=== PATIENT | male | born 1980 | race Caucasian/White ===

== ENCOUNTER 2021-09-17 07:07 | Outpatient (CLI) | payer BC, SELFPAY ==
--- NOTE | 2021-09-17 | ECHO_ITS ---
Patient Info Name: Rsoendo Ley Age: 41 years : 1980 Gender: Male Ht: 70 in Wt: 220 lbs BSA: 2.25 m2 HR: 81 bpm BP: 135 / 90 mmHg Technical Quality: Fair Exam Date: 09/17/2021 8:02 AM Exam Location: [facility] Patient Status: Outpatient Admit Date: 09/17/2021 Staff Ordering Physician: AlliAndree NP Customer Marketing Manager: Aspen Wheeler RDCS Attending Provider: EmelyAndree NP Exam Type: CA echo doppler color flow Study Info Indications I25.2 - HISTORY OF OLD MYOCARDIAL INFARCTION Complete two-dimensional, color flow and Doppler transthoracic echocardiogram is performed. Summary 1. Complete two-dimensional, color flow and Doppler transthoracic echocardiogram is performed. 2. Normal LV size and wall thickness, normal LV systolic and diastolic function, ejection fraction 60-65%. Global longitudinal strain -20 %. Mitral valve mildly thickened, no significant MR. Normal aortic valve structure, no stenosis. Trivial TR, RVSP 30 mmHg. Left Ventricle Left ventricular chamber dimension is normal. Left ventricular systolic function is normal, estimated at 65-70%. There is no increased left ventricular wall thickness. The left ventricular diastolic function is normal. Right Ventricle Right ventricular chamber dimension is normal. Right ventricular systolic function is normal. Left Atria Left atrial chamber dimension is normal. Right Atria Right atrial chamber dimension is normal. Aortic Valve The aortic valve is normal. There is no aortic valve stenosis. Pulmonic Valve The pulmonic valve is normal. Mitral Valve The mitral valve has thickened leaflets. There is no mitral valve regurgitation. Tricuspid Valve The tricuspid valve leaflets are normal. There is trace tricuspid valve regurgitation. Aorta The aortic root size at the sinus of Valsalva is normal. Left Ventricular Outflow Tract Name Value Normal LVOT 2D LVOT Diameter 2.0 cm LVOT Doppler LVOT Peak Gradient 4 mmHg LVOT Mean Gradient 2 mmHg LVOT VTI 19 cm LVOT VTI/AV VTI Ratio 0.8 LVOT Stroke Volume 61 ml LVOT CO 5.1 l/min LVOT CI 2.3 l/min/m2 Pulmonic Valve Name Value Normal RVOT Doppler RVOT Peak Gradient 3 mmHg PV Doppler PV Peak Gradient 6 mmHg Mitral Valve Name Value Normal MV Doppler
== END 2021-09-17 07:08 | disposition home or self-care (01) ==
PROVIDERS: PCP Nurse Practitioner Adult Health; Visit Provider Nurse Practitioner Adult Health
DX: I25.2 Old myocardial infarction (principal)
CPT/HCPCS: 93306

== ENCOUNTER 2024-04-20 14:38 | Outpatient (CLI) | payer BC, SELFPAY ==
[2024-04-20 19:38] LABS: Basophils Absolute Auto 0.1 K/mm3 (0.0-0.1); Basophils Percent Auto 0.8 % (0.2-1.2); Eosinophils Absolute Auto 0.2 K/mm3 (0-0.3); Eosinophils Percent Auto 2.9 % (0-4.4); Hematocrit 50.7 % (42.0-52.0); Hemoglobin 16.3 g/dL (14.0-18.0); Immature Granulocyte Absolute 0.02 K/mm3 (0.00-0.031); Immature Granulocyte Percent A 0.3 % (0-0.5); Lymphocytes Absolute Auto 2.52 K/mm3 (0.9-3.2); Lymphocytes Percent Auto 34.9 % (18.3-44.2); Mean Corpuscular HGB Conc 32.1 g/dl (32-36); Mean Corpuscular Hemoglobin 30.2 pg (26-34); Mean Corpuscular Volume 93.9 fl (80-100); Mean Platelet Volume 10.2 fl (7.4-10.4); Monocytes Absolute Auto 0.5 K/mm3 (0.1-0.6); Monocytes Percent Auto 6.6 % (2.6-8.5); Neutrophils Absolute Auto 3.9 K/mm3 (1.3-6.7); Neutrophils Percent Auto 54.5 % (45.5-73.1); Platelet Count Result 262 k/mm3 (150-375); Red Cell Distribution Width 12.8 % (11.5-14.5); White Blood Count 7.2 K/mm3 (4.5-10.0)
[2024-04-20 19:54] LABS: Alanine Aminotransferase 35 U/L (6-50); Albumin Level 4.8 g/dL (3.5-5.1); Alkaline Phosphatase 52 U/L (38-126); Anion Gap 12 mmol/L (4-12); Aspartate Amino Transferase 61 U/L (17-59); Bilirubin,Total 0.7 mg/dL (0.2-1.3); Blood Urea Nitrogen 14 mg/dL (9-20); Calcium 9.3 mg/dL (8.4-10.2); Carbon Dioxide 31 mmol/L (22-30); Chloride 96 mmol/L (98-107); Cholesterol 149 mg/dL (0-200); Estimated Glomerular Filt Rate > 60; Glucose 105 mg/dL (65-110); HDL Direct 34 mg/dL; Potassium 3.1 mmol/L (3.4-5.0); Sodium 139 mmol/L (137-145); Triglycerides 286 mg/dL (<150)
[2024-04-20 20:05] LABS: LDL Cholesterol Direct 72 mg/dL
[2024-04-20 20:08] LABS: Hemoglobin A1C 6.8 % (<5.7)
[2024-04-20 20:32] LABS: Microalbumin Urine Random < 6.0 mg/L (0-16.7)
[2024-04-20 21:01] LABS: Folic Acid 9.9 ng/mL (2.76->20)
[2024-04-21 07:07] LABS: Creatinine Urine 103.5 mg/dL; MALB Creatinine Ratio < 5.8 mg/g (0-30)
== END 2024-04-20 14:39 | disposition home or self-care (01) ==
LOC: ANHBWCLAB 14:42
PROVIDERS: PCP Nurse Practitioner Adult Health; Visit Provider Nurse Practitioner Adult Health
DX: E11.9 Type 2 diabetes mellitus without complications (principal); I10 Essential (primary) hypertension; Z13.9 Encounter for screening, unspecified
CPT/HCPCS: 36415; 80053; 80061; 82043; 82565; 82607; 82746; 83036; 83735; 84439; 84443; 84480; 85025

== ENCOUNTER 2024-05-02 13:18 | Outpatient (CLI) | payer BC, SELFPAY ==
--- NOTE | ~2024-05-02 | XR_ITS ---
XR abdomen/kub 1V Ordering provider: Andree Carson APRN History: . R10.9 - Unspecified abdominal pain . Comparison: None. FINDINGS: BOWEL: Nonobstructive bowel gas pattern. ORGANOMEGALY: None. SIGNIFICANT PATHOLOGIC CALCIFICATIONS: None. OTHER: No free air is seen under the diaphragm. IMPRESSION: NO ACUTE ABDOMINAL FINDINGS. Reviewed, dictated and finalized at location A.
[2024-05-02 18:23] LABS: Hemoglobin 16.7 g/dL (14.0-18.0); Mean Corpuscular HGB Conc 32.1 g/dl (32-36); Mean Corpuscular Hemoglobin 30.5 pg (26-34); Mean Corpuscular Volume 94.9 fl (80-100); Mean Platelet Volume 9.6 fl (7.4-10.4); Platelet Count Result 289 k/mm3 (150-375); Red Blood Count 5.48 M/mm3 (4.6-6.20); White Blood Count 7.6 K/mm3 (4.5-10.0)
[2024-05-02 18:53] LABS: Alanine Aminotransferase 42 U/L (6-50); Albumin Level 4.9 g/dL (3.5-5.1); Alkaline Phosphatase 63 U/L (38-126); Amylase 88 U/L (30-110); Anion Gap 9 mmol/L (4-12); Aspartate Amino Transferase 78 U/L (17-59); Bilirubin,Total 0.9 mg/dL (0.2-1.3); Blood Urea Nitrogen 13 mg/dL (9-20); Calcium 9.2 mg/dL (8.4-10.2); Carbon Dioxide 29 mmol/L (22-30); Chloride 104 mmol/L (98-107); Estimated Glomerular Filt Rate > 60; Glucose 95 mg/dL (65-110); Lipase 102 U/L (23-300); Sodium 142 mmol/L (137-145)
== END 2024-05-02 13:19 | disposition home or self-care (01) ==
LOC: ANHBWCLAB 13:19
PROVIDERS: PCP Nurse Practitioner Adult Health; Visit Provider Nurse Practitioner Adult Health
DX: R10.9 Unspecified abdominal pain (principal)
CPT/HCPCS: 36415; 74018; 80053; 82150; 83690; 85027

== ENCOUNTER 2024-06-07 09:46 | Outpatient (CLI) | payer BC, SELFPAY ==
--- NOTE | ~2024-06-07 | XR_ITS ---
XR shoulder RT min 2V Ordering provider: Andree Carson APRN History: . S49.90XA - Unspecified injury of shoulder and upper arm, ... . Comparison: None. FINDINGS: BONES: No acute fracture or dislocation. JOINT SPACES: The acromioclavicular joint is normal. The glenohumeral joint is normal. SOFT TISSUES: Normal. IMPRESSION: No acute osseous abnormality right shoulder. Reviewed, dictated and finalized at location A.
== END 2024-06-07 09:47 | disposition home or self-care (01) ==
LOC: ANHBWCIMG 09:48
PROVIDERS: PCP Nurse Practitioner Adult Health; Visit Provider Nurse Practitioner Adult Health
DX: S49.90XA Unspecified injury of shoulder and upper arm, unspecified arm, initial encounter (principal); X58.XXXA Exposure to other specified factors, initial encounter
CPT/HCPCS: 73030

== ENCOUNTER 2024-08-23 13:37 | Outpatient (CLI) | payer BC, SELFPAY ==
--- NOTE | ~2024-08-23 | XR_ITS ---
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 RESULT: Lines, tubes, and devices: ACDF hardware. Lungs and pleura: Clear. Cardiomediastinal silhouette: Stable. Other: No acute osseous or upper abdominal finding. IMPRESSION: No acute cardiopulmonary process. Reviewed, dictated and finalized at location K. NE SURVEYOR
[2024-08-23 20:32] LABS: Alanine Aminotransferase 37 U/L (6-50); Albumin Level 4.7 g/dL (3.5-5.1); Alkaline Phosphatase 53 U/L (38-126); Anion Gap 4 mmol/L (4-12); Aspartate Amino Transferase 58 U/L (17-59); Bilirubin,Total 0.7 mg/dL (0.2-1.3); Blood Urea Nitrogen 11 mg/dL (9-20); Calcium 9.2 mg/dL (8.4-10.2); Carbon Dioxide 32 mmol/L (22-30); Chloride 105 mmol/L (98-107); Cholesterol 102 mg/dL (0-200); Estimated Glomerular Filt Rate > 60; Glucose 81 mg/dL (65-110); HDL Direct 49 mg/dL; Potassium 3.9 mmol/L (3.4-5.0); Sodium 141 mmol/L (137-145); Triglycerides 100 mg/dL (<150)
[2024-08-23 20:34] LABS: Hemoglobin A1C 5.5 % (<5.7)
[2024-08-23 20:43] LABS: LDL Cholesterol Direct 31 mg/dL
[2024-08-23 21:02] LABS: Creatinine Urine 27.8 mg/dL; Thyroid Stimulating Hormone 0.268 uIU/mL (0.465-4.680)
[2024-08-23 21:51] LABS: MALB Creatinine Ratio < 21.6 mg/g (0-30); Microalbumin Urine Random < 6.0 mg/L (0-16.7)
== END 2024-08-23 13:38 | disposition home or self-care (01) ==
PROVIDERS: PCP Nurse Practitioner Adult Health; Visit Provider Nurse Practitioner Adult Health
DX: R05.9 Cough, unspecified (principal); E03.9 Hypothyroidism, unspecified; E11.9 Type 2 diabetes mellitus without complications
CPT/HCPCS: 36415; 71046; 80053; 80061; 82043; 82565; 83036; 84443

== ENCOUNTER 2025-02-27 13:31 | Outpatient (CLI) | payer BC, SELFPAY ==
--- OUTSIDE RECORDS SUMMARY | 2025-02-27 14:35 | XMS_ITS | Encounter Summary ---
Author Organization [facility] Address [address] [address] Care Team Providers Care Tip Fixer Name Role Phone Jus Balderas MD Primary Care Provi melissa Felice Lindsey MD Primary Care Provider [phone] Jus Balderas MD Primary Care Provi melissa Felice Lindsey MD Primary Care Provider [phone] Kenneth Aviles MD Primary Care Provider [phone] Andree Carson NP Primary Care Provider [phone] Encounter Details Date Type Department Care Team (Latest Contact Info) Description 10/30/2016 Orders Only [facility] [place] Provider[place] MD [address] [place] [id number] Social History Tobacco Use Types Packs/Day Years Used Date Smoking Tobacco: Never Assessed Alcohol Use Standard Drinks/Week Comments Yes 0 (1 standard drink = 0.6 oz pur e alcohol) Sex and Gender Information Value Date Recorded Sex Assigned at Not on file Legal Sex Male 11:26 AM [employer] Gender Identity Not on file Sexual Orientation Not on file documented as of this encounter Plan of Treatment Not on file documented as of this encounter Procedures Procedure Name Priority Date/Time Associated Diagnosis Comments CARDIOLOGY REPORT 10/30/2016 documented in this encounter Results * CARDIOLOGY REPORT (10/30/2016) Anatomical Region Laterality Modality Other Narrative 10/30/2016 Ordered by an unspecified provider. us Historical Provider [facility] Final Result documented in this encounter Visit Diagnoses Not on filedocumented in this encounter Additional Health Concerns Infection Onset Date Last Indicated Resolved Time COVID: Suspected 05/08/2023 05/08/2023 05/08/2023 1:01 PM CDT COVID: Suspected 05/12/2023 05/12/2023 05/12/2023 12:06 PM CDT COVID: Suspected 07/01/2023 07/01/2023 07/01/2023 9:05 AM CDT COVID19 07/01/2023 07/01/2023 07/11/2023 3:06 AM CDT COVID: Recovered Comment:Added based on recent COVID infection. 07/11/2023 07/16/2023 10/09/2023 3:[address] COVID: Suspected 10/18/2024 10/18/2024 10/18/2024 7:23 PM [employer] documented as of this encounter Care Teams Tip Fixer Relationship Specialty Start Date End Date Jus Balderas MD [address] [place] [address] PCP - General 12/12/16 05/11/17 Felice Lindsey MD [address] [place] [address] PCP - General 11/14/16 12/11/16 Jus Balderas MD [address] [place] [address] PCP - General 07/09/12 11/13/16 Felice Lindsey MD [facility] [employer] [address] [place] [address] PCP - General 05/12/17 04/28/23 Kenneth Aviles MD [address] [place] [address] PCP - General Family Medicine 04/29/23 10/17/24 Andree Carson NP [address] [place] [address] [place] [address] PCP - General Nurse Practitioner 10/18/24 documented as of this encounter
--- OUTSIDE RECORDS SUMMARY | 2025-02-27 14:35 | XMS_ITS | Data Portability ---
Author Organization [place] [facility], Main Office Address [address] [place] [address] Assessment No assessment recorded. Plan of Treatment Reminders Order Date Submit Date Provider Last Modified By Organization Details Last Modified Time Details Appointments None recorded. Lab CMP, serum or plasma [address] (Lab), [address] [place], [address], 3 08:15:08 glycohemog lobin, total, blood [address] (Lab), [address] [place], [address], 3 08:15:08 TSH, serum or plasma [address] (Lab), [address] [place], [address], 3 08:15:08 lipid panel, serum [address] (Lab), [address] [place], [address], 3 08:15:07 Referral sleep medicine referral - has cpap and sleep study done [facility] in [place], [place]. Please call the pt to make an appointmen t. 2022 023 [email or web address] [facility], [address], [place], [address], 18:00:17 Procedures None recorded. Surgeries None recorded. Imaging None recorded. Medication Orders zolpidem 10 mg tablet 2022 023 [id number], [address], [place], [place], [id number], 17:16:34 Patient TargetsNo targets recorded. Patient Instructions Encounter Date Encounter Id Patient Instructions Last Modified By Organization Details Last Modified Time 12/23/2022 [id number] mo fu dm, SHERRILL, lipid, htn, thyroid, migraine, mood swings. [email or web address] Not available 12/23/2022 17:18:43 Reason for Referral Sleep Medicine Referral for Sleep apnea has cpap and sleep study done per [facility] in [place], [place]. Please call the pt to make an appointment. Referring Physician: Kaela Trinidad, Family Medicine, Encounter Date: 12/23/2022 Results Created Date Observation Date Name Description Value Unit Range Abnormal Flag Note LastModifiedBy Organization Detail LastModifiedTime 11/11/1911/12/2021 TSH TSH 11.30 mIU/L 0.40-4 .50 high Not Available [address] [address] [place], [address], 11/12/2021 15:01:26 11/11/19 22 11/12/2021 HEPAT IC FUNCT ION PANEL protein, total 7.1 g/dL 6.1-8. 1 normal Not Available [facility] [address] [address] [place], [address], 11/12/2021 15:01:25 11/11/19 22 11/12/2021 HEPAT IC FUNCT ION PANEL albumin 4.8 g/dL 3.6-5. 1 normal Not Available [facility] [address] [address] [place], [address], 11/12/2021 15:01:25 11/11/19 22 11/12/2021 HEPAT IC FUNCT ION PANEL globulin 2.3 g/dL_ (calc ) 1.9-3. 7 normal Not Available [address], [address], 11/12/2021 15:01:25 11/11/19 22 11/12/2021 HEPAT IC FUNCT ION PANEL albumin/glob ulin ratio 2.1 (calc ) 1.0-2. 5 normal Not Available [address], [address], 11/12/2021 15:01:25 11/11/19 22 11/12/2021 HEPAT IC FUNCT ION PANEL bilirubin, total 0.8 mg/dL 0.2-1. 2 normal Not Available [address], [address], 11/12/2021 15:01:25 11/11/19 22 11/12/2021 HEPAT IC FUNCT ION PANEL bilirubin, direct 0.1 mg/dL < or = 0.2 normal Not Available [address], [address], 11/12/2021 15:01:25 11/11/19 22 11/12/2021 HEPAT IC FUNCT ION PANEL bilirubin, indirect 0.7 mg/dL _(miaa c) 0.2-1. 2 normal Not Available [address], [address], 11/12/2021 15:01:25 11/11/19 22 11/12/2021 HEPAT IC FUNCT ION PANEL alkaline phosphatase 55 U/L 36-130 normal Not Available [facility] [employer] [address], [address], 11/12/2021 15:01:25 11/11/19 22 11/12/2021 HEPAT IC FUNCT ION PANEL AST 15 U/L 10-40 normal Not Available [address], [address], 11/12/2021 15:01:25 11/11/19 22 11/12/2021 HEPAT IC FUNCT ION PANEL ALT 23 U/L 9-46 normal Not Available [address], [address], 11/12/2021 15:01:25 11/11/19 22 11/12/2021 BASIC METAB OLIC PANEL glucose 91 mg/dL 65-99 normal Fasti ng refer ence inter luanne Not Available [address], [address], 11/12/2021 15:01:25 11/11/19 22 11/12/2021 BASIC METAB OLIC PANEL urea nitrogen (BUN) 13 mg/dL 7-25 normal Not Available [address], [address], 11/12/2021 15:01:25 11/11/19 22 11/12/2021 BASIC METAB OLIC PANEL creatinine 1.08 mg/dL 0.60-1 .35 normal Not Available [address], [address], 11/12/2021 15:01:25 11/11/19 22 11/12/2021 BASIC METAB OLIC PANEL eGFR non-afr. vincentian 84 mL/mi n/1.7 3m2 > or = 60 normal Not Available [address], [address], 11/12/2021 15:01:25 11/11/19 22 11/12/2021 BASIC METAB OLIC PANEL eGFR 98 mL/mi n/1.7 3m2 > or = 60 normal Not Available [address], [address], 11/12/2021 15:01:25 11/11/19 22 11/12/2021 BASIC METAB OLIC PANEL BUN/creatini ne ratio not applic able (calc ) 6-22 Not Available [address], [address], 11/12/2021 15:01:25 11/11/19 22 11/12/2021 BASIC METAB OLIC PANEL sodium 137 mmol/ L 135-14 6 normal Not Available [address], [address], 11/12/2021 15:01:25 11/11/19 22 11/12/2021 BASIC METAB OLIC PANEL potassium 3.9 mmol/ L 3.5-5. 3 normal Not Available [address], [address], 11/12/2021 15:01:25 11/11/19 22 11/12/2021 BASIC METAB OLIC PANEL chloride 104 mmol/ L 98-110 normal Not Available [address], [address], 11/12/2021 15:01:25 11/11/19 22 11/12/2021 BASIC METAB OLIC PANEL carbon dioxide 21 mmol/ L 20-32 normal Not Available [address], [address], 11/12/2021 15:01:25 11/11/19 22 11/12/2021 BASIC METAB OLIC PANEL calcium 9.2 mg/dL 8.6-10 .3 normal Not Available [address], [address], 11/12/2021 15:01:25 11/11/19 22 11/12/2021 ALBUM INCLEMENT URINE W/CRE ATINI NE creatinine, random urine 218 mg/dL 20-320 normal Not Available [address], [address], 11/12/2021 15:01:24 11/11/19 22 11/12/2021 ALBUM IN, RANDO M URINE W/CRE ATINI NE albumin, urine 1.6 mg/dL see note: normal Refer ence Range : Refer ence Range Not estab lishe d Not Available [address], [address], 11/12/2021 15:01:24 11/11/19 22 11/12/2021 ALBUM IN, RANDO M URINE W/CRE ATINI NE albumin/crea tinine ratio, random urine 7 mcg/m g_cre at <30 normal The ADA defin es abnor malit ies in album in excre tion as follo ws: Album inuri a Categ ory Resul t (mcg/ mg creat inine ) Aisha l to Mildl y incre ased <30 Moder ately incre ased 30-29 9 Sever kellee incre ased > OR = 300 The ADA recom mends that at least two of three speci mens colle cted withi n a 3-6 month perio d be abnor mal befor e consi anne g a patie nt to be withi n a diagn ostic categ ory. Not Available [address], [address], 11/12/2021 15:01:24 11/11/19 22 11/12/2021 LIPID PANEL , STAND JAMIE cholesterol, total 236 mg/dL <200 high Not Available [facility] [address] [place], [address], 11/12/2021 15:01:24 11/11/19 22 11/12/2021 LIPID PANEL , STAND JAMIE HDL cholesterol 39 mg/dL > or = 40 low Not Available [address], [address], 11/12/2021 15:01:24 11/11/19 22 11/12/2021 LIPID PANEL , STAND JAMIE triglyceride s 212 mg/dL <150 high If a non-f astin g speci men was colle cted, consi melissa repea t trigl yceri de testi ng on a fasti ng speci men if clini hitesh indic ated. Shawn mehta et al. J. of Clin. Lipid ol. 2015; 9:129 -169. Not Available [address], [address], 11/12/2021 15:01:24 11/11/19 22 11/12/2021 LIPID PANEL , STAND JAMIE LDL-choleste rol 159 mg/dL _(maia c) high Refer ence range : <100 Josh able range <100 mg/dL for prima ry preve ntion ; <70 mg/dL for patie nts with CHD or diabe tic patie nts with > or = 2 CHD risk facto rs. LDL-C is now calcu lated using the Lina n-Hop kins calcu latio n, which is a valid ated novel metho d provi ding rina r accur acy than the Fried cayden equat ion in the estim ation of LDL-C . Lina owen SS et al. ALYSSIA. 2013; 310(1 9): 2061- 2068 (http ://ed ucati on.Qu UKDN Waterflow. com/f aq/FA Q164) Not Available [address], [address], 11/12/2021 15:01:24 11/11/19 22 11/12/2021 LIPID PANEL , STAND JAMIE chol/HDLC ratio 6.1 (calc ) <5.0 high Not Available [address], [address], 11/12/2021 15:01:24 11/11/19 22 11/12/2021 LIPID PANEL , STAND JAMIE non HDL cholesterol 197 mg/dL _(maia c) <130 high For patie nts with diabe ericka plus 1 major ASCVD risk facto r, treat ing to a non-H DL-C goal of <100 mg/dL (LDL- C of <70 mg/dL ) is consi dered a thera peuti c optio n. Not Available [facility] [id number] [place] [address], [address], 11/12/2021 15:01:24 11/11/19 22 11/11/2021 hemog lobin A1C, rand mckenzie HgbA1C 7.4 Not Available [facility] [address] , [address], [place], [address], 11/11/2021 10:52:20 03/25/20 22 03/26/2022 HEMOG LOBIN A1C hemoglobin A1C 5.9 %_of_ total _HGB <5.7 high For someo ne witho ut known diabe ericka, a hemog lobin A1c value betwe en 5.7% and 6.4% is consi stent with predi abete s and shoul d be confi rmed with a follo w-up test. For someo ne with known diabe ericka, a value <7% indic ates that their diabe ericka is well contr olled . A1c targe ts shoul d be indiv idual ized based on durat ion of diabe ericka, age, comor bid condi tions , and other consi derat ions. This assay resul t is consi stent with an incre ased risk of diabe ericka. Curre ntly, no conse nsus exist s alfredar evgeny use of hemog lobin A1c for diagn osis of diabe ericka for child julián. Not Available [facility] [address] [address], [place], [address], 03/26/2022 15:13:29 03/25/20 22 03/26/2022 VITAM IN D,25- OH,TO CAMDEN,I A vitamin D,25-oh,tota l,ia 88 NG/mL 30-100 normal Vitam in D Statu s 25-OH Vitam in D: Defic iency : <20 ng/mL Insuf ficie ncy: 20 - 29 ng/mL Optim al: > or = 30 ng/mL For 25-OH Vitam in D testi ng on patie nts on D2-penn pplem entat ion and patie nts for whom quant itati on of D2 and D3 fract ions is requi red, the [facility] e[facility](TM ) 25-OH VIT D, (D2,D 3), LC/MS /MS is recom artie d: order code [id number] (juan ents >2yrs ). See Note 1 Note 1 For addit ional infor esteban archer refer to http: //[facility] caroline Soto stDia gnost ics.c om/fa q/FAQ 199 (This link is being provi ded for infor cherise dee/ educcaleb lópez purpo ses only. ) Not Available [address] [address] [place], [address], 03/26/2022 15:13:29 03/25/20 22 03/26/2022 TSH TSH 6.89 mIU/L 0.40-4 .50 high Not Available [address], [address], 03/26/2022 15:13:28 03/25/20 22 03/26/2022 HEPAT IC FUNCT ION PANEL bilirubin, direct 0.2 mg/dL < or = 0.2 normal Not Available [address], [address], 03/26/2022 15:13:28 03/25/20 22 03/26/2022 HEPAT IC FUNCT ION PANEL bilirubin, indirect 0.6 mg/dL _(maia c) 0.2-1. 2 normal Not Available [address] [address] [place], [address], 03/26/2022 15:13:28 03/25/20 22 03/26/2022 HEPAT IC FUNCT ION PANEL alkaline phosphatase 49 U/L 36-130 normal Not Available [facility] [employer] [address] [address] [place], [address], 03/26/2022 15:13:28 03/25/20 22 03/26/2022 HEPAT IC FUNCT ION PANEL AST 18 U/L 10-40 normal Not Available [address], [address], 03/26/2022 15:13:28 03/25/20 22 03/26/2022 HEPAT IC FUNCT ION PANEL ALT 23 U/L 9-46 normal Not Available [address], [address], 03/26/2022 15:13:28 03/25/20 22 03/26/2022 HEPAT IC FUNCT ION PANEL protein, total 7.4 g/dL 6.1-8. 1 normal Not Available [address], [address], 03/26/2022 15:13:28 03/25/20 22 03/26/2022 HEPAT IC FUNCT ION PANEL albumin 4.9 g/dL 3.6-5. 1 normal Not Available [address], [address], 03/26/2022 15:13:28 03/25/20 22 03/26/2022 HEPAT IC FUNCT ION PANEL globulin 2.5 g/dL_ (calc ) 1.9-3. 7 normal Not Available [address], [address], 03/26/2022 15:13:28 03/25/20 22 03/26/2022 HEPAT IC FUNCT ION PANEL albumin/glob ulin ratio 2.0 (calc ) 1.0-2. 5 normal Not Available [address], [address], 03/26/2022 15:13:28 03/25/20 22 03/26/2022 HEPAT IC FUNCT ION PANEL bilirubin, total 0.8 mg/dL 0.2-1. 2 normal Not Available [address], [address], 03/26/2022 15:13:28 03/25/20 22 03/26/2022 BASIC METAB OLIC PANEL glucose 87 mg/dL 65-99 normal Fasti ng refer ence inter luanne Not Available [address], [address], 03/26/2022 15:13:28 03/25/20 22 03/26/2022 BASIC METAB OLIC PANEL urea nitrogen (BUN) 16 mg/dL 7-25 normal Not Available [address], [address], 03/26/2022 15:13:28 03/25/20 22 03/26/2022 BASIC METAB OLIC PANEL creatinine 1.22 mg/dL 0.60-1 .29 normal Not Available [address], [address], 03/26/2022 15:13:28 03/25/20 22 03/26/2022 BASIC METAB OLIC PANEL eGFR 76 mL/mi n/1.7 3m2 > or = 60 normal The eGFR is based on the CKD-E PI 2020 equat ion. To calcu late the new eGFR from a previ ous Creat inine or Cysta andrey C resul t, go to https ://sea ceballos.sophia ray/oly yung s/ kdoqi /gfr% 5Fcal culat or Not Available [address], [address], 03/26/2022 15:13:28 03/25/20 22 03/26/2022 BASIC METAB OLIC PANEL BUN/creatini ne ratio not applic able (calc ) 6-22 Not Available [address], [address], 03/26/2022 15:13:28 03/25/20 22 03/26/2022 BASIC METAB OLIC PANEL sodium 141 mmol/ L 135-14 6 normal Not Available [address], [address], 03/26/2022 15:13:28 03/25/20 22 03/26/2022 BASIC METAB OLIC PANEL potassium 4.2 mmol/ L 3.5-5. 3 normal Not Available [address], [address], 03/26/2022 15:13:28 03/25/20 22 03/26/2022 BASIC METAB OLIC PANEL chloride 103 mmol/ L 98-110 normal Not Available [address], [address], 03/26/2022 15:13:28 03/25/20 22 03/26/2022 BASIC METAB OLIC PANEL carbon dioxide 31 mmol/ L 20-32 normal Not Available [address], [address], 03/26/2022 15:13:28 03/25/20 22 03/26/2022 BASIC METAB OLIC PANEL calcium 9.6 mg/dL 8.6-10 .3 normal Not Available [address], [address], 03/26/2022 15:13:28 03/25/20 22 03/26/2022 ALBUM IN, RANDO M URINE W/CRE ATINI NE creatinine, random urine 81 mg/dL 20-320 normal Not Available [address], [address], 03/26/2022 15:13:27 03/25/20 22 03/26/2022 ALBUM IN, RANDO M URINE W/CRE ATINI NE albumin, urine 0.5 mg/dL see note: normal Refer ence Range : Refer ence Range Not estab lishe d Not Available [address], [address], 03/26/2022 15:13:27 03/25/20 22 03/26/2022 ALBUM IN, RANDO M URINE W/CRE ATINI NE albumin/crea tinine ratio, random urine 6 mcg/m g_cre at <30 normal The ADA defin es abnor malit ies in album in excre tion as follo ws: Album inuri a Categ ory Resul t (mcg/ mg creat inine ) Aisha l to Mildl y incre ased <30 Moder ately incre ased 30-29 9 Sever kellee incre ased > OR = 300 The ADA recom mends that at least two of three speci mens colle cted withi n a 3-6 month perio d be abnor mal befor e consi anne g a patie nt to be withi n a diagn ostic categ ory. Not Available [address], [address], 03/26/2022 15:13:27 03/25/20 22 03/26/2022 LIPID PANEL , STAND JAMIE cholesterol, total 157 mg/dL <200 normal Not Available [address], [address], 03/26/2022 15:13:27 03/25/20 22 03/26/2022 LIPID PANEL , STAND JAMIE HDL cholesterol 42 mg/dL > or = 40 normal Not Available [address], [address], 03/26/2022 15:13:27 03/25/20 22 03/26/2022 LIPID PANEL , STAND JAMIE triglyceride s 242 mg/dL <150 high If a non-f astin g speci men was colle cted, consi melissa repea t trigl yceri de testi ng on a fasti ng speci men if clini hitesh indic ated. Shawn mehta et al. J. of Clin. Lipid ol. 2015; 9:129 -169. Not Available [address], [address], 03/26/2022 15:13:27 03/25/20 22 03/26/2022 LIPID PANEL , STAND JAMIE LDL-choleste rol 81 mg/dL _(maia c) normal Refer ence range : <100 Josh able range <100 mg/dL for prima ry preve ntion ; <70 mg/dL for patie nts with CHD or diabe tic patie nts with > or = 2 CHD risk facto rs. LDL-C is now calcu lated using the Lina n-Hop kins calcu springchong n, which is a valid ated novel metho d provi evgeny rina r accur acy than the Fried cayden equat ion in the estim ation of LDL-C . Lina owen SS et al. ALYSSIA. 2013; 310(1 9): 2061- 206 (http ://ed ucati on.Qu UKDN Waterflow. com/f aq/FA Q164) Not Available [facility] [address] [address], [place], [address], 03/26/2022 15:13:27 03/25/20 22 03/26/2022 LIPID PANEL , STAND JAMIE chol/HDLC ratio 3.7 (calc ) <5.0 normal Not Available [facility] [address] [address], [place], [address], 03/26/2022 15:13:27 03/25/20 22 03/26/2022 LIPID PANEL , STAND JAMIE non HDL cholesterol 115 mg/dL _(maia c) <130 normal For patie nts with diabe ericka plus 1 major ASCVD risk facto r, treat ing to a non-H DL-C goal of <100 mg/dL (LDL- C of <70 mg/dL ) is consi dered a thera peuti c optio n. Not Available [facility] [address] [place], [address], 03/26/2022 15:13:27 09/05/20 22 09/06/2022 HEMOG LOBIN A1C hemoglobin A1C 6.3 %_of_ total _HGB <5.7 high For someo ne witho ut known diabe ericka, a hemog lobin A1c value betwe en 5.7% and 6.4% is consi stent with predi abete s and shoul d be confi rmed with a follo w-up test. For someo ne with known diabe ericka, a value <7% indic ates that their diabe ericka is well contr olled . A1c targe ts shoul d be indiv idual ized based on durat ion of diabe ericka, age, comor bid condi tions , and other consi derat ions. This assay resul t is consi stent with an incre ased risk of diabe ericka. Curre ntly, no conse nsus exist s regar ding use of hemog lobin A1c for diagn osis of diabe ericka for child julián. Not Available [facility] [address], [address], 09/06/2022 03:19:48 09/05/20 22 09/06/2022 T4, FREE T4, free 0.9 NG/dL 0.8-1. 8 normal Not Available [facility] [address], [address], 09/06/2022 03:19:48 09/05/20 22 09/06/2022 TSH W/REF COLTON TO FT4 TSH w/reflex to FT4 9.53 mIU/L 0.40-4 .50 high Not Available [facility] [address], [address], 09/06/2022 03:19:47 09/05/20 22 09/06/2022 CBC (INCL UDES DIFF/ PLT) white blood cell count 5.8 thous and/u L 3.8-10 .8 normal Not Available [facility] [address], [address], 09/06/2022 03:19:47 09/05/20 22 09/06/2022 CBC (INCL UDES DIFF/ PLT) red blood cell count 5.64 alvaro on/uL 4.20-5 .80 normal Not Available [facility] [address], [address], 09/06/2022 03:19:47 09/05/20 22 09/06/2022 CBC (INCL UDES DIFF/ PLT) hemoglobin 16.9 g/dL 13.2-1 7.1 normal Not Available [address], [address], 09/06/2022 03:19:47 09/05/20 22 09/06/2022 CBC (INCL UDES DIFF/ PLT) hematocrit 50.6 % 38.5-5 0.0 high Not Available [address], [address], 09/06/2022 03:19:47 09/05/20 22 09/06/2022 CBC (INCL UDES DIFF/ PLT) MCV 89.7 fL 80.0-1 00.0 normal Not Available [address], [address], 09/06/2022 03:19:47 09/05/20 22 09/06/2022 CBC (INCL UDES DIFF/ PLT) MCH 30.0 pg 27.0-3 3.0 normal Not Available [address], [address], 09/06/2022 03:19:47 09/05/20 22 09/06/2022 CBC (INCL UDES DIFF/ PLT) MCHC 33.4 g/dL 32.0-3 6.0 normal Not Available [address], [address], 09/06/2022 03:19:47 09/05/20 22 09/06/2022 CBC (INCL UDES DIFF/ PLT) RDW 12.4 % 11.0-1 5.0 normal Not Available [address], [address], 09/06/2022 03:19:47 09/05/20 22 09/06/2022 CBC (INCL UDES DIFF/ PLT) platelet count 239 thous and/u L 140-40 0 normal Not Available [address], [address], 09/06/2022 03:19:47 09/05/20 22 09/06/2022 CBC (INCL UDES DIFF/ PLT) MPV 10.9 fL 7.5-12 .5 normal Not Available [address], [address], 09/06/2022 03:19:47 09/05/20 22 09/06/2022 CBC (INCL UDES DIFF/ PLT) absolute neutrophils 3323 cells /uL 1500-7 800 normal Not Available [address], [address], 09/06/2022 03:19:47 09/05/20 22 09/06/2022 CBC (INCL UDES DIFF/ PLT) absolute lymphocytes 1763 cells /uL 850-39 00 normal Not Available [address], [address], 09/06/2022 03:19:47 09/05/20 22 09/06/2022 CBC (INCL UDES DIFF/ PLT) absolute monocytes 516 cells /uL 200-95 0 normal Not Available [address], [address], 09/06/2022 03:19:47 09/05/20 22 09/06/2022 CBC (INCL UDES DIFF/ PLT) absolute eosinophils 157 cells /uL 15-500 normal Not Available [address], [address], 09/06/2022 03:19:47 09/05/20 22 09/06/2022 CBC (INCL UDES DIFF/ PLT) absolute basophils 41 cells /uL 0-200 normal Not Available [address], [address], 09/06/2022 03:19:47 09/05/20 22 09/06/2022 CBC (INCL UDES DIFF/ PLT) neutrophils 57.3 % normal Not Available [address], [address], 09/06/2022 03:19:47 09/05/20 22 09/06/2022 CBC (INCL UDES DIFF/ PLT) lymphocytes 30.4 % normal Not Available [address], [address], 09/06/2022 03:19:47 09/05/20 22 09/06/2022 CBC (INCL UDES DIFF/ PLT) monocytes 8.9 % normal Not Available [address], [address], 09/06/2022 03:19:47 09/05/20 22 09/06/2022 CBC (INCL UDES DIFF/ PLT) eosinophils 2.7 % normal Not Available [address], [address], 09/06/2022 03:19:47 09/05/20 22 09/06/2022 CBC (INCL UDES DIFF/ PLT) basophils 0.7 % normal Not Available [address], [address], 09/06/2022 03:19:47 09/05/20 22 09/06/2022 COMPR EHENS MIGNON METAB OLIC PANEL glucose 107 mg/dL 65-99 high Fasti ng refer ence inter luanne For someo ne witho ut known diabe ericka, a gluco se value betwe en 100 and 125 mg/dL is consi stent with predi abete s and shoul d be confi rmed with a follo w-up test. Not Available [address], [address], 09/06/2022 03:19:46 09/05/20 22 09/06/2022 COMPR EHENS MIGNON METAB OLIC PANEL urea nitrogen (BUN) 14 mg/dL 7-25 normal Not Available [address] [address] [place], [address], 09/06/2022 03:19:46 09/05/20 22 09/06/2022 COMPR EHENS MIGNON METAB OLIC PANEL creatinine 1.18 mg/dL 0.60-1 .29 normal Not Available [address] [address] [place], [address], 09/06/2022 03:19:46 09/05/20 22 09/06/2022 COMPR EHENS MIGNON METAB OLIC PANEL eGFR 79 mL/mi n/1.7 3m2 > or = 60 normal The eGFR is based on the CKD-E PI 2020 equat ion. To calcu late the new eGFR from a previ ous Creat inine or Cysta tin C resul t, go to https ://sea ceballos.sophia ray/oly yung s/ kdoqi /gfr% 5Fcal culat or Not Available [address] [address] [place], [address], 09/06/2022 03:19:46 09/05/20 22 09/06/2022 COMPR EHENS MIGNON METAB OLIC PANEL BUN/creatini ne ratio not applic able (calc ) 6-22 Not Available [address] [place], [address], 09/06/2022 03:19:46 09/05/20 22 09/06/2022 COMPR EHENS MIGNON METAB OLIC PANEL sodium 140 mmol/ L 135-14 6 normal Not Available [address] [address] [place], [address], 09/06/2022 03:19:46 09/05/20 22 09/06/2022 COMPR EHENS MIGNON METAB OLIC PANEL potassium 4.0 mmol/ L 3.5-5. 3 normal Not Available [facility] [place] [address] [address] [place], [address], 09/06/2022 03:19:46 09/05/20 22 09/06/2022 COMPR EHENS MIGNON METAB OLIC PANEL chloride 105 mmol/ L 98-110 normal Not Available [address], [address], 09/06/2022 03:19:46 09/05/20 22 09/06/2022 COMPR EHENS MIGNON METAB OLIC PANEL carbon dioxide 28 mmol/ L 20-32 normal Not Available [address], [address], 09/06/2022 03:19:46 09/05/20 22 09/06/2022 COMPR EHENS MIGN[facility] METAB OLIC PANEL calcium 9.3 mg/dL 8.6-10 .3 normal Not Available [address], [address], 09/06/2022 03:19:46 09/05/20 22 09/06/2022 COMPR EHENS MIGNON METAB OLIC PANEL protein, total 7.3 g/dL 6.1-8. 1 normal Not Available [address], [address], 09/06/2022 03:19:46 09/05/20 22 09/06/2022 COMPR EHENS MIGNON METAB OLIC PANEL albumin 4.7 g/dL 3.6-5. 1 normal Not Available [address], [address], 09/06/2022 03:19:46 09/05/20 22 09/06/2022 COMPR EHENS MIGNON METAB OLIC PANEL globulin 2.6 g/dL_ (calc ) 1.9-3. 7 normal Not Available [address], [address], 09/06/2022 03:19:46 09/05/20 22 09/06/2022 COMPR EHENS MIGN[facility] METAB OLIC PANEL albumin/glob ulin ratio 1.8 (calc ) 1.0-2. 5 normal Not Available [address], [address], 09/06/2022 03:19:46 09/05/20 22 09/06/2022 COMPR EHENS MIGNON METAB OLIC PANEL bilirubin, total 0.8 mg/dL 0.2-1. 2 normal Not Available [address], [address], 09/06/2022 03:19:46 09/05/20 22 09/06/2022 COMPR EHENS MIGNON METAB OLIC PANEL alkaline phosphatase 50 U/L 36-130 normal Not Available [facility] [employer] [address], [address], 09/06/2022 03:19:46 09/05/20 22 09/06/2022 COMPR EHENS MIGNON METAB OLIC PANEL AST 24 U/L 10-40 normal Not Available [address] [address], [address], 09/06/2022 03:19:46 09/05/20 22 09/06/2022 COMPR EHENS MIGNON METAB OLIC PANEL ALT 32 U/L 9-46 normal Not Available [address], [address], 09/06/2022 03:19:46 09/05/20 22 09/06/2022 LIPID PANEL , STAND JAMIE cholesterol, total 155 mg/dL <200 normal Not Available [address], [address], 09/06/2022 03:19:46 09/05/20 22 09/06/2022 LIPID PANEL , STAND JAMIE HDL cholesterol 35 mg/dL > or = 40 low Not Available [address], [address], 09/06/2022 03:19:46 09/05/20 22 09/06/2022 LIPID PANEL , STAND JAMIE triglyceride s 257 mg/dL <150 high If a non-f astin g speci men was colle cted, consi melissa repea t trigl yceri de testi ng on a fasti ng speci men if clini hitesh indic ated. Shawn mehta et al. J. of Clin. Lipid ol. 2015; 9:129 -169. Not Available [facility] [id number] [place] [address], [address], 09/06/2022 03:19:46 09/05/20 22 09/06/2022 LIPID PANEL , STAND JAMIE LDL-choleste rol 86 mg/dL _(maai c) normal Refer ence range : <100 Josh able range <100 mg/dL for prima ry preve ntion ; <70 mg/dL for patie nts with CHD or diabe tic patie nts with > or = 2 CHD risk facto rs. LDL-C is now calcu lated using the Lina n-Hop kins calcu latchong n, which is a valid ated novel metho d provi ding rina r accur acy than the Fried cayden equat ion in the estim ation of LDL-C . Lina owen SS et al. ALYSSIA. 2013; 310(1 9): 2061- 2068 (http ://ed ucati on.Qu moniqueGOBA. com/f aq/FA Q164) Not Available [facility] [address] [place], [address], 09/06/2022 03:19:46 09/05/20 22 09/06/2022 LIPID PANEL , STAND JAMIE chol/HDLC ratio 4.4 (calc ) <5.0 normal Not Available [facility] [address] [place], [address], 09/06/2022 03:19:46 09/05/20 22 09/06/2022 LIPID PANEL , STAND JAMIE non HDL cholesterol 120 mg/dL _(maia c) <130 normal For patie nts with diabe ericka plus 1 major ASCVD risk facto r, treat ing to a non-H DL-C goal of <100 mg/dL (LDL- C of <70 mg/dL ) is krishna sparks n. Not Available [facility] [address], [place], [address], 09/06/2022 03:19:46 10/02/19 23 10/01/2022 stres s echoc ardio gram No observ ation record ed. [id number] [facility] [address], [place], [address], 11/13/2022 00:29:04 Result Notes None recorded. Problems Name Problem SNOMED Code Status Onset Date Resolution Date Notes Provider Name and Address Organization Details Recorded Time Tobacco user 868925531 Active 2021 Not Available [facility] 3 02:05:30 Non-alcoholic fatty liver 809987341 Active 2017 Not Available [facility] 3 02:05:30 Myocardial infarction 70606079 Active 2017 Not Available [facility] 3 02:05:30 Hypertriglyce ridemia 156419390 Active 2021 Not Available [facility] 3 02:05:30 Type 2 diabetes mellitus without complication 513802416 Active 2021 Not Available [facility] 3 02:05:30 Vitamin D deficiency 96359892 Active 2020 Not Available [facility] 3 02:05:30 Dyslipidemia 614495811 Active Not Available [facility] 3 02:05:30 Migraine 98281416 Active 2021 Not Available [facility] 3 02:05:30 Hypertensive disorder 81281754 Active 2017 Not Available [facility] 3 02:05:30 History of myocardial infarction 796514427 Active 2020 Not Available [facility] 3 02:05:30 Ingrowing toenail 443112486 Active 2021 Not Available [facility] 3 02:05:30 Hypothyroidis m 59726099 Active 2020 Not Available Replaced by [facility] 3 02:05:31 Uncontrolled type 2 diabetes mellitus 943947184 Active 2021 Not Available [facility] 3 02:05:31 Hyperlipidemi a 97626863 Active 2020 Not Available [facility] 3 02:05:31 Diabetes mellitus 45411908 Active 2020 Not Available [facility] 3 02:05:31 Sleep apnea 45780798 Active 2020 Not Available Replaced by [facility] 3 02:05:31 Pain in limb 10644789 Active Not Available Replaced by [facility] 3 02:05:31 Type 2 diabetes mellitus 52334650 Active 2022 Not Available Replaced by [facility] 3 02:05:31 Gastroesophag eal reflux disease 612305964 Active 2022 Not Available Replaced by [facility] 3 02:05:30 Insomnia 763582623 Active 2022 Not Available Replaced by [facility] 3 02:05:30 Mood swings 04366634 Active 2022 Not Available Replaced by [facility] 3 02:05:30 Problem Notes None recorded. Procedures Surgical History Date Name Laterality Status Provider Name and Address Organization Details Recorded Time Neck Surgeries completed Not Available [facility] 11/13/2022 00:26:05 Appendectomy completed Not Available [facility] 11/13/2022 00:26:05 Vasectomy completed Not Available Replaced by [facility] 0 11/13/2022 00:26:05 fit complete upper and lower dentures completed Not Available Replaced by [facility] 11/13/2022 00:26:05 Imaging Results None recorded. Procedure Notes None recorded. Medical Equipment None Reported. Allergies No known drug allergies Medications Name Sig Start Date Stop Date Status Note LastModified by Organization Details LastModified Time losartan 50 mg tablet 12/23 completed Not Available Not Available Not Available cyclobenz aprine 10 mg tablet TAKE 1 TABLET BY MOUTH THREE TIMES DAILY NEEDED 09/04 completed Not Available Not Available Not Available atorvasta tin 80 mg tablet Take 1 tablet every day by oral route. 10/03 completed Not Available Not Available Not Available prednison e 10 mg tablet 03/25 completed Not Available Not Available Not Available atorvasta tin 20 mg tablet 09/05 completed Not Available Not Available Not Available cetirizin e 10 mg tablet Take 1 tablet every day by oral route for 90 days. 06/26 completed Not Available Not Available Not Available azithromy isamar 250 mg tablet TK TWO TS AT ONCE LUPIS THEN TK ONE T - D FOR FOUR DAYS 03/25 completed Not Available Not Available Not Available ibuprofen 800 mg tablet 03/25 completed Not Available Not Available Not Available alprazola m 1 mg tablet 03/25 completed Not Available Not Available Not Available metoprolo l tartrate 100 mg tablet Take 1.5 tablets twice a day by oral route for 90 days. 12/23 completed Not Available Not Available Not Available hydrocodo ne 5 mg-acetam inophen 325 mg tablet 03/25 completed Not Available Not Available Not Available lisinopri l 20 mg tablet Take 1 po daily 03/25 completed Not Available Not Available Not Available prednison e 20 mg tablet TAKE 2 TABLETS BY MOUTH DAILY X5 DAYS 09/04 completed Not Available Not Available Not Available rizatript an 10 mg tablet 03/25 completed Not Available Not Available Not Available penicilli n V potassium 500 mg tablet 03/25 completed Not Available Not Available Not Available hydrocodo ne 10 mg-acetam inophen 325 mg tablet 03/25 completed Not Available Not Available Not Available tramadol 50 mg tablet TAKE 1 TABLET BY MOUTH TWICE DAILY FOR 7 DAYS NEEDED FOR SEVERE PAIN 09/04 completed Not Available Not Available Not Available meloxicam 7.5 mg tablet 03/25 completed Not Available Not Available Not Available alprazola m 0.5 mg tablet TAKE 1 TABLET BY MOUTH EVERY DAY 12/23 completed Not Available Not Available Not Available potassium chloride 20 mEq oral packet Take 1 packet 4 times a day by oral route. 09/04 completed Not Available Not Available Not Available amoxicill in 875 mg tablet 03/25 completed Not Available Not Available Not Available aspirin 325 mg tablet,de layed release 03/25 completed Not Available Not Available Not Available oxycodone -acetamin ophen 10 mg-325 mg tablet 03/25 completed Not Available Not Available Not Available rizatript an 10 mg disintegr ating tablet Take 1 po at onset of headache active Not Available Not Available No t Available hydrocodo ne 7.5 mg-acetam inophen 325 mg tablet 03/25 completed Not Available Not Available Not Available cephalexi n 500 mg capsule TAKE ONE CAPSULE BY MOUTH THREE TIMES DAILY FOR 10 DAYS 03/25 completed Not Available Not Available Not Available pantopraz ole 40 mg tablet,de layed release Take 1 tablet every day by oral route for 90 days. active Not Available Not Available No t Available erythromy isamar 5 mg/gram (0.5 %) eye ointment 12/23 completed Not Available Not Available Not Available levothyro xine 125 mcg tablet Take 1 tablet every day by oral route for 30 days. 11/19 completed Not Available Not Available Not Available prednison e 50 mg tablet 03/25 completed Not Available Not Available Not Available levothyro xine 150 mcg tablet TAKE 1 TABLET DAILY active Not Available Not Available No t Available metoprolo l tartrate 50 mg tablet 03/25 completed Not Available Not Available Not Available Synthroid 75 mcg tablet Take 1 tablet every day by oral route for 30 days. 03/25 completed Not Available Not Available Not Available Synthroid 50 mcg tablet 11/18 completed Not Available Not Available Not Available triamtere ne 37.5 mg-hydroc hlorothia zide 25 mg tablet 03/25 completed Not Available Not Available Not Available hydrochlo rothiazid e 25 mg tablet TAKE 1 TABLET BY MOUTH EVERY DAY active Not Available Not Available No t Available furosemid e 20 mg tablet Take 1 tablet every day by oral route. 09/04 completed Not Available Not Available Not Available Synthroid 112 mcg tablet Take 1 tablet every day by oral route for 90 days. 12/23 completed Not Available Not Available Not Available metoprolo l succinate ER 25 mg tablet,ex tended release 24 hr TK 1 T PO D 03/25 completed Not Available Not Available Not Available ergocalci ferol (vitamin D2) 1,250 mcg (50,000 unit) capsule TAKE 1 CAPSULE BY MOUTH EVERY WEEK 03/26 completed Not Available Not Available Not Available ibuprofen 600 mg tablet 03/25 completed Not Available Not Available Not Available oxycodone -acetamin ophen 7.5 mg-325 mg tablet TAKE 1 TABLET BY MOUTH EVERY 4 HOURS NEEDED 09/04 completed Not Available Not Available Not Available zolpidem 10 mg tablet TAKE 1 TABLET BY MOUTH EVERY DAY active Not Available Not Available No t Available methylpre dnisolone 4 mg tablets in a dose pack FOLLOW PACKAGE DIRECTIO NS 09/04 completed Not Available Not Available Not Available losartan 100 mg tablet Take 1 tablet every day by oral route. active Not Available Not Available No t Available metformin ER 500 mg tablet,ex tended release 24 hr TAKE ONE TABLET BY MOUTH once DAILY active Hold- Having low blood sugar of 50s in middle of the day as of 12/23/22. Not Available Not Available Not Available amoxicill in 875 mg-potass ium clavulana te 125 mg tablet TAKE 1 TABLET BY MOUTH TWICE DAILY 09/04 completed Not Available Not Available Not Available amoxicill in 500 mg-potass ium clavulana te 125 mg tablet TAKE 1 TABLET BY MOUTH TWICE DAILY FOR 10 DAYS 12/23 completed Not Available Not Available Not Available Synthroid 137 mcg tablet Take 1 tablet every day by oral route. 12/23 completed Not Available Not Available Not Available Novolog FlexPen U-100 Insulin aspart 100 unit/mL (3 mL) subcutane ous Inject 5 units if blood sugar > 150 prior to meals tid active Not Available Not Available No t Available rosuvasta tin 20 mg tablet TAKE 1 TABLET BY MOUTH EVERY DAY AT BEDTIME 12/23 completed Not Available Not Available Not Available rosuvasta tin 40 mg tablet Take 1 tablet every day by oral route at bedtime for 30 days. active Not Available Not Available No t Available metoprolo l tartrate 25 mg tablet 03/25 completed Not Available Not Available Not Available eszopiclo ne 2 mg tablet Take 1 tablet every day by oral route. 12/23 completed Not Available Not Available Not Available pregabali n 75 mg capsule TAKE 1 CAPSULE BY MOUTH EVERY 12 HOURS FOR 15 DAYS 09/04 completed Not Available Not Available Not Available ProAir HFA 90 mcg/actua tion aerosol inhaler INHALE 2 PUFFS Q 4 H PRN active Not Available Not Available No t Available metformin ER 500 mg 24 hr tablet,ex tended release (gastric retention ) Take 1 tablet every day by oral route for 90 days. 06/26 completed Not Available Not Available Not Available hydrochlo rothiazid e 12.5 mg tablet Take 1 tablet every day by oral route. 09/04 completed Not Available Not Available Not Available Humalog KwikPen (U-100) Insulin 100 unit/mL subcutane ous INJECT 5 UNITS UNDER THE SKIN THREE TIMES DAILY PRIOR TO MEALS IF BLOOD SUGAR IS GREATER THAN 150 10/03 completed Not Available Not Available Not Available Vicodin ES 7.5 mg-300 mg tablet 03/25 completed Not Available Not Available Not Available icosapent ethyl 1 gram capsule Take 2 capsules twice a day by oral route. active Not Available Not Available No t Available Belsomra 20 mg tablet Take by oral route for 30 days. 09/10 completed changed to eszopicl one due to formular y. Not Available Not Available Not Available Belbuca [address] FILM TO THE GUM AND DISSOLVE VIA BUCCAL ROUTE EVERY 12 HOURS 09/04 completed Not Available Not Available Not Available Basaglar KwikPen U-100 Insulin 100 unit/mL (3 mL) subcutane ous Inject 10 units subcutan eous in evening daily 11/11 completed HOLD Not Available Not Available Not Available BD Malissa 2nd Gen Pen Needle 32 gauge x 5/32 USE DIRECTED WITH NOVOLOG AND BASAGLAR 12/30 completed Not Available Not Available Not Available FreeStyle [place] 2 Sensor kit DIRECTED active Not Available Not Available No t Available Flowflex COVID-19 Antigen Home Test kit 12/23 completed Not Available Not Available Not Available Vitals Date Recorded Body mass index (BMI) Body height Oxygen saturation Oxygen saturation in Arterial blood by Pulse oximetry Heart rate Body temperature Body weight Systolic blood pressure Diastolic blood pressure Provider Name and Address Organization Details Last Updated DateTime 2 32.3 kg/m2 177.8 cm 99 % 99 % 69 /min 96.2 [degF] 320632. 28 g 134 mm[Hg] 86 mm[Hg] Not Available [facility] 3 00:26:51 Date Recorded Body height Body mass index (BMI) Body weight Body temperature Heart rate Respiratory rate Oxygen saturation Oxygen saturation in Arterial blood by Pulse oximetry Systolic blood pressure Diastolic blood pressure Provider Name and Address Organization Details Last Updated DateTime 3 177.8 cm 33.5 kg/m2 879513. 82 g 97.7 [degF] 82 /min 82 /min 96 % 96 % 180 mm[Hg] 100 mm[Hg] Kaela Payton RN [place] [facility] 3 16:49:09 Date Recorded Body mass index (BMI) Body height Oxygen saturation Oxygen saturation in Arterial blood by Pulse oximetry Heart rate Body temperature Body weight Systolic blood pressure Diastolic blood pressure Provider Name and Address Organization Details Last Updated DateTime 2 32.4 kg/m2 177.8 cm 97 % 97 % 69 /min 96.3 [degF] 797405. 88 g 140 mm[Hg] 84 mm[Hg] Not Available [facility] 3 00:26:51 Date Recorded Body mass index (BMI) Body height Oxygen saturation Oxygen saturation in Arterial blood by Pulse oximetry Heart rate Body temperature Body weight Systolic blood pressure Diastolic blood pressure Provider Name and Address Organization Details Last Updated DateTime 2 33.7 kg/m2 177.8 cm 98 % 98 % 79 /min 97.7 [degF] 689054. 21 g 142 mm[Hg] 90 mm[Hg] Not Available [facility] 3 00:26:51 Date Recorded Body mass index (BMI) Body height Oxygen saturation Oxygen saturation in Arterial blood by Pulse oximetry Heart rate Respiratory rate Body temperature Body weight Systolic blood pressure Diastolic blood pressure Provider Name and Address Organization Details Last Updated DateTime 2 34 kg/m2 177.8 cm 96 % 96 % 71 /min 16 /min 97.7 [degF] 807348. 39 g 134 mm[Hg] 86 mm[Hg] Not Available [facility] 3 00:26:51 Social History Question Answer Notes LastModified by Organizat ion Details LastModified Time Tobacco Smoking Status Current Every Day Smoker Not Available [facility] 11/13/2022 00:25:54 Do You Have An Advance Directive? No [id number] Information not available 11/13/2022 Is Blood Transfusion Acceptable In An Emergency? Yes Information not available 12/23/2022 What Is Your Level Of Caffeine Consumption? Moderate [id number] Information not available 11/13/2022 What Is Your Code Status? Full Code Information not available 12/23/2022 In The 14 Days Before Symptom Onset, Have You Had Close Contact With A Laboratory-confi rmed COVID-19 While That Case Was Ill? No [id number] Information not available 11/13/2022 In The 14 Days Before Symptom Onset, Have You Had Close Contact With A Person Who Is Under Investigation For COVID-19 While That Person Was Ill? No [id number] Information not available 11/13/2022 What Type Of Diet Are You Following? REGULAR [id number] [id number] Information not available 11/13/2022 What Is The Highest Grade Or Level Of School You Have Completed Or The Highest Degree You Have Received? [id number] [id number].87481 10060 Information not available 11/13/2022 Have There Been Any Changes To Your Family Or Social Situation? No [id number].[id number] Information not available 11/13/2022 Do You Use Insect Repellent Routinely? Yes [id number] Information not available 11/13/2022 Where Do You Live? [facility] [id number].[id number] Information not available 11/13/2022 Do You Have A Medical Power Of Ortho Assistant? No Information not available 12/23/2022 Do You Have Any Pets? Yes Dogs MIGRATION.[id number] Information not available 11/13/2022 What Is Your Relationship Status? MIGRATION.99150 [id number] Information not available 11/13/2022 Do You Use Your Seat Belt Or Car Seat Routinely? Yes Information not available 12/23/2022 Do You Have Smoke And Carbon Monoxide Detectors In Your Home? Yes [id number].[id number] Information not available 11/13/2022 Are You Passively Exposed To Smoke? Yes MIGRATION.24165 [id number] Information not available 11/13/2022 Are There Any Smokers In Your House? Yes MIGRATION.49053 [id number] Information not available 11/13/2022 How Much Tobacco Do You Smoke? 0.5 PPD MIGRATION.50987 48970 Information not available 11/13/2022 Do You Participate In Social Media? No Information not available 12/23/2022 Do You Use Sunscreen Routinely? Yes MIGRATION.25381 [id number] Information not available 11/13/2022 Have You Recently Traveled Abroad? No [id number].05573 [id number] Information not available 11/13/2022 Sex: Male Functional Status Question Answer Note LastModified by Organizat ion Details LastModified Time Do you use any illicit or recreational drugs? No [id number] Information not available 11/13/2022 What is your level of alcohol consumption? 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 [id number] Information not available 11/13/2022 Family History Relationship Description Onset Age of this Age Resolved Age Notes LastModified by Organization Details LastModified Time Unspecified Relation Diabetes mellitus [id number] Not available 11/13/2022 00:26:06 Medical History Condition Response DIABETES, TYPE Y Immunizations Vaccine Type Date Status Note Provider Nam e and Address Organization Details Recorded Time Tdap 09/03/2022 completed Not Available [facility] 12/30/2022 02:05:31 Past Encounters Encounter ID Performer Location Encounter Start Date Encounter Closed Date Diagnosis/Indication Diagnosis SNOMED-CT Code Diagnosis ICD10 Code Diagnosis Note [id number] Steven Luu MD [facility] Joanie fairchild [address] [place] [address] 09/04/2021 00:00:00 09/04/2021 13:35:35 [id number] [facility] [place] [address] [place] [address] 09/26/2021 00:00:00 09/27/2021 09:31:08 [id number] Steven Luu MD [facility] rut [address] [place] [address] 10/03/2021 00:00:00 10/03/2021 16:33:21 [id number] [facility] [place] [address] [place] [address] 11/11/2021 00:00:00 11/11/2021 13:21:23 [id number] [facility] [address]le [address] [place] [address] 11/11/2021 00:00:00 11/11/2021 11:14:21 [id number] Steven Luu MD [facility] Family [facility] [address] [place] [address] 03/25/2022 00:00:00 03/25/2022 11:14:48 [id number] Steven Luu MD [facility] Family [facility] rut [facility] [address] [place] [address] 06/26/2022 00:00:00 06/26/2022 16:37:28 [id number] Demetrio Lindsey MD [address] [address] 09/03/2022 00:00:00 09/03/2022 18:24:15 [id number] Kaela Trinidad NP [facility] [address] [address] 12/23/2022 16:06:48 12/23/2022 17:35:42 Tobacco user 680412660 Z72.0 09/15 ppd. Cessation encouraged and recommende d. Non-alcoho lic fatty liver 305669892 K76.0 Trying to eat low fat options. Doesn't eat Fatty meals. Type 2 june betes mellitus without complication 612005089 E11.9 Metformin ER 500 mg po daily on hold. Having low sugars. If improved after being off the metformin, will not plan to restart. Vitamin D deficiency 347 97261 E55.9 Vit d good 03/2022 good. Pt eats dairy routinely. Hypertensive disorder 38 558508 I10 Seeing cardiology - Dr. Painter. Recent increase in losartan to 100 mg. BP 180/110, 150/100HCT Z 25 mg po daily.Losa rtan 100 mg po daily. Hypothyroidism 74642888 E03.9 TSh high, increase Levothyrox ine from 137 mcg to 150 mcg. Labs in 3 mo, February 2023.Synth roid 150 mcg po daily. Hyperlipidemia 54211581 E78.5 Rosuvastat in 40 mg po nightly. Sleep apnea 59894138 G47 .30 CPAP nightly. No fu scheduled. Will get new referral to sleep specialist per [place]. [facility]. Gastroesop hageal reflux disease 931685671 K21.9 Pantoprazo le 40 mg po daily. Diet mods. Migraine 72361181 G43.90 9 Rizatripta n 10 mg prn. Insomnia 971467150 G47.0 0 Zolpidem 10 mg po nightly. Mood swings 26730760 R45 .86 Short temper. Declines SSRI/SNRI. Referred to psych in september but patient did not set up appt. Health Concerns Section Related Observation LastModified by Organization Detai ls LastModified Time None Recorded Concern Status LastModified by Organization Details LastModified Time None Recorded Advance Directives Directive N: Payers Insurance Date Sequence Insurance Name Policy Number Policy Luciano Covered Member ID Luciano Member ID Guarantor Name 12/23/2022 1 [place] [id number] Rosendo Ley [id number] Rosendo Ley 01/07/2024 1 [place] [id number] Rosendo Ley [id number] Rosendo Ley Notes Date Note Type Note Provider Name and Address Organization Details Recorded Time 12/23/2022 text/html Here for follow up. Lipid- Low fat diet.Thyroid- labs done 11/18/22 and thyroid dose was increased.HTN- Seeing cardiology 150/[address] Painter increased dose of Losartan from 50 mg to 100 mg daily. No salt added to diet. Drinking Couple Dr. Bundy zero.DM- Had a low blood sugar 53 and sensor went off and was told it was low. [place] shaky. Metformin started after 11/18/22 labs. States no symptoms prior to being on metformin. Fasting 120-122.Vit d def- Vit d supplement not taken, labs were good in November 2022.Sleep apnea- CPAP not sleeping well. Not sure cause. Hard time shutting down.tobacco use- 1/2 ppd same as before.NAFL-Low fat diet generally.Headach e- still getting every few days. Did see manuscripts curator- did get injections into plantar fascia. Returns in a few weeks. Injections did help. no diabetic neuropathy. Has short temper. Kaela Trinidad, TYE [address] [facility], [facility] [address], [place], [address], [place] - [facility] [employer] 12/23/2022 17:31:44
--- OUTSIDE RECORDS SUMMARY | 2025-02-27 14:35 | XMS_ITS | CONTINUITY OF CARE DOCUMENT ---
Author Name yanick jeyfadi Address Unknown Organization [facility] Address [address] [facility] [address] [place] [address] Phone [phone] Care Team Providers Care Summons Server Name Role Phone Roger Jacobo MD Unavailable KALYAN VELASCO Unavailable [phone] KALYAN VELASCO Unavailable [phone] PROBLEMS Condition Status Date Provider Notes Chest pain active Jace Charles Sleep apnea--on C-pap active Roger Sullivan Diabetes mellitus active Roger Jacobo MD HYPERTENSION active Roger Jacobo MD Hyperlipidemia active Roger Jacobo MD Hyperlipidemia active Roger Jacobo MD Cardiology examination active Roger Jacobo MD ENCOUNTERS Date Type Provider Location Encounter Diag nosis 06/16 - 06/16 In-person encounter Office Visit Roger Jacobo MD [facility] 12/20 - 12/20 In-person encounter Office Visit Roger Jacobo MD [facility] 11/24 - 11/24 In-person encounter Office Visit Vernon Cunningham MD [facility] Chest pain 06/22 - 06/22 In-person encounter Office Visit Roger Jacobo MD [facility] 12/22 - 12/22 In-person encounter Office Visit Roger Jacobo MD [facility] 09/22 - 09/23 In-person encounter Office Visit Roger Jacobo MD [facility] Sleep apnea--on C-pap 09/12 - 09/12 In-person encounter Office Visit Roger Jacobo MD [facility] Cardiology examinationHyperlipidemiaHyperlipidemiaHYPERTENSIOND iabetes mellitus VITAL SIGNS Date Observation Value Provider Body Mass Index (Ratio) 31.71 kg/m2 Lisha Jacobo MD blood pressure, cuff size regular Dennis gonzalez [place] blood pressure, diastolic 85 mm[Hg] Ta lisa [place] blood pressure, systolic 119 mm[Hg] Tab rodrigo Pierce oxygen saturation, oximetry 97 % Pam [place] respiratory rate E&M 16 /min Pam [place] pulse rate 91 /min Pam Pierce weight E&M 221 [lb_av] Pam Pierce height E&M 70 [in_i] Pam Pierce Body Mass Index (Ratio) 33.86 kg/m2 Lisha Jacobo MD weight E&M 236 [lb_av] [facility] pulse rate 90 /min [facility] blood pressure, cuff size regular Claudia [facility] blood pressure, diastolic 99 mm[Hg] [facility] blood pressure, systolic 147 mm[Hg] [facility] oxygen saturation, oximetry 97 % [facility] respiratory rate E&M 16 /min Lucila cash height E&M 70 [in_i] [facility] Body Mass Index (Ratio) 32.71 kg/m2 Willem Charles blood pressure, cuff size regular Claudia isidro [place] blood pressure, diastolic 78 mm[Hg] [facility] blood pressure, systolic 134 mm[Hg] [facility] pulse rate 82 /min Lucila [place] oxygen saturation, oximetry 96 % Lucila [place] respiratory rate E&M 14 /min Lucila zarcor weight E&M 228 [lb_av] Lucila [place] height E&M 70 [in_i] Lucila [place] Body Mass Index (Ratio) 33.72 kg/m2 Lisha Jacobo MD blood pressure, cuff size regular Ja [facility] blood pressure, diastolic 107 mm[Hg] Andrew [facility] blood pressure, systolic 154 mm[Hg] Lizeth ozuna pulse rate 94 /min Krishna oxygen saturation, oximetry 96 % Krishna respiratory rate E&M 12 /min Krishna weight E&M 235 [lb_av] Krishna y height E&M 70 [in_i] Krishna [facility] y Body Mass Index (Ratio) 33.49 kg/m2 Lisha Jacobo MD blood pressure, diastolic -1 mm[Hg] Nathalia rosenbaumLogyesenia blood pressure, systolic 147 mm[Hg] Lubna Shermanyesenia blood pressure, diastolic 105 mm[Hg] trevor Marilyn blood pressure, systolic 147 mm[Hg] She brenda Sanders pulse rate 91 /min Caridad Sanders respiratory rate E&M 18 /min Caridad Sanders oxygen saturation, oximetry 95 % Caridad Sanders weight E&M 233.4 [lb_av] Caridad Sanders height E&M 70 [in_i] Caridad Sanders blood pressure, diastolic 109 mm[Hg] Nathalia nkLogyesenia blood pressure, systolic 157 mm[Hg] [facility] Body Mass Index (Ratio) 34.72 kg/m2 Lisha Jacobo MD blood pressure, diastolic 109 mm[Hg] Mecca fuentes Niles blood pressure, systolic 157 mm[Hg] Tomer verduzco Niles oxygen saturation, oximetry 97 % Arlen Mckinney pulse rate 89 /min Arlen sullivan weight E&M 242 [lb_av] Arlen sullivan respiratory rate E&M 16 /min Kary barrios [place]iles blood pressure, cuff size large Mecca fuentes Niles height E&M 70 [in_i] Arlen sullivan Body Mass Index (Ratio) 32.85 kg/m2 Lisha Jacobo MD blood pressure, diastolic 80 mm[Hg] Li nkLogic blood pressure, systolic 110 mm[Hg] Lubna kLogic blood pressure, cuff size regular Sa ra Maria blood pressure, diastolic 80 mm[Hg] Sa ra Maria blood pressure, systolic 110 mm[Hg] Seb a Maria oxygen saturation, oximetry 98 % Rachael Maria pulse rate 78 /min Rachael Maria respiratory rate E&M 19 /min Rachael Si ms weight E&M 229 [lb_av] Rachael Maria height E&M 70 [in_i] Rachael Maria ALLERGIES Allergy Name Onset Date Reaction Criticality Status LIDOCAINE High Criticality active HISTORY OF MEDICATION USE Medication Status Instructions Dates Provider Indications Com jaswant Stanleyunsergei 5 mg/0.5 mL pen injector active 1 pen injector subcutaneously once a week Pam [place]field nifedipine 30 mg tablet extended release active take one tablet by mouth once daily Pam [place]field chlorthalidone 25 mg tablet completed Take 1 tablet by mouth once a day - Pam [place]field omeprazole 20 mg capsule,delayed release(DR/EC) active Take 1 capsule by mouth twice a day Pam Mayfield erythromycin 5 mg/gram (0.5 %) ointment completed - Pam Mayfield rizatriptan 10 mg tablet,disintegrating completed - Pam Mayfield FreeStyle [place] 14 Day Sensor kit active Arlen Mckinney FreeStyle [place] 2 Sensor kit completed - Pam [place] rosuvastatin 40 mg tablet active TAKE 1 TABLET BY MOUTH EVERY DAY Pam Mayfield hydrochlorothiazide 25 mg tablet completed - Roger Jacobo MD alprazolam 0.5 mg tablet active Pam [place] pantoprazole 40 mg tablet,delayed release (DR/EC) completed - Roger Jacobo MD metoprolol tartrate 100 mg tablet completed - Roger Jacobo MD ergocalciferol (vitamin D2) 1,250 mcg (50,000 unit) capsule completed - Pam Mayfield levothyroxine 150 mcg tablet active Take 1 tablet by mouth once a day Pam [place] SOCIAL HISTORY Date Observation Value Provider drug use no [facility] alcohol use, average drinks per day social [facility] alcohol use yes [facility] smoking/tobacco cess ation, patient education and counseling yes [facility] smoking, year quit 2023 [facility] smoking history, total pack/day 1 pkg a d ay [facility] cigarette use yes [facility] smoking status Former smoker [facility] social history E&M S moking History: Ruperto hermosillo currently smokes every day. Ruperto hermosillo has been counseled to quit. Roger Jacobo MD smoking/tobacco cess ation, patient education and counseling yes Roger Jacobo MD smoking status Current every day smoker U [place] Jacobo MD social history E&M S moking History: Ruperto hermosillo currently smokes every day. Ruperto hermosillo has been counseled to quit. Roger Jacobo MD social history reviewed E&M revi ewed - no changes required Roger Jacobo MD smoking/tobacco cess ation, patient education and counseling yes Roger Jacobo MD smoking history, total pack/day 1 pkg a d ay Caridad Sanders cigarette use yes Caridad Sanders smoking status Current every day smoker S norma Sanders social history E&M S moking History: Ruperto hermosillo is a former smoker. Roger Jacobo MD social history reviewed E&M revi ewed - no changes required Roger Jacobo MD smoking, year quit 2020 Arlen Mckinney cigarette use yes Arlen Narayan nd smoking status Former smoker Arlen Rosalia carrillo number of grandchildren Roger Jacobo MD [place] Jacobo MD drug use no Roger Jacobo MD alcohol use, average drinks per day social Roger Jacobo MD alcohol use yes Roger Jacobo MD social history E&M S moking History: Ruperto hermosillo is a former smoker. Roger Jacobo MD social history reviewed E&M revi ewed - no changes required Roger Jacobo MD smoking, year quit 2020 Rachael Maria cigarette use yes Rachael Maria smoking status Former smoker Rachael Maria INSURANCE PROVIDERS Payer name Policy type / Coverage type [employer] party ID [facility] [id number] 1 ADVANCE DIRECTIVES Name Date DISCUSSED - NO DECISION MADE TREATMENT PLAN Date Name Performer [id number],C,T he patient is on a statin His updated medication list for this problem includes: Rosuvastatin 40 Mg Tablet (Rosuvastatin) Roger Jacobo MD [id number],C,H as been under lots of stress from work recently B P today: 154/107 P rior BP: 147/-1 (12/22/2022) His updated medication list for this problem includes: Losartan 100 Mg Tablet (Losartan) ..... Take 1 tablet by mouth once a day Hydrochlorothiazide 25 Mg Tablet (Hydrochlorothiazide) Roger Jacobo MD [id number],C,w ell controlled H as had several episodes of hypoglycemia, is now on no medicaiton D iet controlled Roger Jacobo MD [id number],S,Continues to use cpap Roger Jacobo MD [id number],S, H is updated medication list for this problem includes: Rosuvastatin 40 Mg Tablet (Rosuvastatin) Roger Jacobo MD [id number],S,W ill INCREASE losartan to 100mg. It appears that he had his xanax discontinued and it appears that this may be contributing to the high BP. B P today: 147/105 P rior BP: 157/109 (09/22/2022) His updated medication list for this problem includes: Losartan 100 Mg Tablet (Losartan) ..... Take 1 tablet by mouth once a day Hydrochlorothiazide 25 Mg Tablet (Hydrochlorothiazide) Roger Jacobo MD [id number],S, Roger Jacobo MD [id number],S, H is updated medication list for this problem includes: Rosuvastatin 40 Mg Tablet (Rosuvastatin) Roger Jacobo MD [id number],S,P er PCP. Will check a BMP His updated medication list for this problem includes: Losartan 50 Mg Tablet (Losartan) ..... Take 1 tablet by mouth once a day Roger Jacobo MD [id number],S,R epeat BP today: 152/90 Will STOP metoprolol and START losartan 50mg once daily BP today: 157/109 P rior BP: 110/80 (09/12/2021) The following medications were removed from the medication list: Metoprolol Tartrate 100 Mg Tablet (Metoprolol tartrate) His updated medication list for this problem includes: Losartan 50 Mg Tablet (Losartan) ..... Take 1 tablet by mouth once a day Hydrochlorothiazide 25 Mg Tablet (Hydrochlorothiazide) Roger Jacobo MD [id number],N,u nder controllll per PCP and well monitored through device. Roger Jacobo MD [id number],B,U nder controlled as long as it stays under 17. O n medication to control it. Roger Jacobo MD [id number],N, B P today: 110/80 Roger Jacobo MD Cardiology:Continue GLP-1 agonist T his visit has been a part of the consistent, comprehensive, and ongoing management of the chronic medical condition(s) listed above for the patient. Roger Jacobo MD Cardiology:denies of cp Roger galeas MD Cardiology: H is updated medication list for this problem includes: Rosuvastatin 40 Mg Tablet (Rosuvastatin) ..... Take 1 tablet by mouth every day Roger Jacobo MD Cardiology:The karel nt is using CPAP on a regular basis. The patient has been benefiting from therapy and should continue use. Roger Jacobo MD Cardiology:improved with weight loss c ontinue cpap and weight loss The following medications were removed from the medication list: Chlorthalidone 25 Mg Tablet (Chlorthalidone) ..... Take 1 tablet by mouth once a day His updated medication list for this problem includes: Nifedipine 30 Mg Tablet Extended Release (Nifedipine) ..... Take one tablet by mouth once daily BP today: 119/85 P rior BP: 147/99 (12/21/2023) Roger Jacobo MD Cardiology: H is updated medication list for this problem includes: Rosuvastatin 40 Mg Tablet (Rosuvastatin) Roger Jacobo MD Cardiology:The patie nt is using CPAP on a regular basis. The patient has been benefiting from therapy and should continue use. Roger Jacobo MD Cardiology: H is updated medication list for this problem includes: Losartan 100 Mg Tablet (Losartan) ..... Take 1 tablet by mouth once a day Roger Jacobo MD Cardiology:Continues to have occasional chest tightness C ath and echo normal E KG today unchanged Roger Jacobo MD Cardiology:Will swit ch from HCTZ to Chlorthalidone 25mg to better BP control BP today: 147/99 P rior BP: 134/78 (11/25/2023) The following medications were removed from the medication list: Hydrochlorothiazide 25 Mg Tablet (Hydrochlorothiazide) His updated medication list for this problem includes: Chlorthalidone 25 Mg Tablet (Chlorthalidone) ..... Take 1 tablet by mouth once a day Losartan 100 Mg Tablet (Losartan) ..... Take 1 tablet by mouth once a day Roger Jacobo MD Cardiology:on statin H is updated medication list for this problem includes: Rosuvastatin 40 Mg Tablet (Rosuvastatin) Jace Charles Cardiology: H is updated medication list for this problem includes: Losartan 100 Mg Tablet (Losartan) ..... Take 1 tablet by mouth once a day Hydrochlorothiazide 25 Mg Tablet (Hydrochlorothiazide) BP today: 134/78 P rior BP: 154/107 (06/22/2023) Jace Charles Cardiology:The karel nt is using CPAP on a regular basis. The patient has been benefiting from therapy and should continue use. Jace Charles Cardiology:Patient n eeds w/u w /u negative in ER at [facility], went to ER to have testing done sooner Jace Charles Cardiology:The karel nt is on a statin His updated medication list for this problem includes: Rosuvastatin 40 Mg Tablet (Rosuvastatin) Roger Jacobo MD Cardiology:Has been under lots of stress from work recently B P today: 154/107 P rior BP: 147/-1 (12/22/2022) His updated medication list for this problem includes: Losartan 100 Mg Tablet (Losartan) ..... Take 1 tablet by mouth once a day Hydrochlorothiazide 25 Mg Tablet (Hydrochlorothiazide) Roger Jacobo MD Cardiology:well cont rolled H as had several episodes of hypoglycemia, is now on no medicaiton D iet controlled Roger Jacobo MD Cardiology:Continues to use cpap Roger Jacobo MD Cardiology: H is updated medication list for this problem includes: Rosuvastatin 40 Mg Tablet (Rosuvastatin) Roger Jacobo MD Cardiology:Will INCR EASE losartan to 100mg. It appears that he had his xanax discontinued and it appears that this may be contributing to the high BP. B P today: 147/105 P rior BP: 157/109 (09/22/2022) His updated medication list for this problem includes: Losartan 100 Mg Tablet (Losartan) ..... Take 1 tablet by mouth once a day Hydrochlorothiazide 25 Mg Tablet (Hydrochlorothiazide) Roger Jacobo MD Cardiology Roger Jacobo MD Cardiology: H is updated medication list for this problem includes: Rosuvastatin 40 Mg Tablet (Rosuvastatin) Roger Jacobo MD Cardiology:Per PCP. Will check a BMP His updated medication list for this problem includes: Losartan 50 Mg Tablet (Losartan) ..... Take 1 tablet by mouth once a day Roger Jacobo MD Cardiology:Repeat BP today: 152/90 Will STOP metoprolol and START losartan 50mg once daily BP today: 157/109 P rior BP: 110/80 (09/12/2021) The following medications were removed from the medication list: Metoprolol Tartrate 100 Mg Tablet (Metoprolol tartrate) His updated medication list for this problem includes: Losartan 50 Mg Tablet (Losartan) ..... Take 1 tablet by mouth once a day Hydrochlorothiazide 25 Mg Tablet (Hydrochlorothiazide) Roger Jacobo MD Cardiology:under con tiny per PCP and well monitored through device. Roger Jacobo MD Cardiology:Under con trolled as long as it stays under 17. O n medication to control it. Roger Jacobo MD Cardiology: B P today: 110/80 Roger Jacobo MD Date Name CT Chest with contra st EKG Stress Regadenoson Complete Echo BASIC METABOLIC PANE L W/EGFR Complete Echo HISTORY OF PROCEDURES Procedure Date Procedure Name Provider Procedure Notes S tatus Complex e/m visit add on Roger Jacobo MD completed EKG Roger Jacobo MD completed EKG Roger Jacobo MD completed EKG Roger Jacobo MD completed
--- OUTSIDE RECORDS SUMMARY | 2025-02-27 14:35 | XMS_ITS | Encounter Summary ---
Author Organization [facility] Address [address] [address] Care Team Providers Care Account Maintenance Representative Name Role Phone Jus Balderas MD Primary Care Provi melissa Felice Lindsey MD Primary Care Provider [phone] Jus Balderas MD Primary Care Provi melissa Felice Lindsey MD Primary Care Provider [phone] Kenneth Aviles MD Primary Care Provider [phone] Andree Carson NP Primary Care Provider [phone] Encounter Details Date Type Department Care Team (Latest Contact Info) Description 10/31/2016 Orders Only [facility] Cardiology ProviderAllen MD [address] [place] [address] Social History Tobacco Use Types Packs/Day Years Used Date Smoking Tobacco: Never Assessed Alcohol Use Standard Drinks/Week Comments Yes 0 (1 standard drink = 0.6 oz pur e alcohol) Sex and Gender Information Value Date Recorded Sex Assigned at Not on file Legal Sex Male 11:26 AM 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 us Historical Provider CV CARDIAC SERVICES PROCE DURES Final Result * CARDIOLOGY REPORT (10/31/2016) Anatomical Region Laterality Modality Other Narrative 10/31/2016 Ordered by an unspecified provider. us Historical Provider CV CARDIAC SERVICES PROCE DURES Final Result documented in this encounter Visit [...] COVID: Suspected 10/18/2024 10/18/2024 10/18/2024 7:23 PM ANESTHESIOLOGY CRNA documented as of this encounter Care Teams Account Maintenance Representative Relationship Specialty Start Date End Date Jus Balderas MD [address] [place] [id number] PCP - General 12/12/16 05/11/17 Felice Lindsey MD [address] [place] [address] PCP - General 11/14/16 12/11/16 Jus Balderas MD [address] [place] [address] PCP - General 07/09/12 11/13/16 Felice Lindsey MD [facility] [employer] [facility] [place] [address] PCP - General 05/12/17 04/28/23 Kenneth Aviles MD [address] [place] [address] [place] [address] PCP - General Family Medicine 04/29/23 10/17/24 Andree Carson NP [address] [place] [id number] PCP - General Nurse Practitioner 10/18/24 documented as of this encounter
--- OUTSIDE RECORDS SUMMARY | 2025-02-27 14:35 | XMS_ITS | Clinical Summary ---
Author Organization [facility] Address [address] [place] [phone] Phone Care Team Providers Care Upholstery Cleaner Name Role Phone Provider, None Primary Care Provider Unavailabl e Allergies No known active allergies Medications pantoprazole (PROTONIX) 40 MG Tablet Delayed Response Take 1 Tab by mouth daily. 90 Tab 3 9 Active Cholecalciferol (VITAMIN D PO) Take by mouth. Active melatonin 3 MG Tablet Take 3 mg by mouth nightly. Active NUCYNTA 50 MG Tablet 0 9 Active lisinopril-hydro CHLOROthiazide (PRINZIDE, ZESTORETIC) 20-12.5 MG TabletIndication s:Essential hypertension Take 2 Tabs by mouth daily. 180 Tab 3 9 Active levothyroxine (SYNTHROID) 100 MCG TabletIndication s:David's disease TAKE 1 TABLET DAILY 90 Tab 2 9 Active naproxen (NAPROSYN) 500 MG TabletIndication s:Plantar fasciitis TAKE 1 TABLET TWICE A DAY WITH MEALS NEEDED FOR MODERATE PAIN 180 Tab 2 9 Active furosemide (LASIX) 20 MG Tablet TAKE 1 TABLET DAILY 90 Tab 1 0 Active Rizatriptan Benzoate 10 MG Tablet Take 1 Tab by mouth as needed for Headaches. May repeat in 2 hours in needed 10 Tab 0 Active metoprolol tartrate (LOPRESSOR) 50 MG TabletIndication s:Essential hypertension Take 1 Tab by mouth 2 times daily. 180 Tab 3 0 Active potassium chloride CR (KLORCON) 10 MEQ Tablet Controlled Release Take 1 Tab by mouth daily. 30 Tab 0 Active atorvastatin (LIPITOR) 40 MG TabletIndication s:High cholesterol Take 1 Tab by mouth nightly. 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 High blood pressure 10/07/2018 High cholesterol 10/07/2018 Arthritis 10/07/2018 Trouble in sleeping 10/07/2018 Anxiety 10/07/2018 Pre-diabetes 10/07/2018 Overview (10/07/2018): Does not take any medication Family History Medical History Relation Name Comments No Known Problems Brother 1 No Known Problems Brother 2 No Known Problems Brother 3 No Known Problems Brother 4 Heart Attack Father Heart Disease Father Rheumatoid Arthritis Father No Known Problems Mother Congestive Heart Failure Paternal Grandfather Diabetes Paternal Grandfather Hypertension Paternal Grandfather Rheumatoid Arthritis Paternal Grandfather Diabetes Paternal Grandmother Heart Attack Paternal Grandmother Heart Disease Paternal Grandmother Heart Surgery Paternal Grandmother Hypertension Paternal Grandmother Relation Name Status Comments Brother 1 Alive Brother 2 Alive Brother 3 Alive Brother 4 Alive Father Alive Mother Paternal Grandfather Alive Paternal Grandmother Alive Social History Tobacco Use Types Packs/Day Years Used Date Smoking Tobacco: Former Smokeless Tobacco: Never Tobacco Cessation:Counseling Given: Yes Comments:08/2018 Alcohol Use Standard Drinks/Week Comments No 0 (1 standard drink = 0.6 oz pur e alcohol) PHQ-2 Answer Date Recorded PHQ-2 Score 0 05/18/2019 Sexually Active Control Partners Comments Yes Surgical Female Sex and Gender Information Value Date Recorded Sex Assigned at Not on file Legal Sex Male 11:10 PM CDT Gender Identity Not on file Sexual Orientation Not on file 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 Not on file Not on file Last Filed Vital Signs Vital Sign Reading Time Taken Comments Blood Pressure 127/93 09/03/2021 9:34 PM MIXER DRIVER Pulse 92 09/03/2021 9:34 PM MIXER DRIVER Temperature 36.3 C (97.4 F) 09/03/2021 5:04 PM MIXER DRIVER Respiratory Rate 18 09/03/2021 9:34 PM MIXER DRIVER Oxygen Saturation 98% 09/03/2021 9:34 PM MIXER DRIVER Inhaled Oxygen Concentration - - Weight 99.8 kg (220 lb) 09/03/2021 5:04 PM MIXER DRIVER Height 177.8 cm (5' 10) 09/03/2021 5:04 PM MIXER DRIVER Body Mass Index 31.57 09/03/2021 5:04 PM MIXER DRIVER Plan of Treatment Health Maintenance Due Date Last Done Comments Hepatitis C Virus (HCV) Screening 1980 Human Papillomavirus (HPV) Immunization (1 - Male 3-dose series) 1994 Hepatitis B Immunization (1 of 3 - 19+ 3-dose series) 1998 SARS-COV-2 Immunization (3 - 2023- season) 2024 12/22/2020, 12/01/2020 Cologuard 2024 Colonoscopy 2024 Colorectal Cancer Screening 2024 Immunochemical Fecal Occult Blood 2024 Influenza Immunization (Seas on Ended) 2025 Respiratory Syncytial Virus (RSV) Immunization (Adult) (1 - 1-dose 75+ series) 2054 DTaP/Tdap/Td Immunization Discontinued 09/14/2005 TdaP Immunization Completed 09/14/2005 Meningococcal Immunization (ACWY) Aged Out No longer eligible based on patient's age to complete this topic Pneumococcal Immunization Combined Aged Out No longer eligible based on patient's age to complete this topic Rotavirus Immunization Aged Out No lo nger eligible based on patient's age to complete this topic Insurance [facility] * Guarantor: [id number] STEEL Account Type Relation to Patient Date of Phone Billing Address Workers Comp Self 1980 [address] [place] [address] [facility] Care Teams Upholstery Cleaner Relationship Specialty Start Date End Date Provider, None [place] PCP - General 09/03/21
--- OUTSIDE RECORDS SUMMARY | 2025-02-27 14:35 | XMS_ITS | Clinical Summary ---
Author Organization [facility] [employer] Address [address] [place] [address] Care Team Providers Care Campaign Marketing Specialist Name Role Phone Unavailable Primary Care Provider Unavailabl e Source Comments [facility] [employer],non-owned Affiliates and Associated Physician Practices is amultiple site organization consisting of ambulatory clinics and hospital sitesin [place], [place], [place] and [place]. This disclosure is being madepursuant to the Care Everywhere program and may not contain all information available regarding this patient. Last updated 18.[facility] [employer] Allergies No known active allergies Medications * Be aware that medications may not be up to date on this document. Alwaysverify current medications with the patient. atorvastatin (LIPITOR) 20 MG tablet Take 20 mg by mouth at bedtime. Active VITAMIN D PO Active Pantoprazole Sodium (PROTONIX PO) Active lisinopril-hydr oCHLOROthiazide (PRINZIDE; ZESTORETIC) 20-12.5 MG tablet Take 1 tablet by mouth once daily Active Furosemide (LASIX PO) Active DULoxetine HCl (CYMBALTA PO) Active melatonin 5 MG capsule Take 5 mg by mouth at bedtime Active NAPROXEN PO Active METOPROLOL TARTRATE PO Active benzonatate (TESSALON) 200 MG capsuleIndicati ons:Upper airway cough syndrome Take 1 capsule by mouth 3 times daily as needed for Cough 30 capsule 9 Active Additional Information Patient not taking.Reported on 12/13/2020 potassium chloride ER (KLOR-CON) 10 MEQ tablet Take 10 mEq by mouth once daily 0 Active SYNTHROID 112 MCG tablet 1 Active BEL[place]CA [address] 1 FILM TO THE GUM AND DISSOLVE VIA BUCCAL ROUTE EVERY 12 HOURS 02/25/202 1 Active meloxicam (MOBIC) 15 MG tablet Take 15 mg by mouth once daily Active lisinopril (PRINIVIL; ZESTRIL) 20 MG tablet Take 20 mg by mouth once daily Active Family History Medical History Relation Name Comments Alcohol abuse Brother Drug Abuse Brother Other - Psychiatric Brother Arthritis - Rheumatoid Father CAD (Coronary Artery Disease) Father Cancer Father High Cholesterol Father Hypertension Father CAD (Coronary Artery Disease) Mother Drug Abuse Mother Other - Psychiatric Mother Relation Name Status Comments Brother Father Mother Social History Tobacco Use Types Packs/Day Years Used Date Smoking Tobacco: Former Cigarettes 0.2 16 Smokeless Tobacco: Never Alcohol Use Standard Drinks/Week Comments Not Currently 1.7 (1 standard drink = 0.6 oz p ure alcohol) AUDIT-C Answer Date Recorded Q1: How often do you have a drink containing alc ohol? 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 Not on file Not on file Last Filed Vital Signs Vital Sign Reading Time Taken Comments Blood Pressure 112/80 07/11/2019 4:46 PM CDT Pulse 110 07/11/2019 4:46 PM CDT Temperature 36.8 C (98.2 F) 07/11/2019 4:46 PM CDT Respiratory Rate 18 07/11/2019 4:46 PM CDT Oxygen Saturation 98% 07/11/2019 4:46 PM CDT Inhaled Oxygen Concentration - - Weight 104.3 kg (230 lb) 12/13/2020 8:03 AM CDT Height 177.8 cm (5' 10) 12/13/2020 8:03 AM CDT Body Mass Index 33 12/13/2020 8:03 AM CDT Plan of Treatment Health Maintenance Due Date Last Done Comments COLOGUARD (AGES 45-75) - COLON CA SCREENING 1979 COLON MONITORING 1979 COLONOSCOPY - COLON CA SCREENING 1979 CT COLONOGRAPHY - COLON CA SCREENING 1979 Colorectal Cancer Screening 1979 FIT - COLON CA SCREENING 1979 FLEX SIG - COLON CA SCREENING 1979 HIV SCREENING 1994 HEPATITIS C SCREENING 05/31/1997 DTAP/TDAP/TD VACCINES (1 - Tdap) 1998 HEPATITIS B VACCINE (1 of 3 - 19+ 3-dose series) 1998 SCREENING FOR DIABETES 04/29/2022 9, 04/29/2019, 04/29/2019, Additional history exists COVID-19 VACCINE ( - 2023- season) 2024 DEPRESSION SCREENING 09/14/2024 INFLUENZA VACCINE (Season Ended) 2025 ZOSTER VACCINE (1 of 2) 2029 HIB VACCINE Aged Out No longer eligi ble based on patient's age to complete this topic HPV VACCINE Aged Out No longer eligi ble based on patient's age to complete this topic MENINGOCOCCAL (Group B) VACCINE SHARED DECISION-MAKING Aged Out No longer eligible based on patient's age to complete this topic MENINGOCOCCAL GROUPS A/C/Y/W VACCINE Aged Out No longer eligible based on patient's age to complete this topic PNEUMOCOCCAL VACCINE Aged Out No long er eligible based on patient's age to complete this topic Procedures Procedure Name Priority Date/Time Associated Diagnosis Comments BASIC METABOLIC PANEL (CALCIUM TOTAL) 06/16/2017 9:52 AM CDT from Last 3 Months or Most Recently Relevant to Health Maintenance Results * (ABNORMAL) BASIC METABOLIC PANEL (CALCIUM TOTAL) (06/16/2017 9:52 AM CDT) Glucose 121(H) 65 - 99 mg/dL [facility] Comment: Fasting reference interval For someone without known diabetes, a glucose value between 100 and 125 mg/dL is consistent with prediabetes and should be confirmed with a follow-up test. BUN 12 7 - 25 mg/dL [facility] Creatinine 1.21 0.60 - 1.35 mg/dL [facility] eGFR by MDRD 75 > OR = 60 mL/min/1. 73m2 [facility] eGFR by MDRD 87 > OR = 60 mL/min/1. 73m2 [facility] BUN/Creatinine Ratio NOT APPLICABLE 6 - (calc) [facility] Sodium 144 135 - 146 mmol/L [facility] Potassium 3.8 3.5 - 5.3 mmol/L [facility] Chloride 107 98 - 110 mmol/L [facility] CO2 29 20 - 31 mmol/L [facility] Calcium 9.1 8.6 - 10.3 mg/dL [facility] Comment: Test Performed at: [facility] [id number] [id number] DANUTA CUBA DO,MPH 06/16/2017 9:52 AM CDT 06/16/2017 9:53 AM CDT Dandre Shahid MD LAB - CHEMISTRY ORDERABLES Final Result [facility] [id number] [place] [address] from Last 3 Months or Most Recently Relevant to Health Maintenance Insurance [facility]
--- OUTSIDE RECORDS SUMMARY | 2025-02-27 14:36 | XMS_ITS | Clinical Summary ---
Author Organization [facility] Address [address] [place] [address] Care Team Providers Care Risk Compliance Analyst Name Role Phone Shazialupis Andree GAMBLE Primary Care Provider [phone] Allergies No known active allergies Medications rizatriptan INDUSTRIAL ENGINEERING MANAGER (MAXALT-INDUSTRIAL ENGINEERING MANAGER) 10 mg disintegrating tablet Take 1 tablet (10 mg total) by mouth as needed 01/28/20 23 Active hydroCHLOROthiazid e (HYDRODIURIL) 25 mg tablet Take 1 tablet (25 mg total) by mouth daily 90 tablet 3 05/26/20 23 Active levothyroxine (SYNTHROID) 150 mcg tablet Take 1 tablet (150 mcg total) by mouth tariff publishing agent before breakfast 90 tablet 3 05/26/20 23 Active icosapent ethyL (VASCEPA) 1 gram capsuleIndications :Hyperlipidemia, unspecified hyperlipidemia type Take 2 capsules (2 g total) by mouth 2 (two) times a day 360 capsule 1 11/24/19 24 Active omeprazole (PriLOSEC) 20 mg capsuleIndications :Gastroesophageal reflux disease, unspecified whether esophagitis present TAKE 1 CAPSULE TWICE A DAY 90 capsule 7 05/27/20 24 Active ALPRAZolam (XANAX) 0.5 mg tablet Take 1 tablet (0.5 mg total) by mouth 3 (three) times a day as needed for anxiety 60 tablet 2 06/28/20 24 Active losartan (COZAAR) 100 mg tablet TAKE 1 TABLET DAILY 90 tablet 3 07/19/20 24 Active rosuvastatin (CRESTOR) 40 mg tablet TAKE 1 TABLET DAILY 90 tablet 3 07/19/20 24 Active NIFEdipine CC 30 mg 24 hr tablet TAKE 1 TABLET DAILY 90 tablet 3 10/18/19 25 Active albuterol HFA (PROVENTIL HFA,VENTOLIN HFA,PROAIR HFA) 90 mcg/actuation inhaler Inhale 2 puffs every 4 (four) hours as needed for wheezing or shortness of breath (And bronchospastic cough) Collaborating physician Domingo Borges MD 1 each 1 10/18/19 25 Active guaiFENesin-codein e (GUAITUSS AC) liquid 100-10 mg/5 mLIndications:Acut e bronchitis, unspecified organism Take 5 mL by mouth 4 (four) times a day as needed for cough or congestion Collaborating physician Domingo Borges MD 120 mL 10/18/19 25 Active ondansetron ODT (ZOFRAN-ODT) 4 mg disintegrating tabletIndications: Nausea Take 1 tablet (4 mg total) by mouth every 8 (eight) hours as needed for nausea or vomiting Collaborating physician Domingo Borges MD 20 tablet 10/18/19 25 Active Active Problems Problem Noted Date Diagnosed Date Acute bronchitis 10/18/2024 Acute bronchospasm 10/18/2024 Nausea 10/18/2024 Chest pain 11/24/2023 Assessment & Plan (11/24/2023 1:50 PM CDT): Chest pain radiating to back; bilateral arm numbness; headache Left ER due to wait times Discussed S/S warranting returning to ER Call cardiology when leaving to be seen Patient verbalized understanding Moderate tobacco use disorder 04/29/2023 Assessment & Plan (04/29/2023 4:47 PM CDT): Stable, well controlled; currently smoking about 1/2 pack per day, has tried quitting with limited success; no relief with patches; poor relief with bupropion Patient would like to think about Chantix, not ready to commit at this time LEXIS (generalized anxiety disorder) 04/29/2023 Assessment & Plan (04/29/2023 4:47 PM CDT): Reports multiple stressors; concerns about jobs stability and child just went to [facility] Continue Xanax 0.5 mg b.i.d. SHERRILL (obstructive sleep apnea) 02/10/2023 Insomnia 12/23/2022 Gastroesophageal reflux disease 12/23/2022 Assessment & Plan (04/29/2023 4:46 PM CDT): Stable, well controlled; no major issues with medication Continue pantoprazole 40 mg daily; encouraged patient to raise head of bed to reduce morning symptoms Type 2 diabetes mellitus without complication Assessment & Plan (08/27/2023 5:55 PM BENEFITS TECHNICIAN): Stable, well controlled; hemoglobin A1c at goal; home blood sugars run normal; no need for current medications Will continue to monitor closely Assessment & Plan (04/29/2023 4:45 PM CDT): Diagnosed approximately 1.5 years ago; patient made significant dietary changes, made healthy eating choices At this time does not require any medications Will check A1c, continue to monitor to ensure improvement of A1c and blood sugar control Hypothyroidism 09/04/2021 Assessment & Plan (08/27/2023 5:55 PM BENEFITS TECHNICIAN): Stable, well controlled; TSH at goal Continue levothyroxine 150 mcg daily Assessment & Plan (04/29/2023 4:45 PM CDT): Stable, well controlled; no major weight changes; energy levels are okay, at baseline Continue Synthroid 150 mcg daily History of myocardial infarction 09/04/2021 Hyperlipidemia 09/04/2021 Assessment & Plan (08/27/2023 5:56 PM BENEFITS TECHNICIAN): Stable, well controlled; lipids at goal today Continue rosuvastatin 40 mg daily Assessment & Plan (04/29/2023 4:46 PM CDT): Stable, well controlled; history of CVA and IN Follows with Cardiology Continue Vascepa 1 g q.i.d., rosuvastatin 40 mg daily Nonalcoholic fatty liver 02/05/2018 Myocardial infarction 02/05/2018 Hypertension 02/05/2018 Assessment & Plan (11/24/2023 1:52 PM CDT): BP at visit 134/96 Follows with cardiology Call to make an appt this week Continue Nifedipine 30 mg daily, Losartan 100 mg daily and HCTZ 25 mg daily Assessment & Plan (08/27/2023 5:55 PM BENEFITS TECHNICIAN): Not well controlled, blood pressure elevated in multiple settings, including clinic in home Currently using up-to-date CPAP Encouraged continued work towards weight loss, regular physical activity Continue hydrochlorothiazide 25 mg daily, losartan 100 mg daily; nifedipine 30 mg daily added today Assessment & Plan (04/29/2023 4:47 PM CDT): Stable, well controlled; blood pressure at target Continue losartan 100 mg daily, hydrochlorothiazide 25 mg daily Immunizations Immunization Administration Dates Next Due Influenza, Unspecified 11/24/2023(Deferr ed: Patient Refused),05/15/2023(Deferred: Patient Refused),05/28/2022(Deferred: Patient Refused) Tdap 09/03/2022 Surgical History Surgery Date Site/Laterality Comments APPENDECTOMY 2009 Appendectomy NECK SURGERY titanium disk removed. SPINAL FUSION c-5 c-6 fusion HIP SURGERY Left PROSTHODONTIC PROCEDURE full dentures CARPAL TUNNEL RELEASE Right Medical History Medical History Date Comments Hx Other Medical 2011 vitamin D deffi ciancy Hx Other Medical 1999 Hiatal hernia Anxiety Hypertension Hyperlipidemia Type 2 diabetes mellitus (HCC) p atient has been on and off metformin. Hypoactive thyroid Stroke (HCC) Family History Medical History Relation Name Comments Other Brother 2 Alive and well; Hypertension Father Hypertension; Bipolar disorder Mother 2 Bipolar dis order; Heart disease Mother 2 Heart disease; Cause of : Heart disease Hypertension Mother 2 Hypertension; Diabetes Paternal Grandmother Diabete s mellitus; Relation Name Status Comments Brother 1 Alive Brother 2 Father Mother 1 (Age 46) Mother 2 Paternal Grandmother Social History Tobacco Use Types Packs/Day Years Used Date Smoking Tobacco: Every Day Cigarettes Tobacco Cessation:Ready to Q uit: Not Asked; Counseling Given: Not Answered Alcohol Use Standard Drinks/Week Comments Yes 0 (1 standard drink = 0.6 oz pur e alcohol) AUDIT-C Answer Date Recorded Q1: How often do you have a drink containing alc ohol? 2-4 times a month 04/29/2023 Q2: How many drinks containi ng alcohol do you have on a typical day when you are drinking? 1 or 2 04/29/2023 Q3: How often do you have si x or more drinks on one occasion? Never 04/29/2023 PHQ-2 Answer Date Recorded PHQ-2 Total Score (If total score is 3 or more points, staff should administer the PHQ-9) 0 11/24/2023 Personal Safety Answer Date Recorded Have you ever been in or are you currently in a harmful physical or emotional relationship or is someone making you feel afraid or unsafe? Denies 10/18/2024 Sex and Gender Information Value Date Recorded Sex Assigned at Not on file Legal Sex Male 11:26 AM BENEFITS TECHNICIAN Gender Identity Not on file Sexual Orientation Not on file Obstetrics History Last Filed Vital Signs Vital Sign Reading Time Taken Comments Blood Pressure 120/91 10/18/2024 5:53 PM BENEFITS TECHNICIAN Pulse 86 10/18/2024 10:48 PM BENEFITS TECHNICIAN Temperature 36.9 C (98.4 F) 10/18/2024 5:53 PM BENEFITS TECHNICIAN Respiratory Rate 18 10/18/2024 10:48 PM BENEFITS TECHNICIAN Oxygen Saturation 99% 10/18/2024 10:48 PM BENEFITS TECHNICIAN Inhaled Oxygen Concentration - - Weight 86.2 kg (190 lb) 10/18/2024 5:53 PM BENEFITS TECHNICIAN Height 177.8 cm (5' 10) 11/24/2023 1:26 PM CDT Body Mass Index 27.26 11/24/2023 1:26 PM CDT Plan of Treatment Health Maintenance Due Date Last Done Comments Colon Cancer Screening-Colonoscopy 1979 Hepatitis C Screening 1979 Dilated Eye Exam 1979 Foot Exam 1979 Hepatitis B Screening 1997 Regular Well Visit/Exam 18-64 1997 Pneumococcal vaccine <65 (1 of 2 - PCV) 1998 Albumin Creatinine Ratio, Urine 04/29/2024 04/29/2023 Hemoglobin A1C 05/26/2024 11/24/2023, 04/29/2023 Depression Screening 11/23/2024 11/24/2023, 08/27/2023, 04/29/2023 Lipid Panel 11/23/2024 11/24/2023, 0802/2023, 11/14/2016 Influenza Vaccine (Season Ended) 2025 eGFR 10/18/2025 10/18/2024, 11/12, 11/23/2023, Additional history exists DTaP/Tdap/Td Vaccine (2 - Td or Tdap) 09/03/2032 09/03/2022 HPV Vaccines Aged Out No longer eligi ble based on patient's age to complete this topic Procedures Procedure Name Priority Date/Time Associated Diagnosis Comments EGFR STAT 10/18/2024 6:27 PM BENEFITS TECHNICIAN HEMOGLOBIN A1C Routine 11/24/2023 1:51 PM CDT Type 2 diabetes mellitus without complication, without long-term current use of insulin (HCC) LIPID PANEL Routine 11/24/2023 1:51 PM CDT Primary hypertension ALBUMIN CREATININE RATIO, URINE Routine 04/29/2023 3:10 PM CDT Type 2 diabetes mellitus without complication, without long-term current use of insulin (HCC) Hyperlipidemia, unspecified hyperlipidemia type Gastroesophageal reflux disease, unspecified whether esophagitis present from Last 3 Months or Most Recently Relevant to Health Maintenance Results * eGFR (10/18/2024 6:27 PM BENEFITS TECHNICIAN) eGFR 87 >=60 mL/min/1. 73 m2 Comment: Interpretive Data Reference Interval Normal >/= 90 mL/min/1.73m2 Mildly decreased* 60 - 89 mL/min/1.73m2 Mildly to moderately decreased 45 - 59 mL/min/1.73m2 Moderately to severely decreased 30 - 44 mL/min/1.73m2 Severely decreased 15 - 29 mL/min/1.73m2 Kidney Failure < 15 mL/min/1.73m2 *Relative to young adult level Estimated glomerular filtration rate is determined by the 2020 CKD-EPI equation recommended by the National Kidney Foundation (A Unifying Approach to GFR Estimation: Recommendations of the NKF-ASK Task Force on Reassessing the Inclusion of Race in Diagnosing Kidney Disease, JASN 2020). The CKD-EPI equation should not be used for patients with unstable renal function and has not been validated in children and those over 70. Current interpretive data was last reviewed 2021. Blood 10/18/2024 6:27 PM BENEFITS TECHNICIAN 10/18/2024 6:34 PM BENEFITS TECHNICIAN us Jace Steen MD LAB BLOOD ORDERABLES Final R esult Performing Organization Address [facility] Co de Phone Number [facility] ([place] [address] [place] [address] * (ABNORMAL) Hemoglobin A1c (11/24/2023 1:51 PM CDT) Hgb A1C 7.0(H) 4.0 - 5.6 % Comment:Testing performed by : [facility], [address] [place] [address]., [id number] Estimated Average Glucose 154 mg/dL [facility] Comment: The ADA recommends reporting an estimated Average Glucose (eAG) with all Hemoglobin A1c results using the equation derived from a study of 507 normal and diabetic adults. Minority populations were underrepresented and children were not included. (Diabetes Care 31:3629-5915, 2008). The eAG is not equivalent to a fasting glucose. Testing performed by: [facility], [address] [place] [address], [place]., [address] Blood 11/24/2023 1:51 PM CDT 11/24/2023 7:49 PM CDT us Kenneth Aviles MD LAB BLOOD ORDERABLES Elizabeth l Result Performing Organization Address [facility] Co de Phone Number [facility] ([place]) [address] [place] [address] [place] [address] * (ABNORMAL) Lipid panel (11/24/2023 1:51 PM CDT) Cholesterol 141 30 - 199 mg/dL Comment: Interpretive Data Ages < or = 19 years Acceptable: <170 mg/dL Borderline high: 170-199 mg/dL High: >or= 200 mg/dL Ages > or = 20 years Desirable: <200 mg/dL Borderline high: 200-239 mg/dL High: >or= 240 mg/dL Literature References: 1. Expert Panel on Integrated Guidelines for Cardiovascular Health and Risk Reduction in Children and Adolescents. Pediatrics 2011;128:S213 2. NCEP Expert Panel. Circulation 2004;110:227 Current Interpretive Data was last revised on 2018. Testing performed by: [facility], [address] [place] [address]., [address] Triglycerides 195(H) <=149 mg/dL [facility] ([place]) Comment: Interpretive Data Ages < or = 9 years Acceptable: <75 mg/dL Borderline high: 75-99 mg/dL High: >or= 100 mg/dL Ages 10 to 20 years Acceptable: <90 mg/dL Borderline high: 90-129 mg/dL High: >or= 130 mg/dL Ages > or = 20 years Desirable: <150 mg/dL Borderline high: 150-199 mg/dL High: 200-499 mg/dL Very high: >or= 499 mg/dL Literature References: 1. Expert Panel on Integrated Guidelines for Cardiovascular Health and Risk Reduction in Children and Adolescents. Pediatrics 2011;128:S213 2. NCEP Expert Panel. Circulation 2004;110:227 Current Interpretive Data was last revised on 2018. Testing performed by: [facility], [address] [place] [address]., [id number] HDL 36(L) >=40 mg/dL [facility] ([place]) Comment: Interpretive Data Ages < or = 19 years Acceptable: >45 mg/dL Borderline low: 40-45 mg/dL Low: <40 mg/dL Ages > or = 20 years Desirable: >or= 60 mg/dL Low: <40 mg/dL Literature References: 1. Expert Panel on Integrated Guidelines for Cardiovascular Health and Risk Reduction in Children and Adolescents. Pediatrics 2011;128:S213 2. NCEP Expert Panel. Circulation 2004;110:227 Current Interpretive Data was last revised on 2018. Testing performed by: [facility], [address] [place] [address]., [id number] LDL, calculated 66 <=129 mg/dL [facility] ([place]) Comment: Interpretive Data Ages < or = 19 years Acceptable: <110 mg/dL Borderline high: 110-129 mg/dL High: >or= 130 mg/dL Ages > or = 20 years Optimal: <100 mg/dL Near optimal: 100-129 mg/dL Borderline high: 130-159 mg/dL High: >160 mg/dL Literature References: 1. Expert Panel on Integrated Guidelines for Cardiovascular Health and Risk Reduction in Children and Adolescents. Pediatrics 2011;128:S213 2. NCEP Expert Panel. Circulation 2004;110:227 Current Interpretive Data was last revised on 2018. Testing performed by: [facility], [address] [place] [address]., [address] Non-HDL Cholesterol 105 mg/dL [facility] ([place]) Comment: Interpretive Data Ages < or = 19 years Acceptable: <120 mg/dL Borderline high: 120-144 mg/dL High: >145 mg/dL Ages > or = 20 years When triglycerides are >200 mg/dL, Non-HDL cholesterol is a secondary target of therapy with treatment goals that are 30 mg/dL greater than the LDL cholesterol target. Literature References: 1. Expert Panel on Integrated Guidelines for Cardiovascular Health and Risk Reduction in Children and Adolescents. Pediatrics 2011;128:S213 2. NCEP Expert Panel. Circulation 2004;110:227 Current Interpretive Data was last revised on 2018. Testing performed by: [facility], [address] [place] [address]., [address] Chol/HDL ratio 4 [facility] ([place]) Comment:Testing performed by : [address] [address] Blood 11/24/2023 1:51 PM CDT 11/24/2023 7:49 PM CDT Kenneth Aviles MD LAB BLOOD ORDERABLES Elizabeth lópez Result [facility] ([place]) [facility] Department [place] [address] * Albumin Creatinine Ratio, Urine (04/29/2023 3:10 PM CDT) Albumin Ur <12.0 mg/L [facility] ([place]) Comment: Interpretive Data No reference range established. Current interpretive data was last revised 2019. Testing performed by: [address] [address] Creatinine Ur 93.5 mg/dL [facility] ([place]) Comment: Interpretive Data No reference range established. Current interpretive data was last revised 2019. Testing performed by: [facility], [address] [place] [address]., [address] Albumin Creatinine Ratio, Ur <13 1 - 29 mg/g [facility] ([place]) Comment:Testing performed by : [facility], [address] [place] [address]., [id number] Urine 04/29/2023 3:10 PM CDT 04/29/2023 8:32 PM CDT us Kenneth Aviles MD LAB URINE ORDERABLES Elizabeth lópez Result [facility] ([place]) [facility] Department [place] [address] from Last 3 Months or Most Recently Relevant to Health Maintenance Insurance [employer] [place] Address: [facility] [id number] [place] [address] Member Subscriber Plan / Payer (Ef fective 2022-Present) Name:Rosendo Ley Relation to Subscriber:Self Name:Rosendo Ley Payer ID:[id number] ([facility]) Type:TANMAY PAULINO Address: [facility] [address] [place] [id number] Advance Directives For more information, please contact: [phone] Documents on File Type Date Recorded Patient Government Service Executive Expl anation ADVANCE DIRECTIVE 08/24/2015 12:00 AM [facility] ADMINISTRATOR FINANCIAL/MEDICAL Care Teams Risk Compliance Analyst Relationship Specialty Start Date End Date Andree Carson NP [address] [place] [address] PCP - General Nurse Practitioner 10/18/24
--- OUTSIDE RECORDS SUMMARY | 2025-02-27 14:36 | XMS_ITS | Referral Summary ---
Author Organization [facility] Address [address] [place] [address] Care Team Providers Care Coding Analyst Name Role Phone Shazialupis Andree GAMBLE Primary Care Provider [phone] Allergies No known active allergies Medications rizatriptan TRAVEL AGENCY MANAGER (MAXALT-TRAVEL AGENCY MANAGER) 10 mg disintegrating tablet Take 1 tablet (10 mg total) by mouth as needed 01/28/20 23 Active hydroCHLOROthiazid e (HYDRODIURIL) 25 mg tablet Take 1 tablet (25 mg total) by mouth daily 90 tablet 3 05/26/20 23 Active levothyroxine (SYNTHROID) 150 mcg tablet Take 1 tablet (150 mcg total) by mouth anchor tack 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 SHERRILL (obstructive sleep apnea) 02/10/2023 Insomnia 12/23/2022 Gastroesophageal reflux disease 12/23/2022 Assessment & Plan (04/29/2023 4:46 PM CDT): Stable, well controlled; no major issues with medication Continue pantoprazole 40 mg daily; encouraged patient to raise head of bed to reduce morning symptoms Type 2 diabetes mellitus without complication Assessment & Plan (08/27/2023 5:55 PM STATISTICAL MACHINE SERVICER): Stable, well controlled; hemoglobin A1c at goal; [...] 09/04/2021 Assessment & Plan (08/27/2023 5:55 PM STATISTICAL MACHINE SERVICER): Stable, well controlled; TSH at goal Continue levothyroxine 150 mcg daily Assessment & Plan (04/29/2023 4:45 PM CDT): Stable, well controlled; no major weight changes; energy levels are okay, at baseline Continue Synthroid 150 mcg daily History of myocardial infarction 09/04/2021 Hyperlipidemia 09/04/2021 Assessment & Plan (08/27/2023 5:56 PM STATISTICAL MACHINE SERVICER): Stable, well controlled; lipids at goal today Continue rosuvastatin 40 mg daily Assessment & Plan (04/29/2023 4:46 PM CDT): Stable, well controlled; history of CVA and DE Follows with Cardiology Continue Vascepa 1 g q.i.d., rosuvastatin 40 mg daily Nonalcoholic fatty liver 02/05/2018 Myocardial infarction 02/05/2018 Hypertension 02/05/2018 Assessment & Plan (11/24/2023 1:52 PM CDT): BP at visit 134/96 Follows with cardiology Call to make an appt this week Continue Nifedipine 30 mg daily, Losartan 100 mg daily and HCTZ 25 mg daily Assessment & Plan (08/27/2023 5:55 PM STATISTICAL MACHINE SERVICER): Not well controlled, blood pressure elevated in [...] Refused),05/15/2023(Deferred: Patient Refused),05/28/2022(Deferred: Patient Refused) Tdap 09/03/2022 Social History Tobacco Use Types Packs/Day Years [...] on file Legal Sex Male 11:26 AM STATISTICAL MACHINE SERVICER Gender Identity Not on file Sexual Orientation Not on file Last Filed Vital Signs Vital Sign Reading Time Taken Comments Blood Pressure 120/91 10/18/2024 5:53 PM STATISTICAL MACHINE SERVICER Pulse 86 10/18/2024 10:48 PM STATISTICAL MACHINE SERVICER Temperature 36.9 C (98.4 F) 10/18/2024 5:53 PM STATISTICAL MACHINE SERVICER Respiratory Rate 18 10/18/2024 10:48 PM STATISTICAL MACHINE SERVICER Oxygen Saturation 99% 10/18/2024 10:48 PM STATISTICAL MACHINE SERVICER Inhaled Oxygen Concentration - - Weight 86.2 kg (190 lb) 10/18/2024 5:53 PM STATISTICAL MACHINE SERVICER Height 177.8 cm (5' 10) 11/24/2023 1:26 PM CDT Body Mass Index 27.26 11/24/2023 1:26 PM CDT Plan of Treatment Not on file Procedures Procedure Name Priority Date/Time Associated Diagnosis Comments EGFR STAT 10/18/2024 6:27 PM STATISTICAL MACHINE SERVICER HEMOGLOBIN A1C Routine 11/24/2023 1:51 PM CDT [...] Maintenance Results * eGFR (10/18/2024 6:27 PM STATISTICAL MACHINE SERVICER) eGFR 87 >=60 mL/min/1. 73 m2 Comment: [...] last reviewed 2021. Blood 10/18/2024 6:27 PM STATISTICAL MACHINE SERVICER 10/18/2024 6:34 PM STATISTICAL MACHINE SERVICER us Jace Steen MD LAB BLOOD ORDERABLES Final R esult Performing Organization Address City/[facility]/ZIP Co de Phone Number MONAE VALENZUELA ([place]) [address] [facility] [place] [address] * (ABNORMAL) Hemoglobin A1c (11/24/2023 1:51 PM CDT) Hgb A1C 7.0(H) 4.0 - 5.6 % Comment:Testing performed by : [facility], [address] [place] [address]., [id number] Estimated Average Glucose 154 mg/dL MONAE VALENZUELA ([place]) Comment: The ADA recommends reporting an estimated Average Glucose (eAG) with all Hemoglobin A1c results using the equation derived from a study of 507 normal and diabetic adults. Minority populations were underrepresented and children were not included. (Diabetes Care 31:7779-5418, 2008). The eAG is not equivalent to a fasting glucose. Testing performed by: [facility], [address] [place] [address]., [id number] Blood 11/24/2023 1:51 PM CDT 11/24/2023 7:49 PM CDT us Kenneth Aviles MD LAB BLOOD ORDERABLES Elizabeth l Result Performing Organization Address City/[facility]/ZIP Co de Phone Number MONAE VALENZUELA ([place]) [address] [facility] [address] [place], [place] [id number] * (ABNORMAL) Lipid panel (11/24/2023 1:51 PM [...] on 2018. Testing performed by: [facility], [address] [place] [address]., [id number] Triglycerides 195(H) <=149 mg/dL [facility] ([place]) Comment: Interpretive Data Ages < [...] on 2018. Testing performed by: [facility], [address] [place] [address]., [id number] HDL 36(L) >=40 mg/dL [facility] ([place]) Comment: Interpretive Data Ages < [...] on 2018. Testing performed by: [facility], [address] [place] [address]., [id number] LDL, calculated 66 <=129 mg/dL MONAE VALENZUELA ([place]) Comment: Interpretive Data [...] last revised on 2018. Testing performed by: [address] [id number] Non-HDL Cholesterol 105 mg/dL MONAE VALENZUELA ([place]) [...] on 2018. Testing performed by: [facility], [address] [place] [address]., [id number] Chol/HDL ratio 4 BRANDT VALENZUELA ([place]) Comment:Testing performed by : [address] [id number] Blood 11/24/2023 1:51 PM CDT 11/24/2023 7:49 PM CDT us Kenneth Aviles MD LAB BLOOD ORDERABLES Elizabeth lópez Result MONAE VALENZUELA ([place]) [address] [facility] Department [place] [address] * Albumin Creatinine Ratio, Urine (04/29/2023 3:10 PM CDT) Albumin Ur <12.0 mg/L [facility] ([place]) Comment: Interpretive Data No reference range established. Current interpretive data was last revised 2019. Testing performed by: [facility], [address] [place] [address]., [id number] Creatinine Ur 93.5 mg/dL [facility] ([place]) Comment: Interpretive Data No reference range established. Current interpretive data was last revised 2019. Testing performed by: [facility], [address] [place] [address]., [id number] Albumin Creatinine Ratio, Ur <13 1 - 29 mg/g [facility] ([place]) Comment:Testing performed by : [facility], [address] [place] [address]., [id number] Urine 04/29/2023 3:10 PM CDT 04/29/2023 8:32 PM CDT Kenneth Aviles MD LAB URINE ORDERABLES Elizabeth lópez Result [facility] ([place]) [address] [facility] Department [place] [address] from Last 3 Months or Most Recently Relevant to Health Maintenance Insurance [facility] OOS BLUE ACC CHOICE OOS Advance Directives For more information, please contact: [phone] Documents on File Type Date Recorded Patient Materials And Corrosion Engineer Expl anation ADVANCE DIRECTIVE 08/24/2015 12:00 AM [facility] OF DINING SERVICE INSPECTOR FINANCIAL/MEDICAL Care Teams Coding Analyst Relationship Specialty Start Date End Date Andree Carson NP [address] [facility] [place] [address] PCP - General Nurse Practitioner 10/18/24
[2025-02-27 20:29] LABS: Alanine Aminotransferase 39 U/L (6-50); Albumin Level 4.8 g/dL (3.5-5.1); Alkaline Phosphatase 58 U/L (38-126); Anion Gap 10 mmol/L (4-12); Aspartate Amino Transferase 79 U/L (17-59); Bilirubin,Total 0.6 mg/dL (0.2-1.3); Blood Urea Nitrogen 16 mg/dL (9-20); Calcium 9.4 mg/dL (8.4-10.2); Carbon Dioxide 29 mmol/L (22-30); Chloride 99 mmol/L (98-107); Cholesterol 135 mg/dL (0-200); Estimated Glomerular Filt Rate > 60; Glucose 91 mg/dL (65-110); HDL Direct 52 mg/dL; Potassium 3.4 mmol/L (3.4-5.0); Sodium 138 mmol/L (137-145); Total Protein 8.2 g/dL (6.3-8.2); Triglycerides 268 mg/dL (<150)
[2025-02-27 20:41] LABS: LDL Cholesterol Direct 44 mg/dL
[2025-02-27 22:10] LABS: MALB Creatinine Ratio < 16.2 mg/g (0-30); Microalbumin Urine Random < 6.0 mg/L (0-16.7)
[2025-02-28 03:50] LABS: Hemoglobin A1C 5.5 % (<5.7)
== END 2025-02-27 13:32 | disposition home or self-care (01) ==
LOC: ANHBWCLAB 13:33
PROVIDERS: PCP Nurse Practitioner Adult Health; Visit Provider Nurse Practitioner Adult Health
DX: E11.9 Type 2 diabetes mellitus without complications (principal); E07.9 Disorder of thyroid, unspecified; Z51.81 Encounter for therapeutic drug level monitoring; Z79.899 Other long term (current) drug therapy
CPT/HCPCS: 36415; 80053; 80061; 82043; 82565; 82607; 83036; 84443

== ENCOUNTER 2025-03-02 14:19 | Outpatient (CLI) | payer BC, SELFPAY ==
--- NOTE | ~2025-03-02 | CT_ITS ---
CT Scan of the Chest without Contrast: Clinical Indication: Heart disease Technique: Contiguous sections were acquired throughout the chest without intravenous contrast. Dose reduction technique was used on this scan by utilizing automated exposure control and iterative recon struction technique. The dose-length product (DLP) was 420.27 mGy-cm. Findings: There is no evidence of any significant mediastinal, hilar or axillary lymphadenopathy. The mediastin al soft tissues appear normal. There is no evidence of pleural or pericardial effusion. The lungs are clear. No pulmonary nodules or infiltrates are noted. Images through the upper abdomen reveal no abnormalities. Impression: No significant abnormalities seen. Reviewed, dictated and finalized at location . Impression: No significant abnormalities seen.
== END 2025-03-02 14:20 | disposition home or self-care (01) ==
LOC: GOSHIMG 14:20
PROVIDERS: PCP Nurse Practitioner Adult Health; Visit Provider Nurse Practitioner Adult Health
DX: I51.9 Heart disease, unspecified (principal); R05.3 Chronic cough; F17.200 Nicotine dependence, unspecified, uncomplicated
CPT/HCPCS: 71250

== ENCOUNTER 2025-03-14 14:28 | Outpatient (CLI) | payer BC, SELFPAY ==
--- NOTE | ~2025-03-14 | CT_ITS ---
CT sinus wo con Ordering provider: Trip Jones M.D. History: . Chronic ethmoidal sinusitis . Comparison: None. Technique: Thin slice Scans CT of the paranasal sinuses was performed with coronal and sagittal refor matted images. No IV contrast. . Automated exposure control and iterative reconstruction technique w ere employed. The dose-length product was 410.46 mGy-cm. Findings: NASAL SEPTUM: Mild left nasal septal deviation. OSTEOMEATAL UNITS: The right is patent. NASAL TURBINATES AND NASOPHARYNX: Normal. PARANASAL SINUSES: Bilateral maxillary sinus disease. Bilateral ethmoid and sphenoid sinus disease. P ostoperative changes in the medial wall of the left maxillary sinus. VISUALIZED MASTOIDS: Normal as visualized. BONES: Normal. SUPERFICIAL SOFT TISSUES/VISUALIZED BRAIN PARENCHYMA: Normal. IMPRESSION: Bilateral maxillary, ethmoid and sphenoid sinus disease. Mild left nasal septal deviation Reviewed, dictated and finalized at location A.
== END 2025-03-14 14:29 | disposition home or self-care (01) ==
LOC: GOSHIMG 14:28
PROVIDERS: PCP Otolaryngology; Visit Provider Otolaryngology
DX: J32.2 Chronic ethmoidal sinusitis (principal); K21.9 Gastro-esophageal reflux disease without esophagitis; K22.4 Dyskinesia of esophagus; J30.2 Other seasonal allergic rhinitis; J34.2 Deviated nasal septum
CPT/HCPCS: 70486

== ENCOUNTER 2025-03-24 00:56 | Day surgery (SDC) | payer BC, SELFPAY ==
[2025-03-22 13:09] VITALS: BMI 27.2
--- OUTSIDE RECORDS SUMMARY | 2025-03-24 01:00 | XMS_ITS | Data Portability ---
Author Organization [place] - [facility]idox, Main Office Address [address] [place] [address] Assessment No assessment recorded. Plan of Treatment Reminders Order Date Submit Date Provider Last Modified By Organization Details Last Modified Time Details Appointments None recorded. Lab CMP, serum or plasma [address] (Lab), [address] [place], [address], 3 08:15:08 glycohemog lobin, total, blood [address] (Lab), [address] [place], [address], 3 08:15:08 TSH, serum or plasma [address] (Lab), [address] [place], [address], 3 08:15:08 lipid panel, serum [address] (Lab), [address] [place], [address], 3 08:15:07 Referral sleep medicine referral - has cpap and sleep study done per [facility] in [place], [place]. Please call the pt to make an appointmen t. 2022 023 [email or web address] [facility], [address] [facility], [place], [address], 3 18:00:17 Procedures None recorded. Surgeries None recorded. Imaging None recorded. Medication Orders zolpidem 10 mg tablet 2022 023 [id number], [address], [place], [place], [id number], 3 17:16:34 Patient TargetsNo targets recorded. Patient Instructions Encounter Date Encounter Id Patient Instructions Last Modified By Organization Details Last Modified Time 12/23/2022 [id number] 4 mo fu dm, SHERRILL, lipid, htn, thyroid, migraine, mood swings. [email or web address] Not available 12/23/2022 17:18:43 Reason for Referral Sleep Medicine Referral for Sleep apnea has cpap and sleep study done per [facility] in [place], [place]. Please call the pt to make an appointment. Referring Physician: Kaela Trinidad, Family Medicine, Encounter Date: 12/23/2022 Results Created Date Observation Date Name Description Value Unit Range Abnormal Flag Note LastModifiedBy Organization Detail LastModifiedTime 11/11/1911/12/2021 TSH TSH 11.30 mIU/L 0.40-4 .50 high Not Available [facility] [address] [place], [address], 11/12/2021 15:01:26 11/11/19 22 11/12/2021 HEPAT IC FUNCT ION PANEL protein, total 7.1 g/dL 6.1-8. 1 normal Not Available [facility] [address] [place], [address], 11/12/2021 15:01:25 11/11/19 22 11/12/2021 HEPAT IC FUNCT ION PANEL albumin 4.8 g/dL 3.6-5. 1 normal Not Available [facility] [address] [place], [address], 11/12/2021 15:01:11/11/19 22 11/12/2021 HEPAT IC FUNCT ION PANEL globulin 2.3 g/dL_ (calc ) 1.9-3. 7 normal Not Available [address], [address], 11/12/2021 15:01:25 11/11/19 22 11/12/2021 HEPAT IC FUNCT ION PANEL albumin/glob ulin ratio 2.1 (calc ) 1.0-2. 5 normal Not Available [address], [address], 11/12/2021 15:01:11/11/19 22 11/12/2021 HEPAT IC FUNCT ION PANEL bilirubin, total 0.8 mg/dL 0.2-1. 2 normal Not Available [address], [address], 11/12/2021 15:01:11/11/19 22 11/12/2021 HEPAT IC FUNCT ION PANEL bilirubin, direct 0.1 mg/dL < or = 0.2 normal Not Available [address], [address], 11/12/2021 15:01:25 11/11/19 22 11/12/2021 HEPAT IC FUNCT ION PANEL bilirubin, indirect 0.7 mg/dL _(maia c) 0.2-1. 2 normal Not Available [address], [address], 11/12/2021 15:01:25 11/11/19 22 11/12/2021 HEPAT IC FUNCT ION PANEL alkaline phosphatase 55 U/L 36-130 normal Not Available [facility] [employer] [address], [address], 11/12/2021 15:01:25 11/11/19 22 11/12/2021 HEPAT IC FUNCT ION PANEL AST 15 U/L 10-40 normal Not Available [address] [place], [address], 11/12/2021 15:01:25 11/11/19 22 11/12/2021 HEPAT IC FUNCT ION PANEL ALT 23 U/L 9-46 normal Not Available [address], [address], 11/12/2021 15:01:11/11/19 22 11/12/2021 BASIC METAB OLIC PANEL glucose 91 mg/dL 65-99 normal Fasti ng refer ence inter luanne Not Available [address], [address], 11/12/2021 15:01:11/11/19 22 11/12/2021 BASIC METAB OLIC PANEL urea nitrogen (BUN) 13 mg/dL 7-25 normal Not Available [address], [address], 11/12/2021 15:01:25 11/11/19 22 11/12/2021 BASIC METAB OLIC PANEL creatinine 1.08 mg/dL 0.60-1 .35 normal Not Available [address], [address], 11/12/2021 15:01:25 11/11/19 22 11/12/2021 BASIC METAB OLIC PANEL eGFR non-afr. central african 84 mL/mi n/1.7 3m2 > or = 60 normal Not Available [address], [address], 11/12/2021 15:01:25 11/11/19 22 11/12/2021 BASIC METAB OLIC PANEL eGFR 98 mL/mi n/1.7 3m2 > or = 60 normal Not Available [address], [address], 11/12/2021 15:01:25 11/11/19 22 11/12/2021 BASIC METAB OLIC PANEL BUN/creatini ne ratio not applic able (calc ) 6-22 Not Available [address], [address], 11/12/2021 15:01:25 11/11/19 22 11/12/2021 BASIC METAB OLIC PANEL sodium 137 mmol/ L 135-14 6 normal Not Available [address], [address], 11/12/2021 15:01:25 11/11/19 22 11/12/2021 BASIC METAB OLIC PANEL potassium 3.9 mmol/ L 3.5-5. 3 normal Not Available [address], [address], 11/12/2021 15:01:25 11/11/19 22 11/12/2021 BASIC METAB OLIC PANEL chloride 104 mmol/ L 98-110 normal Not Available [address], [address], 11/12/2021 15:01:25 11/11/19 22 11/12/2021 BASIC METAB OLIC PANEL carbon dioxide 21 mmol/ L 20-32 normal Not Available [address], [address], 11/12/2021 15:01:25 11/11/19 22 11/12/2021 BASIC METAB OLIC PANEL calcium 9.2 mg/dL 8.6-10 .3 normal Not Available [address], [address], 11/12/2021 15:01:25 11/11/19 22 11/12/2021 ALBUM IN, RANDO M URINE W/CRE ATINI NE creatinine, random urine 218 mg/dL 20-320 normal Not Available [address], [address], 11/12/2021 15:01:24 11/11/19 22 11/12/2021 ALBUM IN, RANDO M URINE W/CRE ATINI NE albumin, urine 1.6 mg/dL see note: normal Refer ence Range : Refer ence Range Not estab lishe d Not Available [address], [address], 11/12/2021 15:01:24 11/11/19 22 11/12/2021 ALBUM IN, [...] a diagn ostic categ ory. Not Available [address] [place], [address], 11/12/2021 15:01:24 11/11/19 22 11/12/2021 LIPID PANEL , STAND JAMIE cholesterol, total 236 mg/dL <200 high Not Available [facility] [address] [place], [address], 11/12/2021 15:01:24 11/11/19 22 11/12/2021 LIPID PANEL , STAND JAMIE HDL cholesterol 39 mg/dL > or = 40 low Not Available [address] [place], [address], 11/12/2021 15:01:24 11/11/19 22 11/12/2021 LIPID PANEL , STAND JAMIE triglyceride s 212 mg/dL <150 high If a non-f astin g speci men was colle cted, consi melissa repea t trigl yceri de testi ng on a fasti ng speci men if clini hitesh indic ated. Shawn mehta et al. J. of Clin. Lipid ol. 2015; 9:129 -169. Not Available [address], [address], 11/12/2021 15:01:24 11/11/19 22 11/12/2021 LIPID PANEL [...] 9): 2061- 2068 (http ://ed ucati on.Qu estDi [employer]. com/f aq/FA Q164) Not Available [place] [address] [place], [address], 11/12/2021 15:01:24 11/11/19 22 11/12/2021 LIPID PANEL , STAND JAMIE chol/HDLC ratio 6.1 (calc ) <5.0 high Not Available [address] [place], [address], 11/12/2021 15:01:24 11/11/19 22 11/12/2021 LIPID PANEL , STAND JAMIE non HDL cholesterol 197 mg/dL _(maia c) <130 high For patie nts with diabe ericka plus 1 major ASCVD risk facto r, treat ing to a non-H DL-C goal of <100 mg/dL (LDL- C of <70 mg/dL ) is consi dered a thera peuti c optio n. Not Available [facility] [address] [place], [address], 11/12/2021 15:01:24 11/11/19 22 11/11/2021 hemog lobin A1C, rand mckenzie HgbA1C 7.4 Not Available [facility] [address] , [address], [place], [address], 11/11/2021 10:52:20 03/25/20 22 03/26/2022 HEMOG LOBIN [...] diabe ericka for child julián. Not Available [facility] [address] [place], [address], 03/26/2022 15:13:29 03/25/20 22 03/26/2022 VITAM IN [...] /MS is recom artie d: order code 73969 (juan ents >2yrs ). See Note 1 Note 1 For addit ional infor esteban archer e refer to http: //[facility] caroline Mendozaia gnost ics.c om/fa q/FAQ 199 (This link is being provi ded for infor cherise dee/ educcaleb lópez purpo ses only. ) Not Available [address] [address] [place], [address], 03/26/2022 15:13:29 03/25/20 22 03/26/2022 TSH TSH 6.89 mIU/L 0.40-4 .50 high Not Available [address] [place], [address], 03/26/2022 15:13:28 03/25/20 22 03/26/2022 HEPAT IC FUNCT ION PANEL bilirubin, direct 0.2 mg/dL < or = 0.2 normal Not Available [address] [address] [place], [address], 03/26/2022 15:13:28 03/25/20 22 03/26/2022 HEPAT IC FUNCT ION PANEL bilirubin, indirect 0.6 mg/dL _(maia c) 0.2-1. 2 normal Not Available [place] [address] [place], [address], 03/26/2022 15:13:28 03/25/20 22 03/26/2022 HEPAT IC FUNCT ION PANEL alkaline phosphatase 49 U/L 36-130 normal Not Available [facility] [employer] [place] [address] [place], [address], 03/26/2022 15:13:28 03/25/20 22 03/26/2022 HEPAT IC FUNCT ION PANEL AST 18 U/L 10-40 normal Not Available [address], [address], 03/26/2022 15:13:28 03/25/20 22 03/26/2022 HEPAT IC FUNCT ION PANEL ALT 23 U/L 9-46 normal Not Available [address], [address], 03/26/2022 15:13:28 03/25/20 22 03/26/2022 HEPAT IC FUNCT ION PANEL protein, total 7.4 g/dL 6.1-8. 1 normal Not Available [address], [address], 03/26/2022 15:13:28 03/25/20 22 03/26/2022 HEPAT IC FUNCT ION PANEL albumin 4.9 g/dL 3.6-5. 1 normal Not Available [address], [address], 03/26/2022 15:13:28 03/25/20 22 03/26/2022 HEPAT IC FUNCT ION PANEL globulin 2.5 g/dL_ (calc ) 1.9-3. 7 normal Not Available [address], [address], 03/26/2022 15:13:28 03/25/20 22 03/26/2022 HEPAT IC FUNCT ION PANEL albumin/glob ulin ratio 2.0 (calc ) 1.0-2. 5 normal Not Available [address], [address], 03/26/2022 15:13:28 03/25/20 22 03/26/2022 HEPAT IC FUNCT ION PANEL bilirubin, total 0.8 mg/dL 0.2-1. 2 normal Not Available [address], [address], 03/26/2022 15:13:28 03/25/20 22 03/26/2022 BASIC METAB OLIC PANEL glucose 87 mg/dL 65-99 normal Fasti ng refer ence inter luanne Not Available [address], [address], 03/26/2022 15:13:28 03/25/20 22 03/26/2022 BASIC METAB OLIC PANEL urea nitrogen (BUN) 16 mg/dL 7-25 normal Not Available [address], [address], 03/26/2022 15:13:28 03/25/20 22 03/26/2022 BASIC METAB OLIC PANEL creatinine 1.22 mg/dL 0.60-1 .29 normal Not Available [address], [address], 03/26/2022 15:13:28 03/25/20 22 03/26/2022 BASIC METAB OLIC PANEL eGFR 76 mL/mi n/1.7 3m2 > or = 60 normal The eGFR is based on the CKD-E PI 2020 equat ion. To calcu late the new eGFR from a previ ous Creat inine or Cysta tin C resul t, go to https ://sea ceballos.sophia ray/oly yung s/ kdoqi /gfr% 5Fcal culat or Not Available [address], [address], 03/26/2022 15:13:28 03/25/20 22 03/26/2022 BASIC METAB OLIC PANEL BUN/creatini ne ratio not applic able (calc ) 6-22 Not Available [address], [address], 03/26/2022 15:13:28 03/25/20 22 03/26/2022 BASIC METAB OLIC PANEL sodium 141 mmol/ L 135-14 6 normal Not Available [address], [address], 03/26/2022 15:13:28 03/25/20 22 03/26/2022 BASIC METAB OLIC PANEL potassium 4.2 mmol/ L 3.5-5. 3 normal Not Available [address], [address], 03/26/2022 15:13:28 03/25/20 22 03/26/2022 BASIC METAB OLIC PANEL chloride 103 mmol/ L 98-110 normal Not Available [address], [address], 03/26/2022 15:13:28 03/25/20 22 03/26/2022 BASIC METAB OLIC PANEL carbon dioxide 31 mmol/ L 20-32 normal Not Available [address], [address], 03/26/2022 15:13:28 03/25/20 22 03/26/2022 BASIC METAB OLIC PANEL calcium 9.6 mg/dL 8.6-10 .3 normal Not Available [address], [address], 03/26/2022 15:13:28 03/25/20 22 03/26/2022 ALBUM IN, RANDO M URINE W/CRE ATINI NE creatinine, random urine 81 mg/dL 20-320 normal Not Available [address], [address], 03/26/2022 15:13:27 03/25/20 22 03/26/2022 ALBUM IN, RANDO M URINE W/CRE ATINI NE albumin, urine 0.5 mg/dL see note: normal Refer ence Range : Refer ence Range Not estab lishe d Not Available [address], [address], 03/26/2022 15:13:27 03/25/20 22 03/26/2022 ALBUM IN, [...] a diagn ostic categ ory. Not Available [address], [address], 03/26/2022 15:13:27 03/25/20 22 03/26/2022 LIPID PANEL , STAND JAMIE cholesterol, total 157 mg/dL <200 normal Not Available [address] [place], [address], 03/26/2022 15:13:27 03/25/20 22 03/26/2022 LIPID PANEL , STAND JAMIE HDL cholesterol 42 mg/dL > or = 40 normal Not Available [address], [address], 03/26/2022 15:13:27 03/25/20 22 03/26/2022 LIPID PANEL , STAND JAMIE triglyceride s 242 mg/dL <150 high If a non-f astin g speci men was colle cted, consi melissa repea t trigl yceri de testi ng on a fasti ng speci men if clini hitesh indic ated. Shawn mehta et al. J. of Clin. Lipid ol. 2015; 9:129 -169. Not Available [address] [address] [place], [address], 03/26/2022 15:13:27 03/25/20 22 03/26/2022 LIPID PANEL [...] the estim ation of LDL-C . Lina n SS et al. ALYSSIA. 2013; 310(1 9): 2061- 2068 (http ://ed ucati on.Qu FaceAlerta. com/f aq/FA Q164) Not Available [facility] [address] [place], [address], 03/26/2022 15:13:27 03/25/20 22 03/26/2022 LIPID PANEL , STAND JAMIE chol/HDLC ratio 3.7 (calc ) <5.0 normal Not Available [facility] [address] [place], [address], 03/26/2022 15:13:27 03/25/20 22 03/26/2022 LIPID PANEL , STAND JAMIE non HDL cholesterol 115 mg/dL _(maia c) <130 normal For patie nts with diabe ericka plus 1 major ASCVD risk facto r, treat ing to a non-H DL-C goal of <100 mg/dL (LDL- C of <70 mg/dL ) is consi dered a thera peuti c optio n. Not Available [facility] [address] [place], [address], 03/26/2022 15:13:27 09/05/20 22 09/06/2022 HEMOG LOBIN [...] diabe ericka for child julián. Not Available [facility] [address], [address], 09/06/2022 03:19:48 09/05/20 22 09/06/2022 T4, FREE T4, free 0.9 NG/dL 0.8-1. 8 normal Not Available [facility] [address], [address], 09/06/2022 03:19:48 09/05/20 22 09/06/2022 TSH W/REF COLTON TO FT4 TSH w/reflex to FT4 9.53 mIU/L 0.40-4 .50 high Not Available [facility] [address] [place], [address], 09/06/2022 03:19:47 09/05/20 22 09/06/2022 CBC (INCL UDES DIFF/ PLT) white blood cell count 5.8 thous and/u L 3.8-10 .8 normal Not Available [facility] [address], [address], 09/06/2022 03:19:47 09/05/20 22 09/06/2022 CBC (INCL UDES DIFF/ PLT) red blood cell count 5.64 alvaro on/uL 4.20-5 .80 normal Not Available [facility] [address] [address] [place], [address], 09/06/2022 03:19:47 09/05/20 22 09/06/2022 CBC (INCL UDES DIFF/ PLT) hemoglobin 16.9 g/dL 13.2-1 7.1 normal Not Available [address], [address], 09/06/2022 03:19:47 09/05/20 22 09/06/2022 CBC (INCL UDES DIFF/ PLT) hematocrit 50.6 % 38.5-5 0.0 high Not Available [address], [address], 09/06/2022 03:19:47 09/05/20 22 09/06/2022 CBC (INCL UDES DIFF/ PLT) MCV 89.7 fL 80.0-1 00.0 normal Not Available [address], [address], 09/06/2022 03:19:47 09/05/20 22 09/06/2022 CBC (INCL UDES DIFF/ PLT) MCH 30.0 pg 27.0-3 3.0 normal Not Available [address], [address], 09/06/2022 03:19:47 09/05/20 22 09/06/2022 CBC (INCL UDES DIFF/ PLT) MCHC 33.4 g/dL 32.0-3 6.0 normal Not Available [address], [address], 09/06/2022 03:19:47 09/05/20 22 09/06/2022 CBC (INCL UDES DIFF/ PLT) RDW 12.4 % 11.0-1 5.0 normal Not Available [address], [address], 09/06/2022 03:19:47 09/05/20 22 09/06/2022 CBC (INCL UDES DIFF/ PLT) platelet count 239 thous and/u L 140-40 0 normal Not Available [address], [address], 09/06/2022 03:19:47 09/05/20 22 09/06/2022 CBC (INCL UDES DIFF/ PLT) MPV 10.9 fL 7.5-12 .5 normal Not Available [address], [address], 09/06/2022 03:19:47 09/05/20 22 09/06/2022 CBC (INCL UDES DIFF/ PLT) absolute neutrophils 3323 cells /uL 1500-7 800 normal Not Available [address], [address], 09/06/2022 03:19:47 09/05/20 22 09/06/2022 CBC (INCL UDES DIFF/ PLT) absolute lymphocytes 1763 cells /uL 850-39 00 normal Not Available [address], [address], 09/06/2022 03:19:47 09/05/20 22 09/06/2022 CBC (INCL UDES DIFF/ PLT) absolute monocytes 516 cells /uL 200-95 0 normal Not Available [address], [address], 09/06/2022 03:19:47 09/05/20 22 09/06/2022 CBC (INCL UDES DIFF/ PLT) absolute eosinophils 157 cells /uL 15-500 normal Not Available [address], [address], 09/06/2022 03:19:47 09/05/20 22 09/06/2022 CBC (INCL UDES DIFF/ PLT) absolute basophils 41 cells /uL 0-200 normal Not Available [address], [address], 09/06/2022 03:19:47 09/05/20 22 09/06/2022 CBC (INCL UDES DIFF/ PLT) neutrophils 57.3 % normal Not Available [address], [address], 09/06/2022 03:19:47 09/05/20 22 09/06/2022 CBC (INCL UDES DIFF/ PLT) lymphocytes 30.4 % normal Not Available [address], [address], 09/06/2022 03:19:47 09/05/20 22 09/06/2022 CBC (INCL UDES DIFF/ PLT) monocytes 8.9 % normal Not Available [address], [address], 09/06/2022 03:19:47 09/05/20 22 09/06/2022 CBC (INCL UDES DIFF/ PLT) eosinophils 2.7 % normal Not Available [address], [address], 09/06/2022 03:19:47 09/05/20 22 09/06/2022 CBC (INCL UDES DIFF/ PLT) basophils 0.7 % normal Not Available [address], [address], 09/06/2022 03:19:47 09/05/20 22 09/06/2022 COMPR EHENS MIGNON METAB OLIC PANEL glucose 107 mg/dL 65-99 high Fasti ng refer ence inter luanne For someo ne witho ut known diabe ericka, a gluco se value betwe en 100 and 125 mg/dL is consi stent with predi abete s and shoul d be confi rmed with a follo w-up test. Not Available [address], [address], 09/06/2022 03:19:46 09/05/20 22 09/06/2022 COMPR EHENS MIGNON METAB OLIC PANEL urea nitrogen (BUN) 14 mg/dL 7-25 normal Not Available [address], [address], 09/06/2022 03:19:46 09/05/20 22 09/06/2022 COMPR EHENS MIGNON METAB OLIC PANEL creatinine 1.18 mg/dL 0.60-1 .29 normal Not Available [facility] [address], [address], 09/06/2022 03:19:46 09/05/20 22 09/06/2022 COMPR EHENS [...] kdoqi /gfr% 5Fcal culat or Not Available [address] [address] [place], [address], 09/06/2022 03:19:46 09/05/20 22 09/06/2022 COMPR EHENS MIGNON METAB OLIC PANEL BUN/creatini ne ratio not applic able (calc ) 6-22 Not Available [address], [address], 09/06/2022 03:19:46 09/05/20 22 09/06/2022 COMPR EHENS MIGNON METAB OLIC PANEL sodium 140 mmol/ L 135-14 6 normal Not Available [facility] [address], [address], 09/06/2022 03:19:46 09/05/20 22 09/06/2022 COMPR EHENS MIGNON METAB OLIC PANEL potassium 4.0 mmol/ L 3.5-5. 3 normal Not Available [facility] [address], [address], 09/06/2022 03:19:46 09/05/20 22 09/06/2022 COMPR EHENS MIGNON METAB OLIC PANEL chloride 105 mmol/ L 98-110 normal Not Available [address], [address], 09/06/2022 03:19:46 09/05/20 22 09/06/2022 COMPR EHENS MIGNON METAB OLIC PANEL carbon dioxide 28 mmol/ L 20-32 normal Not Available [address], [address], 09/06/2022 03:19:46 09/05/20 22 09/06/2022 COMPR EHENS MIGNON METAB OLIC PANEL calcium 9.3 mg/dL 8.6-10 .3 normal Not Available [address], [address], 09/06/2022 03:19:46 09/05/20 22 09/06/2022 COMPR EHENS MIGNON METAB OLIC PANEL protein, total 7.3 g/dL 6.1-8. 1 normal Not Available [address], [address], 09/06/2022 03:19:46 09/05/20 22 09/06/2022 COMPR EHENS MIGNON METAB OLIC PANEL albumin 4.7 g/dL 3.6-5. 1 normal Not Available [address], [address], 09/06/2022 03:19:46 09/05/20 22 09/06/2022 COMPR EHENS MIGNON METAB OLIC PANEL globulin 2.6 g/dL_ (calc ) 1.9-3. 7 normal Not Available [address], [address], 09/06/2022 03:19:46 09/05/20 22 09/06/2022 COMPR EHENS MIGNON METAB OLIC PANEL albumin/glob ulin ratio 1.8 (calc ) 1.0-2. 5 normal Not Available [address], [address], 09/06/2022 03:19:46 09/05/20 22 09/06/2022 COMPR EHENS MIGNON METAB OLIC PANEL bilirubin, total 0.8 mg/dL 0.2-1. 2 normal Not Available [address], [address], 09/06/2022 03:19:46 09/05/20 22 09/06/2022 COMPR EHENS MIGNON METAB OLIC PANEL alkaline phosphatase 50 U/L 36-130 normal Not Available [facility] [employer] [address], [address], 09/06/2022 03:19:46 09/05/20 22 09/06/2022 COMPR EHENS MIGNON METAB OLIC PANEL AST 24 U/L 10-40 normal Not Available [address], [address], 09/06/2022 03:19:46 09/05/20 22 09/06/2022 COMPR EHENS MIGNON METAB OLIC PANEL ALT 32 U/L 9-46 normal Not Available [address], [address], 09/06/2022 03:19:46 09/05/20 22 09/06/2022 LIPID PANEL , STAND JAMIE cholesterol, total 155 mg/dL <200 normal Not Available [address], [address], 09/06/2022 03:19:46 09/05/20 22 09/06/2022 LIPID PANEL , STAND JAMIE HDL cholesterol 35 mg/dL > or = 40 low Not Available [address], [address], 09/06/2022 03:19:46 09/05/20 22 09/06/2022 LIPID PANEL , STAND JAMIE triglyceride s 257 mg/dL <150 high If a non-f astin g speci men was colle cted, consi melissa repea t trigl yceri de testi ng on a fasti ng speci men if clini hitesh indic ated. Shawn metha et al. J. of Clin. Lipid ol. 2015; 9:129 -169. Not Available [facility] [id number] [place] [address], [address], 09/06/2022 03:19:46 09/05/20 22 09/06/2022 LIPID PANEL , STAND JAMIE LDL-choleste rol 86 mg/dL _(maia c) normal Refer ence range [...] 9): 2061- 2068 (http ://ed ucati on.Qu estDi [employer]. com/f aq/FA Q164) Not Available [facility] [address] [place] [address], [address], 09/06/2022 03:19:46 09/05/20 22 09/06/2022 LIPID PANEL , STAND JAMIE chol/HDLC ratio 4.4 (calc ) <5.0 normal Not Available [facility] [address] [place], [address], 09/06/2022 03:19:46 09/05/20 22 09/06/2022 LIPID PANEL , STAND JAMIE non HDL cholesterol 120 mg/dL _(maia c) <130 normal For patie nts with diabe ericka plus 1 major ASCVD risk facto r, treat ing to a non-H DL-C goal of <100 mg/dL (LDL- C of <70 mg/dL ) is krishna sparks n. Not Available [facility] [address] [address], [place], [address], 09/06/2022 03:19:46 10/02/19 23 10/01/2022 stres s echoc ardio gram No observ ation record ed. [id number] [facility] [address], [place], [address], 11/13/2022 00:29:04 Result Notes None recorded. Problems Name Problem SNOMED Code Status Onset Date Resolution Date Notes Provider Name and Address Organization Details Recorded Time Tobacco user 544236543 Active 2021 Not Available [facility] 3 02:05:30 Non-alcoholic fatty liver 530031301 Active 2017 Not Available [facility] 3 02:05:30 Myocardial infarction 95034609 Active 2017 Not Available [facility] 3 02:05:30 Hypertriglyce ridemia 675634737 Active 2021 Not Available [facility] 3 02:05:30 Type 2 diabetes mellitus without complication 506889451 Active 2021 Not Available [facility] 3 02:05:30 Vitamin D deficiency 71156383 Active 2020 Not Available [facility] 3 02:05:30 Dyslipidemia 764053767 Active Not Available [facility] 3 02:05:30 Migraine 14435250 Active 2021 Not Available [facility] 3 02:05:30 Hypertensive disorder 27175528 Active 2017 Not Available [facility] 3 02:05:30 History of myocardial infarction 211987588 Active 2020 Not Available [facility] 3 02:05:30 Ingrowing toenail 663017178 Active 01/13/ 2022 Not Available [facility] 3 02:05:30 Hypothyroidis m 59103148 Active 2020 Not Available [facility] 3 02:05:31 Uncontrolled type 2 diabetes mellitus 720393470 Active 2021 Not Available [facility] 3 02:05:31 Hyperlipidemi a 47111686 Active 2020 Not Available [facility] 3 02:05:31 Diabetes mellitus 67353644 Active 2020 Not Available [facility] 3 02:05:31 Sleep apnea 01270550 Active 2020 Not Available [facility] 3 02:05:31 Pain in limb 71265196 Active Not Available [facility] 3 02:05:31 Type 2 diabetes mellitus 92698827 Active 2022 Not Available [facility] 3 02:05:31 Gastroesophag eal reflux disease 185579625 Active 2022 Not Available [facility] 3 02:05:30 Insomnia 600615853 Active 2022 Not Available [facility] 3 02:05:30 Mood swings 87741026 Active 2022 Not Available [facility] 3 02:05:30 Problem Notes None recorded. Procedures Surgical History Date Name Laterality Status Provider Name and Address Organization Details Recorded Time Neck Surgeries completed Not Available [facility] 11/13/2022 00:26:05 Appendectomy completed Not Available [facility] h 11/13/2022 00:26:05 Vasectomy completed Not Available [facility] 0 11/13/2022 00:26:05 fit complete upper and lower dentures completed Not Available [facility] 11/13/2022 00:26:05 Imaging Results None recorded. Procedure [...] MOUTH EVERY 12 HOURS FOR 15 DAYS 12/22 /2021 completed Not Available Not Available Not Available [...] Heart rate Body temperature Body weight Systolic And Diastolic Provider Name and Address Organization Details Last Updated DateTime 32.3 kg/m2 177.8 cm 99 % 99 % 69 /min 96.2 [degF] 106527. 28 g 134/86 mm[Hg] Not Available [facility] 3 00:26:51 Date Recorded Body height Body mass index (BMI) Body weight Body temperature Heart rate Respiratory rate Oxygen saturation Oxygen saturation in Arterial blood by Pulse oximetry Systolic And Diastolic Provider Name and Address Organization Details Last Updated DateTime 3 177.8 cm 33.5 kg/m2 756630. 82 g 97.7 [degF] 82 /min 82 /min 96 % 96 % 180/100 mm[Hg] Kaela Payton RN [place] [employer] [facility] 3 16:49:09 Date Recorded Body mass index (BMI) Body height Oxygen saturation Oxygen saturation in Arterial blood by Pulse oximetry Heart rate Body temperature Body weight Systolic And Diastolic Provider Name and Address Organization Details Last Updated DateTime 2 32.4 kg/m2 177.8 cm 97 % 97 % 69 /min 96.3 [degF] 341799. 88 g 140/84 mm[Hg] Not Available [facility] 3 00:26:51 Date Recorded Body mass index (BMI) Body height Oxygen saturation Oxygen saturation in Arterial blood by Pulse oximetry Heart rate Body temperature Body weight Systolic And Diastolic Provider Name and Address Organization Details Last Updated DateTime 2 33.7 kg/m2 177.8 cm 98 % 98 % 79 /min 97.7 [degF] 357724. 21 g 142/90 mm[Hg] Not Available [facility] 3 00:26:51 Date Recorded Body mass index (BMI) Body height Oxygen saturation Oxygen saturation in Arterial blood by Pulse oximetry Heart rate Respiratory rate Body temperature Body weight Systolic And Diastolic Provider Name and Address Organization Details Last Updated DateTime 2 34 kg/m2 177.8 cm 96 % 96 % 71 /min 16 /min 97.7 [degF] 320022. 39 g 134/86 mm[Hg] Not Available [facility] 3 00:26:51 Social History Question Answer Notes LastModified by Organizat ion Details LastModified Time Tobacco Smoking Status Current Every Day Smoker Not Available [facility] 11/13/2022 00:25:54 Do You Have An Advance Directive? No [id number] Information not available 11/13/2022 Is Blood Transfusion Acceptable In An Emergency? Yes Information not available 12/23/2022 What Is Your Level Of Caffeine Consumption? Moderate [id number].37152 [id number] Information not available 11/13/2022 What Is Your Code Status? Full Code Information not available 12/23/2022 In The 14 Days Before Symptom Onset, Have You Had Close Contact With A Laboratory-confi rmed COVID-19 While That Case Was Ill? No [id number].[id number] Information not available 11/13/2022 In The 14 Days Before Symptom Onset, Have You Had Close Contact With A Person Who Is Under Investigation For COVID-19 While That Person Was Ill? No [id number].[id number] Information not available 11/13/2022 What Type Of Diet Are You Following? REGULAR [id number].52271 32352 Information not available 11/13/2022 What Is The Highest Grade Or Level Of School You Have Completed Or The Highest Degree You Have Received? DQ95571-1 MIGRATION.81561 93510 Information not available 11/13/2022 Have There Been Any Changes To Your Family Or Social Situation? No [id number].15720 62066 Information not available 11/13/2022 Do You Use Insect Repellent Routinely? Yes [id number].80143 22323 Information not available 11/13/2022 Where Do You Live? [facility] MIGRATION.98039 98050 Information not available 11/13/2022 Do You Have A Medical Power Of Accounting System Expert? No Information not available 12/23/2022 Do You Have Any Pets? Yes Dogs MIGRATION.34083 00965 Information not available 11/13/2022 What Is Your Relationship Status? MIGRATION.43361 43478 Information not available 11/13/2022 Do You Use Your Seat Belt Or Car Seat Routinely? Yes Information not available 12/23/2022 Do You Have Smoke And Carbon Monoxide Detectors In Your Home? Yes MIGRATION.45439 95340 Information not available 11/13/2022 Are You Passively Exposed To Smoke? Yes MIGRATION.34289 42301 Information not available 11/13/2022 Are There Any Smokers In Your House? Yes [id number].45161 95349 Information not available 11/13/2022 How Much Tobacco Do You Smoke? 0.5 PPD MIGRATION.28729 28519 Information not available 11/13/2022 Do You Participate In Social Media? No Information not available 12/23/2022 Do You Use Sunscreen Routinely? Yes MIGRATION.34995 05280 Information not available 11/13/2022 Have You Recently Traveled Abroad? No MIGRATION.54717 25505 Information not available 11/13/2022 Sex: Male Functional Status Question Answer Note LastModified by Organizat ion Details LastModified Time Do you use any illicit or recreational drugs? No MIGRATION.433403 4090 Information not available 11/13/2022 What is your level of alcohol consumption? 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 [id number] Information not available 11/13/2022 Family History Relationship Description Onset Age of this Age Resolved Age Notes LastModified by Organization Details LastModified Time Unspecified Relation Diabetes mellitus [id number] Not available 11/13/2022 00:26:06 Medical History Condition Response DIABETES, TYPE Y Immunizations Vaccine Type Date Status Note Provider Nam e and Address Organization Details Recorded Time Tdap 09/03/2022 completed Not Available [facility] 12/30/2022 02:05:31 Past Encounters Encounter ID Performer Location Encounter Start Date Encounter Closed Date Diagnosis/Indication Diagnosis SNOMED-CT Code Diagnosis ICD10 Code Diagnosis Note [id number] Steven Luu MD [facility] [place] [facility] Joanie fairchild [address] [facility] [place] [address] 09/04/2021 00:00:00 09/04/2021 13:35:35 [id number] [facility] Podiatry oDm God[place] [address] [place] [address] 09/26/2021 00:00:00 09/27/2021 09:31:08 [id number] Steven Luu MD [facility] [place] Family [address] , [place] [address] 10/03/2021 00:00:00 10/03/2021 16:33:21 [id number] [facility] Podiatry Dom God[place] [address] [place] [address] 11/11/2021 00:00:00 11/11/2021 13:21:23 [id number] [facility] [address] , [place] [address] 11/11/2021 00:00:00 11/11/2021 11:14:21 [id number] Steven Luu MD [address] , [place] [address] 03/25/2022 00:00:00 03/25/2022 11:14:48 [id number] Steven Luu MD [address] , [place] [address] 06/26/2022 00:00:00 06/26/2022 16:37:28 [id number] Demetrio Lindsey MD [address] [address] 09/03/2022 00:00:00 09/03/2022 18:24:15 [id number] Kaela Trinidad NP [address] [address] 12/23/2022 16:06:48 12/23/2022 17:35:42 Tobacco user 097351025 Z72.0 1/2 ppd. Cessation encouraged and recommende d. Non-alcoho lic fatty liver 627853425 K76.0 Trying to eat low fat options. Doesn't eat Fatty meals. Type 2 june betes mellitus without complication 739668120 E11.9 Metformin ER 500 mg po daily on hold. Having low sugars. If improved after being off the metformin, will not plan to restart. Vitamin D deficiency 347 65787 E55.9 Vit d good 03/2022 good. Pt eats dairy routinely. Hypertensive disorder 38 915790 I10 Seeing cardiology - Dr. Painter. Recent increase in losartan to 100 mg. BP 180/110, 150/100HCT Z 25 mg po daily.Losa rtan 100 mg po daily. Hypothyroidism 37456733 E03.9 TSh high, increase Levothyrox ine from 137 mcg to 150 mcg. Labs in 3 mo, February 2023.Synth roid 150 mcg po daily. Hyperlipidemia 92522486 E78.5 Rosuvastat in 40 mg po nightly. Sleep apnea 98562405 G47 .30 CPAP nightly. No fu scheduled. Will get new referral to sleep specialist per Margie. [facility]. Gastroesop hageal reflux disease 970334532 K21.9 Pantoprazo le 40 mg po daily. Diet mods. Migraine 09259703 G43.90 9 Rizatripta n 10 mg prn. Insomnia 630264894 G47.0 0 Zolpidem 10 mg po nightly. Mood swings 16190346 R45 .86 Short temper. Declines SSRI/SNRI. Referred [...] Member ID Guarantor Name 12/23/2022 1 [employer] [id number] Rosendo Ley [id number] Rosendo Ley 01/07/2024 1 [place] [id number] Rosendo Ley [id number] Rosendo Ley Notes Date Note Type Note [...] off and was told it was low. Tyler shaky. Metformin started after 11/18/22 labs. States no symptoms prior to being on metformin. Fasting 120-122.Vit d def- Vit d supplement not taken, labs were good in November 2022.Sleep apnea- CPAP not sleeping well. Not sure cause. Hard time shutting down.tobacco use- 1/2 ppd same as before.NAFL-Low fat diet generally.Headach e- still getting every few days. Did see visual developer- did get injections into plantar fascia. Returns in a few weeks. Injections did help. no diabetic neuropathy. Has short temper. Kaela Trinidad, SOAKING TANK WORKER [address] [facility] [address], [place], [address], [place] - [facility] [employer] 12/23/2022 17:31:44
[2025-03-24 13:18] VITALS: BP 121/77; PULSE 74; RESP 20; TEMP 36.6; O2SAT 98; BMI 28.2
[2025-03-24] MEDS: LACTATED RINGERS 1,000 ML 150 ML IV CONT (13:31)
--- NOTE | 2025-03-24 13:47 | P.PNAN_ITS ---
Anes - Initial Pre Proc Eval Procedure: Operation Date: 03/24/25 14:15 Proposed Procedures p Esophagogastroduodenoscopy - Juan Martell MD Date/Time: 03/24/25 13:47 Surgeon: Juan Martell MD Pre Op Diagnosis: Gastro-esophageal reflux disease without esophagit Patient Data Age: 44 Gender: M Height: 1.78 m Weight: 89.3 kg Last Vital Signs Temp 97.9 F 03/24/25 13:18 Pulse 74 03/24/25 13:18 Resp 20 03/24/25 13:18 BP 121/77 03/24/25 13:18 Pulse Ox 98 03/24/25 13:18 O2 Del Method Room Air 03/24/25 13:18 Allergies Allergy/AdvReac Type Severity Reaction Status Date / Time lidocaine Allergy Severe Swelling Verified 03/24/25 13:18 Home Medications ?Medication ?Instructions ?Recorded ?Confirmed ?Type losartan 100 mg tablet 100 mg PO DAILY 04/20/24 03/24/25 History nifedipine 30 mg tablet,extended 30 mg PO DAILY 04/20/24 03/24/25 History release rosuvastatin 40 mg tablet 40 mg PO DAILY 04/20/24 03/24/25 History ezetimibe 10 mg tablet (Zetia) 10 mg PO DAILY #90 tabs 04/21/24 03/24/25 Rx omeprazole 20 mg capsule,delayed 20 mg PO BID #180 caps 06/02/24 03/24/25 Rx release levothyroxine 137 mcg tablet 137 mcg PO DAILY #90 tabs 01/19/25 03/24/25 Rx alprazolam 0.5 mg tablet 0.5 mg PO BID #60 tabs 03/07/25 03/24/25 Rx tirzepatide 5 mg/0.5 mL See Rx Instructions .Route 03/07/25 03/24/25 Rx subcutaneous pen injector .COMPLEX #2 mL (Mounjaro) prednisone 20 mg tablet 20 mg PO DAILY chronic seasonal 03/08/25 03/22/25 Rx allergic rhinitis #14 tabs chlorthalidone 25 mg tablet 25 mg PO DAILY 03/22/25 03/24/25 History ubrogepant 100 mg tablet (Ubrelvy) 100 mg PO ONCE PRN migraine 03/22/25 03/22/25 History headache Laboratory Tests 03/24/25 13:31 POC Capillary Glucose 106 H mg/dl (65-105) Patient hx anesthesia problems: none Family hx anesthesia problems: none Results Review: All pre-operative results and documents have been reviewed as part of the pre- operative evaluation. [facility] Past Medical History Medical History Disorder of thyroid CVA (cerebral vascular accident) HTN (hypertension) Heart disease Migraine Headache Chronic GERD Diabetes Family History Family History Father Diabetes mellitus Hypertension Heart disease Cerebrovascular accident Mother Hypertension Depression Heart disease Disorder of thyroid Grandparent Asthma Diabetes mellitus Hypertension Depression Heart disease Cerebrovascular accident Disorder of thyroid Social History Social History Smoking status: Current every day smoker Alcohol intake: current Drinks per week: 6 Substance use type: does not use Lack of Transportation: No Lack of Food: Never True Current Housing: I Have Housing Concerned About Future Housing: No Difficulty Paying Gas/Electric Bills: No Difficulty Paying for Meds: No Currently Unemployed: No Education: Associate Degree Difficulty w/ Childcare or Family Care: No Living arrangements: with family Occupation/Education: occupation Additional occupation/education comments: [employer] Gender identity (if verbalized by the patient): Male Spiritual care concerns: No Agree to blood products: Yes Anes - Eval Final PreProcedure Day of Procedure 03/24/25 13:47 Patient weight: normal Heart: regular rate and rhythm Lungs: clear to auscultation Airway: Mallampati scale class II Neurological: alert and oriented Last oral intake: >/= 8 hours ASA classification: III Emergent: no Anesthetic plan: proceed Anesthesia type and monitoring: general GIVS and standard monitoring Results Review: All pre-operative results and documents have been reviewed as part of the pre- operative evaluation. Informed Consent: The patient's anesthetic plan and its attendant risks and benefits were discussed with the patient/family/POA. Questions were solicited and answers provided to the satisfaction of the patient/family/POA.
--- NOTE | 2025-03-24 14:18 | P.HP_ITS ---
History of Present Illness History of Present Illness Consent: Risks, benefits, and alternatives have been discussed and questions answered. Patient agrees to proceed with procedure. Chief complaint: Gastro-esophageal reflux disease without esophagit Narrative: Rosendo Ley is a 44 year old male with gerd on ppi, also sensation of foreign body at throat level mostly in mornings, already evaluated by ENT Review of Systems Review of Systems: All systems reviewed & are unremarkable except as noted in HPI and below PMFSH Past Medical History Medical History Disorder of thyroid CVA (cerebral vascular accident) HTN (hypertension) Heart disease Migraine Headache Chronic GERD Diabetes Family History Family History Father Diabetes mellitus Hypertension Heart disease Cerebrovascular accident Mother Hypertension Depression Heart disease Disorder of thyroid Grandparent Asthma Diabetes mellitus Hypertension Depression Heart disease Cerebrovascular accident Disorder of thyroid Social History Social History Smoking status: Current every day smoker Alcohol intake: current Drinks per week: 6 Substance use type: does not use Lack of Transportation: No Lack of Food: Never True Current Housing: I Have Housing Concerned About Future Housing: No Difficulty Paying Gas/Electric Bills: No Difficulty Paying for Meds: No Currently Unemployed: No Education: Associate Degree Difficulty w/ Childcare or Family Care: No Living arrangements: with family Occupation/Education: occupation 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 Gender identity (if verbalized by the patient): Male Spiritual care concerns: No Agree to blood products: Yes Meds Home Medications and Allergies Home Medications ?Medication ?Instructions ?Recorded ?Confirmed ?Type losartan 100 mg tablet 100 mg PO DAILY 04/20/24 03/24/25 History nifedipine 30 mg tablet,extended 30 mg PO DAILY 04/20/24 03/24/25 History release rosuvastatin 40 mg tablet 40 mg PO DAILY 04/20/24 03/24/25 History ezetimibe 10 mg tablet (Zetia) 10 mg PO DAILY #90 tabs 04/21/24 03/24/25 Rx omeprazole 20 mg capsule,delayed 20 mg PO BID #180 caps 06/02/24 03/24/25 Rx release levothyroxine 137 mcg tablet 137 mcg PO DAILY #90 tabs 01/19/25 03/24/25 Rx alprazolam 0.5 mg tablet 0.5 mg PO BID #60 tabs 03/07/25 03/24/25 Rx tirzepatide 5 mg/0.5 mL See Rx Instructions .Route 03/07/25 03/24/25 Rx subcutaneous pen injector .COMPLEX #2 mL (Mounjaro) prednisone 20 mg tablet 20 mg PO DAILY chronic seasonal 03/08/25 03/22/25 Rx allergic rhinitis #14 tabs chlorthalidone 25 mg tablet 25 mg PO DAILY 03/22/25 03/24/25 History ubrogepant 100 mg tablet (Ubrelvy) 100 mg PO ONCE PRN migraine 03/22/25 03/22/25 History headache Allergies Allergy/AdvReac Type Severity Reaction Status Date / Time lidocaine Allergy Severe Swelling Verified 03/24/25 13:18 Vital Signs Vital Signs - 24 hr 03/24/25 13:18 Temperature 97.9 F Pulse Rate 74 Respiratory Rate 20 Blood Pressure 121/77 Pulse Oximetry 98 Oxygen Delivery Room Air Exam Const: General: comfortable and no acute distress HENMT: Face/Nose/Sinus: Normal nares present Eyes: General: appearance normal, both eyes and all related structures Neck: Neck: no JVD Resp: Auscultation: clear to auscultation bilaterally Cardio: Rate: regular rate Rhythm: regular rhythm GI: Inspection: non-distended GI Palp: Yes Soft to palpation Skin: General skin exam: normal color Neuro: Speech: normal speech Extrem: General: normal to inspection Psych: Mental Status: mental status grossly normal Assessment and Plan Assessment and plan (1) Chronic GERD: Code(s): K21.9 - Gastro-esophageal reflux disease without esophagitis Status: Acute Assessment and Plan: egd with bx (2) Laryngopharyngeal reflux: Code(s): K21.9 - Gastro-esophageal reflux disease without esophagitis Status: Acute
--- NOTE | 2025-03-24 14:28 | S_PTH ---
PATIENT: Rosendo Ley LOC: [facility] Ann#:[id number] AGE/SX: 44/M ROOM: RE03/24/[address]: Juan Martell MD : 1980 BED: DIS: 03/24/2025 SPEC #: [id number] RECD: 03/27/25 08:07 STATUS: ASIF REReinier #: [id number] DIXIE: 03/24/25 14:[address]: Juan Martell DEPT: [facility] Surgical RECD BY: Imani Vasquez ENTERED: 03/27/25 08:07 SP TYPE: Surgical OTHR DR: Andree Carson APRN Tissues: A - Gastric Biopsy B - Esophageal Biopsy Procedures: Hematoxylin and Eosin Stain Gross and Microscopic Level 4
[2025-03-24 14:36] VITALS: BP 99/65; PULSE 73; RESP 18; O2SAT 98
[2025-03-24 14:46] VITALS: BP 103/74; PULSE 82; RESP 21; O2SAT 100
[2025-03-24 14:56] VITALS: BP 114/78; PULSE 61; RESP 15; O2SAT 100
== END 2025-03-24 14:59 | disposition home or self-care (01) ==
PROVIDERS: PCP Nurse Practitioner Adult Health; Referring Provider Otolaryngology; Visit Provider Internal Medicine Gastroenterology
PROC: 0DJ08ZZ Inspection of Upper Intestinal Tract, Via Natural or Artificial Opening Endoscopic (ICD-10-PCS; CPT 43239; principal; 2025-03-24 14:15)
DX: K21.00 Gastro-esophageal reflux disease with esophagitis, without bleeding (principal); K31.89 Other diseases of stomach and duodenum; E11.9 Type 2 diabetes mellitus without complications; I11.9 Hypertensive heart disease without heart failure; E07.9 Disorder of thyroid, unspecified; F17.210 Nicotine dependence, cigarettes, uncomplicated; Z79.85 Long-term (current) use of injectable non-insulin antidiabetic drugs; Z79.52 Long term (current) use of systemic steroids; Z86.79 Personal history of other diseases of the circulatory system; Z82.49 Family history of ischemic heart disease and other diseases of the circulatory system
CPT/HCPCS: 43239; 82948; 88305; J2704; J7120

== ENCOUNTER 2025-04-05 13:01 | Outpatient (CLI) | payer BC, SELFPAY ==
--- OUTSIDE RECORDS SUMMARY | 2025-04-05 13:16 | XMS_ITS | Clinical Summary ---
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 Not on file Not on file Last Filed Vital Signs Vital Sign Reading Time Taken Comments Blood Pressure 127/93 09/03/2021 9:34 PM [employer] Pulse 92 09/03/2021 9:34 PM [employer] Temperature 36.3 C (97.4 F) 09/03/2021 5:04 PM [employer] Respiratory Rate 18 09/03/2021 9:34 PM [employer] Oxygen Saturation 98% 09/03/2021 9:34 PM [employer] Inhaled Oxygen Concentration - - Weight 99.8 kg (220 lb) 09/03/2021 5:04 PM [employer] Height 177.8 cm (5' 10) 09/03/2021 5:04 PM [employer] Body Mass Index 31.57 09/03/2021 5:04 PM [employer] Plan of Treatment Health Maintenance Due Date Last Done Comments Hepatitis C Virus (HCV) Screening 1980 Human Papillomavirus (HPV) Immunization (1 - Male 3-dose series) 1994 Hepatitis B Immunization (1 of 3 - 19+ 3-dose series) 1998 SARS-COV-2 Immunization (3 - 2023- season) 2024 12/22/2020, 12/01/2020 Cologuard 2024 Colonoscopy 2024 Colorectal Cancer Screening 2024 Immunochemical Fecal Occult Blood 2024 Influenza Immunization (#1) 2025 Respiratory Syncytial Virus (RSV) Immunization (Adult) [...] patient's age to complete this topic Insurance [facility] Care Teams Bridge Teacher Relationship Specialty Start Date End Date Provider, None [place] PCP - General 09/03/21
--- OUTSIDE RECORDS SUMMARY | 2025-04-05 13:16 | XMS_ITS | Data Portability ---
Author Organization [place] [facility] [place], Main Office Address [address] [place] [address] Assessment No assessment recorded. Plan of Treatment Reminders Order Date Submit Date Provider Last Modified By Organization Details Last Modified Time Details Appointments None recorded. Lab CMP, serum or plasma [address] (Lab), [address] [place], [address], 3 08:15:08 glycohemog lobin, total, blood [address] (Lab), [address] [place], [address], 3 08:15:08 TSH, serum or plasma [address] (Lab), [address] [place], [address], 3 08:15:08 lipid panel, serum [address] (Lab), [address] [place], [address], 3 08:15:07 Referral sleep medicine referral - has cpap and sleep study done [facility] [place], [place]. Please call the pt to make an appointmen t. 2022 023 [email or web address] [facility], [address] [facility], [place], [address], 3 18:00:17 Procedures None recorded. Surgeries None recorded. Imaging None recorded. Medication Orders zolpidem 10 mg tablet 2022 023 [id number], [address], [place], [place], [id number], 3 17:16:34 Patient TargetsNo targets recorded. Patient Instructions Encounter Date Encounter Id Patient Instructions Last Modified By Organization Details Last Modified Time 12/23/2022 [id number] 4 mo fu dm, SHERRILL, lipid, htn, thyroid, migraine, mood swings. [email or web address] Not available 12/23/2022 17:18:43 Reason for Referral Sleep Medicine Referral for Sleep apnea has cpap and sleep study done per [facility] [place], [place]. Please call the pt to make an appointment. Referring Physician: Kaela Trinidad, Family Medicine, Encounter Date: 12/23/2022 Results Created Date Observation Date Name Description Value Unit Range Abnormal Flag Note LastModifiedBy Organization Detail LastModifiedTime 11/11/1911/12/2021 TSH TSH 11.30 mIU/L 0.40-4 .50 high Not Available [facility] [address] [place], [address], 11/12/2021 15:01:26 11/11/19 22 11/12/2021 HEPAT IC FUNCT ION PANEL protein, total 7.1 g/dL 6.1-8. 1 normal Not Available [facility] [address] [place], [address], 11/12/2021 15:01:25 11/11/19 22 11/12/2021 HEPAT IC FUNCT ION PANEL albumin 4.8 g/dL 3.6-5. 1 normal Not Available [facility] [address] [place], [address], 11/12/2021 15:01:11/11/19 22 11/12/2021 HEPAT IC FUNCT ION PANEL globulin 2.3 g/dL_ (calc ) 1.9-3. 7 normal Not Available [address], [address], 11/12/2021 15:01:25 11/11/19 22 11/12/2021 HEPAT IC FUNCT ION PANEL albumin/glob ulin ratio 2.1 (calc ) 1.0-2. 5 normal Not Available [address], [address], 11/12/2021 15:01:11/11/19 22 11/12/2021 HEPAT IC FUNCT ION PANEL bilirubin, total 0.8 mg/dL 0.2-1. 2 normal Not Available [address], [address], 11/12/2021 15:01:11/11/19 22 11/12/2021 HEPAT IC FUNCT ION PANEL bilirubin, direct 0.1 mg/dL < or = 0.2 normal Not Available [address], [address], 11/12/2021 15:01:25 11/11/19 22 11/12/2021 HEPAT IC FUNCT ION PANEL bilirubin, indirect 0.7 mg/dL _(maia c) 0.2-1. 2 normal Not Available [address], [address], 11/12/2021 15:01:25 11/11/19 22 11/12/2021 HEPAT IC FUNCT ION PANEL alkaline phosphatase 55 U/L 36-130 normal Not Available [facility] [employer] [address], [address], 11/12/2021 15:01:25 11/11/19 22 11/12/2021 HEPAT IC FUNCT ION PANEL AST 15 U/L 10-40 normal Not Available [address] [place], [address], 11/12/2021 15:01:25 11/11/19 22 11/12/2021 HEPAT IC FUNCT ION PANEL ALT 23 U/L 9-46 normal Not Available [address], [address], 11/12/2021 15:01:11/11/19 22 11/12/2021 BASIC METAB OLIC PANEL glucose 91 mg/dL 65-99 normal Fasti ng refer ence inter luanne Not Available [address], [address], 11/12/2021 15:01:11/11/19 22 11/12/2021 BASIC METAB OLIC PANEL urea nitrogen (BUN) 13 mg/dL 7-25 normal Not Available [address], [address], 11/12/2021 15:01:25 11/11/19 22 11/12/2021 BASIC METAB OLIC PANEL creatinine 1.08 mg/dL 0.60-1 .35 normal Not Available [address], [address], 11/12/2021 15:01:25 11/11/19 22 11/12/2021 BASIC METAB OLIC PANEL eGFR non-afr. citizen of [place] 84 mL/mi n/1.7 3m2 > or = 60 normal Not Available [address], [address], 11/12/2021 15:01:25 11/11/19 22 11/12/2021 BASIC METAB OLIC PANEL eGFR 98 mL/mi n/1.7 3m2 > or = 60 normal Not Available [address], [address], 11/12/2021 15:01:25 11/11/19 22 11/12/2021 BASIC METAB OLIC PANEL BUN/creatini ne ratio not applic able (calc ) 6-22 Not Available [address], [address], 11/12/2021 15:01:25 11/11/19 22 11/12/2021 BASIC METAB OLIC PANEL sodium 137 mmol/ L 135-14 6 normal Not Available [address], [address], 11/12/2021 15:01:25 11/11/19 22 11/12/2021 BASIC METAB OLIC PANEL potassium 3.9 mmol/ L 3.5-5. 3 normal Not Available [address], [address], 11/12/2021 15:01:25 11/11/19 22 11/12/2021 BASIC METAB OLIC PANEL chloride 104 mmol/ L 98-110 normal Not Available [address], [address], 11/12/2021 15:01:25 11/11/19 22 11/12/2021 BASIC METAB OLIC PANEL carbon dioxide 21 mmol/ L 20-32 normal Not Available [address], [address], 11/12/2021 15:01:25 11/11/19 22 11/12/2021 BASIC METAB OLIC PANEL calcium 9.2 mg/dL 8.6-10 .3 normal Not Available [address], [address], 11/12/2021 15:01:25 11/11/19 22 11/12/2021 ALBUM IN, RANDO M URINE W/CRE ATINI NE creatinine, random urine 218 mg/dL 20-320 normal Not Available [address], [address], 11/12/2021 15:01:24 11/11/19 22 11/12/2021 ALBUM IN, RANDO M URINE W/CRE ATINI NE albumin, urine 1.6 mg/dL see note: normal Refer ence Range : Refer ence Range Not estab lishe d Not Available [address], [address], 11/12/2021 15:01:24 11/11/19 22 11/12/2021 ALBUM IN, [...] a diagn ostic categ ory. Not Available [address] [place], [address], 11/12/2021 15:01:24 11/11/19 22 11/12/2021 LIPID PANEL , STAND JAMIE cholesterol, total 236 mg/dL <200 high Not Available [facility] [address] [place], [address], 11/12/2021 15:01:24 11/11/19 22 11/12/2021 LIPID PANEL , STAND JAMIE HDL cholesterol 39 mg/dL > or = 40 low Not Available [address] [place], [address], 11/12/2021 15:01:24 11/11/19 22 11/12/2021 LIPID PANEL , STAND JAMIE triglyceride s 212 mg/dL <150 high If a non-f astin g speci men was colle cted, consi melissa repea t trigl yceri de testi ng on a fasti ng speci men if clini hitesh indic ated. Shawn mehta et al. J. of Clin. Lipid ol. 2015; 9:129 -169. Not Available [address], [address], 11/12/2021 15:01:24 11/11/19 22 11/12/2021 LIPID PANEL [...] 2061- 2068 (http ://ed ucati on.Qu estDi NileGuide. com/f aq/FA Q164) Not Available [place] [address] [facility] [place], [address], 11/12/2021 15:01:24 11/11/19 22 11/12/2021 LIPID PANEL , STAND JAMIE chol/HDLC ratio 6.1 (calc ) <5.0 high Not Available [address] [address] [place], [address], 11/12/2021 15:01:24 11/11/19 22 11/12/2021 LIPID PANEL , STAND JAMIE non HDL cholesterol 197 mg/dL _(maia c) <130 high For patie nts with diabe ericka plus 1 major ASCVD risk facto r, treat ing to a non-H DL-C goal of <100 mg/dL (LDL- C of <70 mg/dL ) is consi dered a thera peuti c optio n. Not Available [facility] [address] [place], [address], 11/12/2021 15:01:24 11/11/19 22 11/11/2021 hemog lobin A1C, rand mckenzie HgbA1C 7.4 Not Available [facility] [address] , [address], [place], [address], 11/11/2021 10:52:20 03/25/20 22 03/26/2022 HEMOG LOBIN [...] diabe ericka for child julián. Not Available [facility] [address] [place], [address], 03/26/2022 15:13:29 03/25/20 22 03/26/2022 VITAM IN [...] /MS is recom artie d: order code 71012 (juan ents >2yrs ). See Note 1 Note 1 For addit ional infor esteban archer e refer to http: //[facility] caroline Mendozaia gnost ics.c om/fa q/FAQ 199 (This link is being provi ded for infor cherise dee/ educcaleb lópez purpo ses only. ) Not Available [address] [address] [place], [address], 03/26/2022 15:13:29 03/25/20 22 03/26/2022 TSH TSH 6.89 mIU/L 0.40-4 .50 high Not Available [address] [address] [place], [address], 03/26/2022 15:13:28 03/25/20 22 03/26/2022 HEPAT IC FUNCT ION PANEL bilirubin, direct 0.2 mg/dL < or = 0.2 normal Not Available [address] [address] [place], [address], 03/26/2022 15:13:28 03/25/20 22 03/26/2022 HEPAT IC FUNCT ION PANEL bilirubin, indirect 0.6 mg/dL _(maia c) 0.2-1. 2 normal Not Available [address] [address] [place], [address], 03/26/2022 15:13:28 03/25/20 22 03/26/2022 HEPAT IC FUNCT ION PANEL alkaline phosphatase 49 U/L 36-130 normal Not Available [facility] [employer] [place] [address] [place], [address], 03/26/2022 15:13:28 03/25/20 22 03/26/2022 HEPAT IC FUNCT ION PANEL AST 18 U/L 10-40 normal Not Available [address], [address], 03/26/2022 15:13:28 03/25/20 22 03/26/2022 HEPAT IC FUNCT ION PANEL ALT 23 U/L 9-46 normal Not Available [address], [address], 03/26/2022 15:13:28 03/25/20 22 03/26/2022 HEPAT IC FUNCT ION PANEL protein, total 7.4 g/dL 6.1-8. 1 normal Not Available [address], [address], 03/26/2022 15:13:28 03/25/20 22 03/26/2022 HEPAT IC FUNCT ION PANEL albumin 4.9 g/dL 3.6-5. 1 normal Not Available [address], [address], 03/26/2022 15:13:28 03/25/20 22 03/26/2022 HEPAT IC FUNCT ION PANEL globulin 2.5 g/dL_ (calc ) 1.9-3. 7 normal Not Available [address], [address], 03/26/2022 15:13:28 03/25/20 22 03/26/2022 HEPAT IC FUNCT ION PANEL albumin/glob ulin ratio 2.0 (calc ) 1.0-2. 5 normal Not Available [address], [address], 03/26/2022 15:13:28 03/25/20 22 03/26/2022 HEPAT IC FUNCT ION PANEL bilirubin, total 0.8 mg/dL 0.2-1. 2 normal Not Available [address], [address], 03/26/2022 15:13:28 03/25/20 22 03/26/2022 BASIC METAB OLIC PANEL glucose 87 mg/dL 65-99 normal Fasti ng refer ence inter luanne Not Available [address], [address], 03/26/2022 15:13:28 03/25/20 22 03/26/2022 BASIC METAB OLIC PANEL urea nitrogen (BUN) 16 mg/dL 7-25 normal Not Available [address], [address], 03/26/2022 15:13:28 03/25/20 22 03/26/2022 BASIC METAB OLIC PANEL creatinine 1.22 mg/dL 0.60-1 .29 normal Not Available [address], [address], 03/26/2022 15:13:28 03/25/20 22 03/26/2022 BASIC METAB OLIC PANEL eGFR 76 mL/mi n/1.7 3m2 > or = 60 normal The eGFR is based on the CKD-E PI 2020 equat ion. To calcu late the new eGFR from a previ ous Creat inine or Cysta tin C resul t, go to https ://sea ceballos.sophia ray/oly yung s/ kdoqi /gfr% 5Fcal culat or Not Available [address], [address], 03/26/2022 15:13:28 03/25/20 22 03/26/2022 BASIC METAB OLIC PANEL BUN/creatini ne ratio not applic able (calc ) 6-22 Not Available [address], [address], 03/26/2022 15:13:28 03/25/20 22 03/26/2022 BASIC METAB OLIC PANEL sodium 141 mmol/ L 135-14 6 normal Not Available [address], [address], 03/26/2022 15:13:28 03/25/20 22 03/26/2022 BASIC METAB OLIC PANEL potassium 4.2 mmol/ L 3.5-5. 3 normal Not Available [address], [address], 03/26/2022 15:13:28 03/25/20 22 03/26/2022 BASIC METAB OLIC PANEL chloride 103 mmol/ L 98-110 normal Not Available [address], [address], 03/26/2022 15:13:28 03/25/20 22 03/26/2022 BASIC METAB OLIC PANEL carbon dioxide 31 mmol/ L 20-32 normal Not Available [address], [address], 03/26/2022 15:13:28 03/25/20 22 03/26/2022 BASIC METAB OLIC PANEL calcium 9.6 mg/dL 8.6-10 .3 normal Not Available [address], [address], 03/26/2022 15:13:28 03/25/20 22 03/26/2022 ALBUM IN, RANDO M URINE W/CRE ATINI NE creatinine, random urine 81 mg/dL 20-320 normal Not Available [address], [address], 03/26/2022 15:13:27 03/25/20 22 03/26/2022 ALBUM IN, RANDO M URINE W/CRE ATINI NE albumin, urine 0.5 mg/dL see note: normal Refer ence Range : Refer ence Range Not estab lishe d Not Available [address], [address], 03/26/2022 15:13:27 03/25/20 22 03/26/2022 ALBUM IN, [...] a diagn ostic categ ory. Not Available [address], [address], 03/26/2022 15:13:27 03/25/20 22 03/26/2022 LIPID PANEL , STAND JAMIE cholesterol, total 157 mg/dL <200 normal Not Available [address] [place], [address], 03/26/2022 15:13:27 03/25/20 22 03/26/2022 LIPID PANEL , STAND JAMIE HDL cholesterol 42 mg/dL > or = 40 normal Not Available [address], [address], 03/26/2022 15:13:27 03/25/20 22 03/26/2022 LIPID PANEL , STAND JAMIE triglyceride s 242 mg/dL <150 high If a non-f astin g speci men was colle cted, consi melissa repea t trigl yceri de testi ng on a fasti ng speci men if clini hitesh indic ated. Shawn mehta et al. J. of Clin. Lipid ol. 2015; 9:129 -169. Not Available [address] [address] [place], [address], 03/26/2022 15:13:27 03/25/20 22 03/26/2022 LIPID PANEL [...] 9): 2061- 2068 (http ://ed ucati on.Qu Micello. com/f aq/FA Q164) Not Available [facility] [address] [place], [address], 03/26/2022 15:13:27 03/25/20 22 03/26/2022 LIPID PANEL , STAND JAMIE chol/HDLC ratio 3.7 (calc ) <5.0 normal Not Available [facility] [address] [place], [address], 03/26/2022 15:13:27 03/25/20 22 03/26/2022 LIPID PANEL , STAND JAMIE non HDL cholesterol 115 mg/dL _(maia c) <130 normal For patie nts with diabe ericka plus 1 major ASCVD risk facto r, treat ing to a non-H DL-C goal of <100 mg/dL (LDL- C of <70 mg/dL ) is consi dered a thera peuti c optio n. Not Available [facility] [address] [place], [address], 03/26/2022 15:13:27 09/05/20 22 09/06/2022 HEMOG LOBIN [...] diabe ericka for child julián. Not Available [facility] [address], [address], 09/06/2022 03:19:48 09/05/20 22 09/06/2022 T4, FREE T4, free 0.9 NG/dL 0.8-1. 8 normal Not Available [facility] [address], [address], 09/06/2022 03:19:48 09/05/20 22 09/06/2022 TSH W/REF COLTON TO FT4 TSH w/reflex to FT4 9.53 mIU/L 0.40-4 .50 high Not Available [facility] [address] [place], [address], 09/06/2022 03:19:47 09/05/20 22 09/06/2022 CBC (INCL UDES DIFF/ PLT) white blood cell count 5.8 thous and/u L 3.8-10 .8 normal Not Available [facility] [address], [address], 09/06/2022 03:19:47 09/05/20 22 09/06/2022 CBC (INCL UDES DIFF/ PLT) red blood cell count 5.64 alvaro on/uL 4.20-5 .80 normal Not Available [facility] [address] [address] [place], [address], 09/06/2022 03:19:47 09/05/20 22 09/06/2022 CBC (INCL UDES DIFF/ PLT) hemoglobin 16.9 g/dL 13.2-1 7.1 normal Not Available [address], [address], 09/06/2022 03:19:47 09/05/20 22 09/06/2022 CBC (INCL UDES DIFF/ PLT) hematocrit 50.6 % 38.5-5 0.0 high Not Available [address], [address], 09/06/2022 03:19:47 09/05/20 22 09/06/2022 CBC (INCL UDES DIFF/ PLT) MCV 89.7 fL 80.0-1 00.0 normal Not Available [address], [address], 09/06/2022 03:19:47 09/05/20 22 09/06/2022 CBC (INCL UDES DIFF/ PLT) MCH 30.0 pg 27.0-3 3.0 normal Not Available [address], [address], 09/06/2022 03:19:47 09/05/20 22 09/06/2022 CBC (INCL UDES DIFF/ PLT) MCHC 33.4 g/dL 32.0-3 6.0 normal Not Available [address], [address], 09/06/2022 03:19:47 09/05/20 22 09/06/2022 CBC (INCL UDES DIFF/ PLT) RDW 12.4 % 11.0-1 5.0 normal Not Available [address], [address], 09/06/2022 03:19:47 09/05/20 22 09/06/2022 CBC (INCL UDES DIFF/ PLT) platelet count 239 thous and/u L 140-40 0 normal Not Available [address], [address], 09/06/2022 03:19:47 09/05/20 22 09/06/2022 CBC (INCL UDES DIFF/ PLT) MPV 10.9 fL 7.5-12 .5 normal Not Available [address], [address], 09/06/2022 03:19:47 09/05/20 22 09/06/2022 CBC (INCL UDES DIFF/ PLT) absolute neutrophils 3323 cells /uL 1500-7 800 normal Not Available [address], [address], 09/06/2022 03:19:47 09/05/20 22 09/06/2022 CBC (INCL UDES DIFF/ PLT) absolute lymphocytes 1763 cells /uL 850-39 00 normal Not Available [address], [address], 09/06/2022 03:19:47 09/05/20 22 09/06/2022 CBC (INCL UDES DIFF/ PLT) absolute monocytes 516 cells /uL 200-95 0 normal Not Available [address], [address], 09/06/2022 03:19:47 09/05/20 22 09/06/2022 CBC (INCL UDES DIFF/ PLT) absolute eosinophils 157 cells /uL 15-500 normal Not Available [address], [address], 09/06/2022 03:19:47 09/05/20 22 09/06/2022 CBC (INCL UDES DIFF/ PLT) absolute basophils 41 cells /uL 0-200 normal Not Available [address], [address], 09/06/2022 03:19:47 09/05/20 22 09/06/2022 CBC (INCL UDES DIFF/ PLT) neutrophils 57.3 % normal Not Available [address], [address], 09/06/2022 03:19:47 09/05/20 22 09/06/2022 CBC (INCL UDES DIFF/ PLT) lymphocytes 30.4 % normal Not Available [address], [address], 09/06/2022 03:19:47 09/05/20 22 09/06/2022 CBC (INCL UDES DIFF/ PLT) monocytes 8.9 % normal Not Available [address], [address], 09/06/2022 03:19:47 09/05/20 22 09/06/2022 CBC (INCL UDES DIFF/ PLT) eosinophils 2.7 % normal Not Available [address], [address], 09/06/2022 03:19:47 09/05/20 22 09/06/2022 CBC (INCL UDES DIFF/ PLT) basophils 0.7 % normal Not Available [address], [address], 09/06/2022 03:19:47 09/05/20 22 09/06/2022 COMPR EHENS MIGNON METAB OLIC PANEL glucose 107 mg/dL 65-99 high Fasti ng refer ence inter luanne For someo ne witho ut known diabe ericka, a gluco se value betwe en 100 and 125 mg/dL is consi stent with predi abete s and shoul d be confi rmed with a follo w-up test. Not Available [address], [address], 09/06/2022 03:19:46 09/05/20 22 09/06/2022 COMPR EHENS MIGNON METAB OLIC PANEL urea nitrogen (BUN) 14 mg/dL 7-25 normal Not Available [address], [address], 09/06/2022 03:19:46 09/05/20 22 09/06/2022 COMPR EHENS MIGNON METAB OLIC PANEL creatinine 1.18 mg/dL 0.60-1 .29 normal Not Available [facility] [address], [address], 09/06/2022 03:19:46 09/05/20 22 09/06/2022 COMPR EHENS [...] kdoqi /gfr% 5Fcal culat or Not Available [address] [address] [place], [address], 09/06/2022 03:19:46 09/05/20 22 09/06/2022 COMPR EHENS MIGNON METAB OLIC PANEL BUN/creatini ne ratio not applic able (calc ) 6-22 Not Available [address], [address], 09/06/2022 03:19:46 09/05/20 22 09/06/2022 COMPR EHENS MIGNON METAB OLIC PANEL sodium 140 mmol/ L 135-14 6 normal Not Available [facility] [address], [address], 09/06/2022 03:19:46 09/05/20 22 09/06/2022 COMPR EHENS MIGNON METAB OLIC PANEL potassium 4.0 mmol/ L 3.5-5. 3 normal Not Available [facility] [address], [address], 09/06/2022 03:19:46 09/05/20 22 09/06/2022 COMPR EHENS MIGNON METAB OLIC PANEL chloride 105 mmol/ L 98-110 normal Not Available [address], [address], 09/06/2022 03:19:46 09/05/20 22 09/06/2022 COMPR EHENS MIGNON METAB OLIC PANEL carbon dioxide 28 mmol/ L 20-32 normal Not Available [address], [address], 09/06/2022 03:19:46 09/05/20 22 09/06/2022 COMPR EHENS MIGNON METAB OLIC PANEL calcium 9.3 mg/dL 8.6-10 .3 normal Not Available [address], [address], 09/06/2022 03:19:46 09/05/20 22 09/06/2022 COMPR EHENS MIGNON METAB OLIC PANEL protein, total 7.3 g/dL 6.1-8. 1 normal Not Available [address], [address], 09/06/2022 03:19:46 09/05/20 22 09/06/2022 COMPR EHENS MIGNON METAB OLIC PANEL albumin 4.7 g/dL 3.6-5. 1 normal Not Available [address], [address], 09/06/2022 03:19:46 09/05/20 22 09/06/2022 COMPR EHENS MIGNON METAB OLIC PANEL globulin 2.6 g/dL_ (calc ) 1.9-3. 7 normal Not Available [address], [address], 09/06/2022 03:19:46 09/05/20 22 09/06/2022 COMPR EHENS MIGNON METAB OLIC PANEL albumin/glob ulin ratio 1.8 (calc ) 1.0-2. 5 normal Not Available [address], [address], 09/06/2022 03:19:46 09/05/20 22 09/06/2022 COMPR EHENS MIGNON METAB OLIC PANEL bilirubin, total 0.8 mg/dL 0.2-1. 2 normal Not Available [address], [address], 09/06/2022 03:19:46 09/05/20 22 09/06/2022 COMPR EHENS MIGNON METAB OLIC PANEL alkaline phosphatase 50 U/L 36-130 normal Not Available [facility] [employer] [address], [address], 09/06/2022 03:19:46 09/05/20 22 09/06/2022 COMPR EHENS MIGNON METAB OLIC PANEL AST 24 U/L 10-40 normal Not Available [address], [address], 09/06/2022 03:19:46 09/05/20 22 09/06/2022 COMPR EHENS MIGNON METAB OLIC PANEL ALT 32 U/L 9-46 normal Not Available [address], [address], 09/06/2022 03:19:46 09/05/20 22 09/06/2022 LIPID PANEL , STAND JAMIE cholesterol, total 155 mg/dL <200 normal Not Available [address], [address], 09/06/2022 03:19:46 09/05/20 22 09/06/2022 LIPID PANEL , STAND JAMIE HDL cholesterol 35 mg/dL > or = 40 low Not Available [address], [address], 09/06/2022 03:19:46 09/05/20 22 09/06/2022 LIPID PANEL , STAND JAMIE triglyceride s 257 mg/dL <150 high If a non-f astin g speci men was colle cted, consi melissa repea t trigl yceri de testi ng on a fasti ng speci men if clini hitesh indic ated. Shawn mehta et al. J. of Clin. Lipid ol. 2015; 9:129 -169. Not Available [facility] [id number] [place] [address], [address], 09/06/2022 03:19:46 09/05/20 22 09/06/2022 LIPID PANEL [...] 2061- 2068 (http ://ed ucati on.Qu estDi NileGuide. com/f aq/FA Q164) Not Available [facility] [address] [place] [address], [address], 09/06/2022 03:19:46 09/05/20 22 09/06/2022 LIPID PANEL , STAND JAMIE chol/HDLC ratio 4.4 (calc ) <5.0 normal Not Available [facility] [address] [place], [address], 09/06/2022 03:19:46 09/05/20 22 09/06/2022 LIPID PANEL , STAND JAMIE non HDL cholesterol 120 mg/dL _(maia c) <130 normal For patie nts with diabe ericka plus 1 major ASCVD risk facto r, treat ing to a non-H DL-C goal of <100 mg/dL (LDL- C of <70 mg/dL ) is krishna sparks n. Not Available [facility] [address] [address], [place], [address], 09/06/2022 03:19:46 10/02/19 23 10/01/2022 stres s echoc ardio gram No observ ation record ed. [id number] [facility] [address], [place], [address], 11/13/2022 00:29:04 Result Notes None recorded. Problems Name Problem SNOMED Code Status Onset Date Resolution Date Notes Provider Name and Address Organization Details Recorded Time Dyslipidemia 382174241 Active Not Available [facility] 3 02:05:30 Pain in limb 47502823 Active Not Available [facility] 3 02:05:31 Non-alcoholic fatty liver 220742194 Active 2017 Not Available [facility] 3 02:05:30 Myocardial infarction 32937559 Active 2017 Not Available [facility] 3 02:05:30 Hypertensive disorder 58104747 Active 2017 Not Available [facility] 3 02:05:30 History of myocardial infarction 591175214 Active 2020 Not Available [facility] 3 02:05:30 Hypothyroidis m 69994301 Active 2020 Not Available [facility] 3 02:05:31 Hyperlipidemi a 18930191 Active 2020 Not Available [facility] 3 02:05:31 Diabetes mellitus 28100121 Active 2020 Not Available [facility] 3 02:05:31 Sleep apnea 70323787 Active 2020 Not Available [facility] 3 02:05:31 Vitamin D deficiency 64129665 Active 2020 Not Available [facility] 3 02:05:30 Type 2 diabetes mellitus without complication 660538488 Active 2021 Not Available [facility] 3 02:05:30 Ingrowing toenail 469354006 Active 2021 Not Available [facility] 3 02:05:30 Migraine 42785414 Active 2021 Not Available [facility] 3 02:05:30 Tobacco user 049979017 Active 2021 Not Available [facility] 3 02:05:30 Uncontrolled type 2 diabetes mellitus 332392261 Active 2021 Not Available [facility] 3 02:05:31 Hypertriglyce ridemia 410588320 Active 2021 Not Available [facility] 3 02:05:30 Type 2 diabetes mellitus 91145260 Active 2022 Not Available [facility] 3 02:05:31 Gastroesophag eal reflux disease 880545452 Active 2022 Not Available [facility] 3 02:05:30 Insomnia 498144051 Active 2022 Not Available [facility] 3 02:05:30 Mood swings 06359106 Active 2022 Not Available [facility] [facility] 02:05:30 Problem Notes None recorded. Procedures Surgical History Date Name Laterality Status Provider Name and Address Organization Details Recorded Time Neck Surgeries completed Not Available [facility] 11/13/2022 00:26:05 Appendectomy completed Not Available [facility] 11/13/2022 00:26:05 Vasectomy completed Not Available [facility] 0 11/13/2022 00:26:05 fit complete upper and lower dentures completed Not Available [facility] 11/13/2022 00:26:05 Imaging Results None recorded. Procedure [...] % 99 % 69 /min 96.2 [degF] 719794. 28 g 134/86 mm[Hg] Not Available [facility] 3 00:26:51 Date Recorded Body height Body mass index (BMI) Body weight Body temperature Heart rate Respiratory rate Oxygen saturation Oxygen saturation in Arterial blood by Pulse oximetry Pain severity - 0-10 verbal numeric rating [Score] - Reported Systolic And Diastolic Provider Name and Address Organization Details Last Updated DateTime 3 177.8 cm 33.5 kg/m2 270281. 82 g 97.7 [degF] 82 /min 82 /min 96 % 96 % 4 180/100 mm[Hg] Kaela Payton RN [place] - [facility] 3 16:49:09 Date Recorded Body mass index (BMI) Body height Oxygen saturation Oxygen saturation in Arterial blood by Pulse oximetry Heart rate Body temperature Body weight Systolic And Diastolic Provider Name and Address Organization Details Last Updated DateTime 2 32.4 kg/m2 177.8 cm 97 % 97 % 69 /min 96.3 [degF] 407091. 88 g 140/84 mm[Hg] Not Available [facility] 3 00:26:51 Date Recorded Body mass index (BMI) Body height Oxygen saturation Oxygen saturation in Arterial blood by Pulse oximetry Heart rate Body temperature Body weight Systolic And Diastolic Provider Name and Address Organization Details Last Updated DateTime 2 33.7 kg/m2 177.8 cm 98 % 98 % 79 /min 97.7 [degF] 051057. 21 g 142/90 mm[Hg] Not Available [facility] 3 00:26:51 Date Recorded Body mass index (BMI) Body height Oxygen saturation Oxygen saturation in Arterial blood by Pulse oximetry Heart rate Respiratory rate Body temperature Body weight Systolic And Diastolic Provider Name and Address Organization Details Last Updated DateTime 2 34 kg/m2 177.8 cm 96 % 96 % 71 /min 16 /min 97.7 [degF] 699007. 39 g 134/86 mm[Hg] Not Available [facility] 3 00:26:51 Social History Question Answer Notes LastModified by Organizat ion Details LastModified Time Tobacco Smoking Status Current Every Day Smoker Not Available [facility] 11/13/2022 00:25:54 Do You Have An Advance Directive? No [id number].[id number] Information not available 11/13/2022 Is Blood Transfusion Acceptable In An Emergency? Yes Information not available 12/23/2022 What Is Your Level Of Caffeine Consumption? Moderate MIGRATION.67355 03749 Information not available 11/13/2022 What Is Your Code Status? Full Code Information not available 12/23/2022 In The 14 Days Before Symptom Onset, Have You Had Close Contact With A Laboratory-confi rmed COVID-19 While That Case Was Ill? No MIGRATION.22409 02268 Information not available 11/13/2022 In The 14 Days Before Symptom Onset, Have You Had Close Contact With A Person Who Is Under Investigation For COVID-19 While That Person Was Ill? No MIGRATION.11290 42778 Information not available 11/13/2022 What Type Of Diet Are You Following? REGULAR MIGRATION.66088 63603 Information not available 11/13/2022 What Is The Highest Grade Or Level Of School You Have Completed Or The Highest Degree You Have Received? [id number] MIGRATION.08582 41475 Information not available 11/13/2022 Have There Been Any Changes To Your Family Or Social Situation? No MIGRATION.47327 27395 Information not available 11/13/2022 Do You Use Insect Repellent Routinely? Yes MIGRATION.24559 91265 Information not available 11/13/2022 Where Do You Live? [facility] MIGRATION.24074 78024 Information not available 11/13/2022 Do You Have A Medical Power Of Equipment Operator/Laborer? No Information not available 12/23/2022 Do You Have Any Pets? Yes Dogs MIGRATION.28634 30973 Information not available 11/13/2022 What Is Your Relationship Status? MIGRATION.10945 06598 Information not available 11/13/2022 Do You Use Your Seat Belt Or Car Seat Routinely? Yes Information not available 12/23/2022 Do You Have Smoke And Carbon Monoxide Detectors In Your Home? Yes MIGRATION.42315 49877 Information not available 11/13/2022 Are You Passively Exposed To Smoke? Yes MIGRATION.69546 95566 Information not available 11/13/2022 Are There Any Smokers In Your House? Yes MIGRATION.13734 41137 Information not available 11/13/2022 How Much Tobacco Do You Smoke? 0.5 PPD MIGRATION.30947 58430 Information not available 11/13/2022 Do You Participate In Social Media? No Information not available 12/23/2022 Do You Use Sunscreen Routinely? Yes MIGRATION.55886 91154 Information not available 11/13/2022 Have You Recently Traveled Abroad? No MIGRATION.81241 66349 Information not available 11/13/2022 Sex: Male Functional Status Question Answer Note LastModified by Organizat ion Details LastModified Time Do you use any illicit or recreational drugs? No MIGRATION.366107 5069 Information not available 11/13/2022 What is your level of alcohol consumption? 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 [id number] MIGRATION.[id number] Information not available 11/13/2022 Family History Relationship Description Onset Age of this Age Resolved Age Notes LastModified by Organization Details LastModified Time Unspecified Relation Diabetes mellitus [id number] Not available 11/13/2022 00:26:06 Medical History Condition Response DIABETES, TYPE Y Immunizations Vaccine Type Date Status Note Provider Nam e and Address Organization Details Recorded Time Tdap 09/03/2022 completed Not Available [facility] 12/30/2022 02:05:31 Past Encounters Encounter ID Performer Location Encounter Start Date Encounter Closed Date Diagnosis/Indication Diagnosis SNOMED-CT Code Diagnosis ICD10 Code Diagnosis Note [id number] Steven Luu MD [facility] Joanie fairchild [address] [place] [address] 09/04/2021 00:00:00 09/04/2021 13:35:35 [id number] [facility] [place] [address] [place] [address] 09/26/2021 00:00:00 09/27/2021 09:31:08 [id number] Steven Luu MD [facility] Family [facility] [address] [place] [address] 10/03/2021 00:00:00 10/03/2021 16:33:21 [id number] [facility] Podiatry Dom Godfrey [address] [place] [address] 11/11/2021 00:00:00 11/11/2021 13:21:23 [id number] [facility] Family [facility] [place] [address] [place] [address] 11/11/2021 00:00:00 11/11/2021 11:14:21 [id number] Steven Luu MD [facility] [place] [address] 03/25/2022 00:00:00 03/25/2022 11:14:48 [id number] Steven Luu MD [facility] [address] [place] [address] 06/26/2022 00:00:00 06/26/2022 16:37:28 [id number] Demetrio Lindsey MD [address] [address] 09/03/2022 00:00:00 09/03/2022 18:24:15 [id number] Kaela Trinidad NP [address] [address] 12/23/2022 16:06:48 12/23/2022 17:35:42 Tobacco user 581724805 Z72.0 09/15 ppd. Cessation encouraged and recommende d. Non-alcoho lic fatty liver 351310608 K76.0 Trying to eat low fat options. Doesn't eat Fatty meals. Type 2 june betes mellitus without complication 647411027 E11.9 Metformin ER 500 mg po daily on hold. Having low sugars. If improved after being off the metformin, will not plan to restart. Vitamin D deficiency 347 69806 E55.9 Vit d good 03/2022 good. Pt eats dairy routinely. Hypertensive disorder 38 211703 I10 Seeing cardiology - Dr. Painter. Recent increase in losartan to 100 mg. BP 180/110, 150/100HCT Z 25 mg po daily.Losa rtan 100 mg po daily. Hypothyroidism 24341474 E03.9 TSh high, increase Levothyrox ine from 137 mcg to 150 mcg. Labs in 3 mo, February 2023.Synth roid 150 mcg po daily. Hyperlipidemia 13760196 E78.5 Rosuvastat in 40 mg po nightly. Sleep apnea 69639825 G47 .30 CPAP nightly. No fu scheduled. Will get new referral to sleep specialist per [facility]. [facility]. Gastroesop hageal reflux disease 034874837 K21.9 Pantoprazo le 40 mg po daily. Diet mods. Migraine 02800302 G43.90 9 Rizatripta n 10 mg prn. Insomnia 732383177 G47.0 0 Zolpidem 10 mg po nightly. Mood swings 28700507 R45 .86 Short temper. Declines SSRI/SNRI. Referred [...] Member ID Guarantor Name 12/23/2022 1 [employer] [id number] Rosendo Ley [id number] Rosendo Ley 01/07/2024 1 [employer] [id number] Rosendo Ley [id number] Rosendo Ley Notes Date Note Type Note Provider Name and Address Organization Details Recorded Time 12/23/2022 text/html Here for follow up. Lipid- Low fat diet.Thyroid- labs done 11/18/22 and thyroid dose was increased.HTN- Seeing cardiology 150/[address] Quyyam increased dose of Losartan from 50 mg to 100 mg daily. No salt added to diet. Drinking Couple Dr. Bundy zero.DM- Had a low blood sugar 53 and sensor went off and was told it was low. [place] shaky. Metformin started after 11/18/22 labs. States no symptoms prior to being on metformin. Fasting 120-122.Vit d def- Vit d supplement not taken, labs were good in November 2022.Sleep apnea- CPAP not sleeping well. Not sure cause. Hard time shutting down.tobacco use- 1/2 ppd same as before.NAFL-Low fat diet generally.Headach e- still getting every few days. Did see administration assistant- did get injections into plantar fascia. Returns in a few weeks. Injections did help. no diabetic neuropathy. Has short temper. Kaela Trinidad, TYE [address] [facility], [facility] [address], [place], [address], [place] - [facility] [employer] 12/23/2022 17:31:44
--- NOTE | 2025-04-05 14:30 | ECG_ITS ---
Test Date: 2025-04-05 13:40:05 Measurements Intervals [place] Rate: 83 P: 30 RI: 152 QRS: 27 QRSD: 108 T: 14 QT: 363 QTc: 429 Interpretive Statements SINUS RHYTHM NORMAL ECG No previous ECG available for comparison Electronically Signed On 04-05-2025 14:12:27 CDT by Robin Moctezuma M.D.
== END 2025-04-05 13:02 | disposition home or self-care (01) ==
LOC: ANHSURGERY 13:09
PROVIDERS: PCP Nurse Practitioner Adult Health; Visit Provider Otolaryngology Otolaryngology/Facial Plastic Surgery
DX: E11.9 Type 2 diabetes mellitus without complications (principal); I10 Essential (primary) hypertension; I11.0 Hypertensive heart disease with heart failure
CPT/HCPCS: 93005

== ENCOUNTER 2025-04-07 00:22 | Day surgery (SDC) | payer BC, SELFPAY ==
[2025-04-04 13:31] VITALS: BMI 28.0
--- NOTE | 2025-04-04 13:32 | PC.NURSE ---
Report to the Outpatient Waiting Room, entrance under the green pavilion located off [facility], at time _0600_ on date _[id number]_. Planned Procedure Time: _0730_.? Time changes happen often and if your time is changed the preop area will call you the afternoon before. - You and your visitor will be asked to self-screen and do not enter if you have any COVID symptoms. Please call surgeon if you need to reschedule. - A mask is optional within the hospital at this time. Patients may have clear liquids (water, carbonated beverages, clear teas, apple juice) until 3 hours prior to surgery with a maximum of 20 ounces. - No food from midnight until time of surgery and no smoking, or chewing tobacco (or any form of nicotine). No chewing gum, candy or mints. Take only the following medications with a SIP of water on the morning of surgery: __Nifedipine, Levothyroxine, Alprazolam, Prednisone, Medrol, and Doxycycline. DO NOT STOP ANY OF YOUR OTHER PRESCRIPTION MEDICATIONS PRIOR TO SURGERY EXCEPT THE FOLLOWING Hold all vitamins and supplements for 3 days per anesthesiologist. Medications to discontinue per physician Date to take last dose Please no make-up, nail faroese, hairspray, perfume, deodorant, or body powder the day of surgery.? No jewelry (including any body piercings) or valuables the day of surgery, leave them at home.? Please take a shower or bath the night before, or the morning of, surgery with an antibacterial soap.? Wear comfortable, loose fitting clothing. - Jewelry must be removed prior to entering the operating room.? Rings and piercings that are not removed may be cut off. - The hospital will not accept responsibility for valuables.? - Please leave all valuables, including medications, at home the day of surgery. If you are going home after surgery, a licensed concrete truck driver must drive you home.? - NO public transportation without another adult if you receive anesthesia. - We recommend that an adult stay with you for 24 hours following discharge. - We also recommend that you do not drive, make important decision, drink alcoholic beverages, or take any drugs that were not prescribed by your health care provider for at least 24 hours after your discharge time. Follow any additional instructions given to you from your surgeon. Telephone instructions given to __Rosendo___and asked if any additional questions and then verbalized understanding. Patient advised to call surgeon office or pre surgery nurse liaison [phone] if any additional questions.
[2025-04-07] VITALS (9 sets, daily range): BP systolic 110–141; BP diastolic 80–95; PULSE 70–93; RESP 12–18; TEMP 36.3; O2SAT 95–100; BMI 28.7
--- OUTSIDE RECORDS SUMMARY | 2025-04-07 00:25 | XMS_ITS | Clinical Summary ---
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 Not on file Not on file Last Filed Vital Signs Vital Sign Reading Time Taken Comments Blood Pressure 127/93 09/03/2021 9:34 PM [employer] Pulse 92 09/03/2021 9:34 PM [employer] Temperature 36.3 C (97.4 F) 09/03/2021 5:04 PM [employer] Respiratory Rate 18 09/03/2021 9:34 PM [employer] Oxygen Saturation 98% 09/03/2021 9:34 PM [employer] Inhaled Oxygen Concentration - - Weight 99.8 kg (220 lb) 09/03/2021 5:04 PM [employer] Height 177.8 cm (5' 10) 09/03/2021 5:04 PM [employer] Body Mass Index 31.57 09/03/2021 5:04 PM [employer] Plan of Treatment Health Maintenance Due Date [...] patient's age to complete this topic Insurance [facility] Care Teams Vehicle Cost Engineer Relationship Specialty Start Date End Date Provider, None [place] PCP - General 09/03/21
--- OUTSIDE RECORDS SUMMARY | 2025-04-07 00:25 | XMS_ITS | Data Portability ---
Author Organization [place] - [facility] [employer], Main Office Address [address] [place] [address] Assessment No assessment recorded. Plan of Treatment Reminders Order Date Submit Date Provider Last Modified By Organization Details Last Modified Time Details Appointments None recorded. Lab CMP, serum or plasma [address] (Lab), [address] [place], [address], 3 08:15:08 glycohemog lobin, total, blood [address] (Lab), [address] [place], [address], 3 08:15:08 TSH, serum or plasma [address] (Lab), [address] [place], [address], 3 08:15:08 lipid panel, serum [address] (Lab), [address] [place], [address], 3 08:15:07 Referral sleep medicine referral - has cpap and sleep study done [facility] [place], [place]. Please call the pt to make an appointmen t. 2022 023 [email or web address] [facility], [address] [facility], [place], [address], 3 18:00:17 Procedures None recorded. Surgeries None recorded. Imaging None recorded. Medication Orders zolpidem 10 mg tablet 2022 023 [id number], [address], [place], [place], [id number], 3 17:16:34 Patient TargetsNo targets recorded. Patient Instructions Encounter Date Encounter Id Patient Instructions Last Modified By Organization Details Last Modified Time 12/23/2022 [id number] mo fu dm, SHERRILL, lipid, htn, thyroid, migraine, mood swings. [email or web address] Not available 12/23/2022 17:18:43 Reason for Referral Sleep Medicine Referral for Sleep apnea has cpap and sleep study done [facility] [place]. Please call the pt to make an appointment. Referring Physician: Kaela Trinidad, Family Medicine, Encounter Date: 12/23/2022 Results Created Date Observation Date Name Description Value Unit Range Abnormal Flag Note LastModifiedBy Organization Detail LastModifiedTime 11/11/1911/12/2021 TSH TSH 11.30 mIU/L 0.40-4 .50 high Not Available [employer] [facility] [address] [place], [address], 11/12/2021 15:01:26 11/11/19 22 11/12/2021 HEPAT IC FUNCT ION PANEL protein, total 7.1 g/dL 6.1-8. 1 normal Not Available [facility] [address] [place], [address], 11/12/2021 15:01:25 11/11/19 22 11/12/2021 HEPAT IC FUNCT ION PANEL albumin 4.8 g/dL 3.6-5. 1 normal Not Available [facility] [address] [place], [address], 11/12/2021 15:01:11/11/19 22 11/12/2021 HEPAT IC FUNCT ION PANEL globulin 2.3 g/dL_ (calc ) 1.9-3. 7 normal Not Available [address], [address], 11/12/2021 15:01:25 11/11/19 22 11/12/2021 HEPAT IC FUNCT ION PANEL albumin/glob ulin ratio 2.1 (calc ) 1.0-2. 5 normal Not Available [address], [address], 11/12/2021 15:01:11/11/19 22 11/12/2021 HEPAT IC FUNCT ION PANEL bilirubin, total 0.8 mg/dL 0.2-1. 2 normal Not Available [address], [address], 11/12/2021 15:01:11/11/19 22 11/12/2021 HEPAT IC FUNCT ION PANEL bilirubin, direct 0.1 mg/dL < or = 0.2 normal Not Available [address], [address], 11/12/2021 15:01:25 11/11/19 22 11/12/2021 HEPAT IC FUNCT ION PANEL bilirubin, indirect 0.7 mg/dL _(maia c) 0.2-1. 2 normal Not Available [address], [address], 11/12/2021 15:01:25 11/11/19 22 11/12/2021 HEPAT IC FUNCT ION PANEL alkaline phosphatase 55 U/L 36-130 normal Not Available [facility] [address], [address], 11/12/2021 15:01:25 11/11/19 22 11/12/2021 HEPAT IC FUNCT ION PANEL AST 15 U/L 10-40 normal Not Available [address] [place], [address], 11/12/2021 15:01:25 11/11/19 22 11/12/2021 HEPAT IC FUNCT ION PANEL ALT 23 U/L 9-46 normal Not Available [address], [address], 11/12/2021 15:01:11/11/19 22 11/12/2021 BASIC METAB OLIC PANEL glucose 91 mg/dL 65-99 normal Fasti ng refer ence inter luanne Not Available [address], [address], 11/12/2021 15:01:11/11/19 22 11/12/2021 BASIC METAB OLIC PANEL urea nitrogen (BUN) 13 mg/dL 7-25 normal Not Available [address], [address], 11/12/2021 15:01:25 11/11/19 22 11/12/2021 BASIC METAB OLIC PANEL creatinine 1.08 mg/dL 0.60-1 .35 normal Not Available [address], [address], 11/12/2021 15:01:25 11/11/19 22 11/12/2021 BASIC METAB OLIC PANEL eGFR non-afr. montserratian 84 mL/mi n/1.7 3m2 > or = 60 normal Not Available [address], [address], 11/12/2021 15:01:25 11/11/19 22 11/12/2021 BASIC METAB OLIC PANEL eGFR 98 mL/mi n/1.7 3m2 > or = 60 normal Not Available [address], [address], 11/12/2021 15:01:25 11/11/19 22 11/12/2021 BASIC METAB OLIC PANEL BUN/creatini ne ratio not applic able (calc ) 6-22 Not Available [address], [address], 11/12/2021 15:01:25 11/11/19 22 11/12/2021 BASIC METAB OLIC PANEL sodium 137 mmol/ L 135-14 6 normal Not Available [address], [address], 11/12/2021 15:01:25 11/11/19 22 11/12/2021 BASIC METAB OLIC PANEL potassium 3.9 mmol/ L 3.5-5. 3 normal Not Available [address], [address], 11/12/2021 15:01:25 11/11/19 22 11/12/2021 BASIC METAB OLIC PANEL chloride 104 mmol/ L 98-110 normal Not Available [address], [address], 11/12/2021 15:01:25 11/11/19 22 11/12/2021 BASIC METAB OLIC PANEL carbon dioxide 21 mmol/ L 20-32 normal Not Available [address], [address], 11/12/2021 15:01:25 11/11/19 22 11/12/2021 BASIC METAB OLIC PANEL calcium 9.2 mg/dL 8.6-10 .3 normal Not Available [address], [address], 11/12/2021 15:01:25 11/11/19 22 11/12/2021 ALBUM IN, RANDO M URINE W/CRE ATINI NE creatinine, random urine 218 mg/dL 20-320 normal Not Available [address], [address], 11/12/2021 15:01:24 11/11/19 22 11/12/2021 ALBUM IN, RANDO M URINE W/CRE ATINI NE albumin, urine 1.6 mg/dL see note: normal Refer ence Range : Refer ence Range Not estab lishe d Not Available [address], [address], 11/12/2021 15:01:24 11/11/19 22 11/12/2021 ALBUM IN, [...] diagn ostic categ ory. Not Available [address] [place], [address], 11/12/2021 15:01:24 11/11/19 22 11/12/2021 LIPID PANEL , STAND JAMIE cholesterol, total 236 mg/dL <200 high Not Available [employer] [address] [place], [address], 11/12/2021 15:01:24 11/11/19 22 11/12/2021 LIPID PANEL , STAND JAMIE HDL cholesterol 39 mg/dL > or = 40 low Not Available [address] [place], [address], 11/12/2021 15:01:24 11/11/19 22 11/12/2021 LIPID PANEL , STAND JAMIE triglyceride s 212 mg/dL <150 high If a non-f astin g speci men was colle cted, consi melissa repea t trigl yceri de testi ng on a fasti ng speci men if clini hitesh indic ated. Shawn mehta et al. J. of Clin. Lipid ol. 2015; 9:129 -169. Not Available [address], [address], 11/12/2021 15:01:24 11/11/19 22 11/12/2021 LIPID PANEL [...] 2061- 2068 (http ://ed ucati on.Qu estDi Proterro. com/f aq/FA Q164) Not Available [place] [address] [facility] [place], [address], 11/12/2021 15:01:24 11/11/19 22 11/12/2021 LIPID PANEL , STAND JAMIE chol/HDLC ratio 6.1 (calc ) <5.0 high Not Available [place] [address] [place], [address], 11/12/2021 15:01:24 11/11/19 22 11/12/2021 LIPID PANEL , STAND JAMIE non HDL cholesterol 197 mg/dL _(maia c) <130 high For patie nts with diabe ericka plus 1 major ASCVD risk facto r, treat ing to a non-H DL-C goal of <100 mg/dL (LDL- C of <70 mg/dL ) is consi dered a thera peuti c optio n. Not Available [facility] [address] [place], [address], 11/12/2021 15:01:24 11/11/19 22 11/11/2021 hemog lobin A1C, rand mckenzie HgbA1C 7.4 Not Available [facility] [address] , [address], [place], [address], 11/11/2021 10:52:20 03/25/20 22 03/26/2022 HEMOG LOBIN [...] diabe ericka for child julián. Not Available [employer] [facility] [address] [place], [address], 03/26/2022 15:13:29 03/25/20 22 03/26/2022 VITAM IN [...] /MS is recom artie d: order code 32485 (juan ents >2yrs ). See Note 1 Note 1 For addit ional infor esteban archer e refer to http: //[facility] caroline Mendozaia gnost ics.c om/fa q/FAQ 199 (This link is being provi ded for infor cherise dee/ educcaleb lópez purpo ses only. ) Not Available [place] [address] [place], [address], 03/26/2022 15:13:29 03/25/20 22 03/26/2022 TSH TSH 6.89 mIU/L 0.40-4 .50 high Not Available [place] [address] [place], [address], 03/26/2022 15:13:28 03/25/20 22 03/26/2022 HEPAT IC FUNCT ION PANEL bilirubin, direct 0.2 mg/dL < or = 0.2 normal Not Available [place] [address] [place], [address], 03/26/2022 15:13:28 03/25/20 22 03/26/2022 HEPAT IC FUNCT ION PANEL bilirubin, indirect 0.6 mg/dL _(maia c) 0.2-1. 2 normal Not Available [place] [address] [place], [address], 03/26/2022 15:13:28 03/25/20 22 03/26/2022 HEPAT IC FUNCT ION PANEL alkaline phosphatase 49 U/L 36-130 normal Not Available [facility] [place] [address] [place], [address], 03/26/2022 15:13:28 03/25/20 22 03/26/2022 HEPAT IC FUNCT ION PANEL AST 18 U/L 10-40 normal Not Available [address], [address], 03/26/2022 15:13:28 03/25/20 22 03/26/2022 HEPAT IC FUNCT ION PANEL ALT 23 U/L 9-46 normal Not Available [address], [address], 03/26/2022 15:13:28 03/25/20 22 03/26/2022 HEPAT IC FUNCT ION PANEL protein, total 7.4 g/dL 6.1-8. 1 normal Not Available [address], [address], 03/26/2022 15:13:28 03/25/20 22 03/26/2022 HEPAT IC FUNCT ION PANEL albumin 4.9 g/dL 3.6-5. 1 normal Not Available [address], [address], 03/26/2022 15:13:28 03/25/20 22 03/26/2022 HEPAT IC FUNCT ION PANEL globulin 2.5 g/dL_ (calc ) 1.9-3. 7 normal Not Available [address], [address], 03/26/2022 15:13:28 03/25/20 22 03/26/2022 HEPAT IC FUNCT ION PANEL albumin/glob ulin ratio 2.0 (calc ) 1.0-2. 5 normal Not Available [address], [address], 03/26/2022 15:13:28 03/25/20 22 03/26/2022 HEPAT IC FUNCT ION PANEL bilirubin, total 0.8 mg/dL 0.2-1. 2 normal Not Available [address], [address], 03/26/2022 15:13:28 03/25/20 22 03/26/2022 BASIC METAB OLIC PANEL glucose 87 mg/dL 65-99 normal Fasti ng refer ence inter luanne Not Available [address], [address], 03/26/2022 15:13:28 03/25/20 22 03/26/2022 BASIC METAB OLIC PANEL urea nitrogen (BUN) 16 mg/dL 7-25 normal Not Available [address], [address], 03/26/2022 15:13:28 03/25/20 22 03/26/2022 BASIC METAB OLIC PANEL creatinine 1.22 mg/dL 0.60-1 .29 normal Not Available [address], [address], 03/26/2022 15:13:28 03/25/20 22 03/26/2022 BASIC METAB OLIC PANEL eGFR 76 mL/mi n/1.7 3m2 > or = 60 normal The eGFR is based on the CKD-E PI 2020 equat ion. To calcu late the new eGFR from a previ ous Creat inine or Cysta tin C resul t, go to https ://sea ceballos.sophia ray/oly yung s/ kdoqi /gfr% 5Fcal culat or Not Available [address], [address], 03/26/2022 15:13:28 03/25/20 22 03/26/2022 BASIC METAB OLIC PANEL BUN/creatini ne ratio not applic able (calc ) 6-22 Not Available [address], [address], 03/26/2022 15:13:28 03/25/20 22 03/26/2022 BASIC METAB OLIC PANEL sodium 141 mmol/ L 135-14 6 normal Not Available [address], [address], 03/26/2022 15:13:28 03/25/20 22 03/26/2022 BASIC METAB OLIC PANEL potassium 4.2 mmol/ L 3.5-5. 3 normal Not Available [address], [address], 03/26/2022 15:13:28 03/25/20 22 03/26/2022 BASIC METAB OLIC PANEL chloride 103 mmol/ L 98-110 normal Not Available [address], [address], 03/26/2022 15:13:28 03/25/20 22 03/26/2022 BASIC METAB OLIC PANEL carbon dioxide 31 mmol/ L 20-32 normal Not Available [address], [address], 03/26/2022 15:13:28 03/25/20 22 03/26/2022 BASIC METAB OLIC PANEL calcium 9.6 mg/dL 8.6-10 .3 normal Not Available [address], [address], 03/26/2022 15:13:28 03/25/20 22 03/26/2022 ALBUM IN, RANDO M URINE W/CRE ATINI NE creatinine, random urine 81 mg/dL 20-320 normal Not Available [address], [address], 03/26/2022 15:13:27 03/25/20 22 03/26/2022 ALBUM IN, RANDO M URINE W/CRE ATINI NE albumin, urine 0.5 mg/dL see note: normal Refer ence Range : Refer ence Range Not estab lishe d Not Available [address], [address], 03/26/2022 15:13:27 03/25/20 22 03/26/2022 ALBUM IN, [...] a diagn ostic categ ory. Not Available [address], [address], 03/26/2022 15:13:27 03/25/20 22 03/26/2022 LIPID PANEL , STAND JAMIE cholesterol, total 157 mg/dL <200 normal Not Available [address] [place], [address], 03/26/2022 15:13:27 03/25/20 22 03/26/2022 LIPID PANEL , STAND JAMIE HDL cholesterol 42 mg/dL > or = 40 normal Not Available [address], [address], 03/26/2022 15:13:27 03/25/20 22 03/26/2022 LIPID PANEL , STAND JAMIE triglyceride s 242 mg/dL <150 high If a non-f astin g speci men was colle cted, consi melissa repea t trigl yceri de testi ng on a fasti ng speci men if clini hitesh indic ated. Shawn mehta et al. J. of Clin. Lipid ol. 2015; 9:129 -169. Not Available [place] [address] [place], [address], 03/26/2022 15:13:27 03/25/20 22 03/26/2022 LIPID PANEL [...] 9): 2061- 2068 (http ://ed ucati on.Qu Puzzlium. com/f aq/FA Q164) Not Available [facility] [address] [place], [address], 03/26/2022 15:13:27 03/25/20 22 03/26/2022 LIPID PANEL , STAND JAMIE chol/HDLC ratio 3.7 (calc ) <5.0 normal Not Available [facility] [address] [place], [address], 03/26/2022 15:13:27 03/25/20 22 03/26/2022 LIPID PANEL , STAND JAMIE non HDL cholesterol 115 mg/dL _(maia c) <130 normal For patie nts with diabe ericka plus 1 major ASCVD risk facto r, treat ing to a non-H DL-C goal of <100 mg/dL (LDL- C of <70 mg/dL ) is consi dered a thera peuti c optio n. Not Available [employer] [facility] [address] [place], [address], 03/26/2022 15:13:27 09/05/20 22 09/06/2022 HEMOG LOBIN [...] diabe ericka for child julián. Not Available [employer] [facility] [address], [address], 09/06/2022 03:19:48 09/05/20 22 09/06/2022 T4, FREE T4, free 0.9 NG/dL 0.8-1. 8 normal Not Available [employer] [address], [address], 09/06/2022 03:19:48 09/05/20 22 09/06/2022 TSH W/REF COLTON TO FT4 TSH w/reflex to FT4 9.53 mIU/L 0.40-4 .50 high Not Available [employer] [address] [place], [address], 09/06/2022 03:19:47 09/05/20 22 09/06/2022 CBC (INCL UDES DIFF/ PLT) white blood cell count 5.8 thous and/u L 3.8-10 .8 normal Not Available [facility] [address], [address], 09/06/2022 03:19:47 09/05/20 22 09/06/2022 CBC (INCL UDES DIFF/ PLT) red blood cell count 5.64 alvaro on/uL 4.20-5 .80 normal Not Available [employer] [facility] [place] [address] [place], [address], 09/06/2022 03:19:47 09/05/20 22 09/06/2022 CBC (INCL UDES DIFF/ PLT) hemoglobin 16.9 g/dL 13.2-1 7.1 normal Not Available [address], [address], 09/06/2022 03:19:47 09/05/20 22 09/06/2022 CBC (INCL UDES DIFF/ PLT) hematocrit 50.6 % 38.5-5 0.0 high Not Available [address], [address], 09/06/2022 03:19:47 09/05/20 22 09/06/2022 CBC (INCL UDES DIFF/ PLT) MCV 89.7 fL 80.0-1 00.0 normal Not Available [address], [address], 09/06/2022 03:19:47 09/05/20 22 09/06/2022 CBC (INCL UDES DIFF/ PLT) MCH 30.0 pg 27.0-3 3.0 normal Not Available [address], [address], 09/06/2022 03:19:47 09/05/20 22 09/06/2022 CBC (INCL UDES DIFF/ PLT) MCHC 33.4 g/dL 32.0-3 6.0 normal Not Available [address], [address], 09/06/2022 03:19:47 09/05/20 22 09/06/2022 CBC (INCL UDES DIFF/ PLT) RDW 12.4 % 11.0-1 5.0 normal Not Available [address], [address], 09/06/2022 03:19:47 09/05/20 22 09/06/2022 CBC (INCL UDES DIFF/ PLT) platelet count 239 thous and/u L 140-40 0 normal Not Available [address], [address], 09/06/2022 03:19:47 09/05/20 22 09/06/2022 CBC (INCL UDES DIFF/ PLT) MPV 10.9 fL 7.5-12 .5 normal Not Available [address], [address], 09/06/2022 03:19:47 09/05/20 22 09/06/2022 CBC (INCL UDES DIFF/ PLT) absolute neutrophils 3323 cells /uL 1500-7 800 normal Not Available [address], [address], 09/06/2022 03:19:47 09/05/20 22 09/06/2022 CBC (INCL UDES DIFF/ PLT) absolute lymphocytes 1763 cells /uL 850-39 00 normal Not Available [address], [address], 09/06/2022 03:19:47 09/05/20 22 09/06/2022 CBC (INCL UDES DIFF/ PLT) absolute monocytes 516 cells /uL 200-95 0 normal Not Available [address], [address], 09/06/2022 03:19:47 09/05/20 22 09/06/2022 CBC (INCL UDES DIFF/ PLT) absolute eosinophils 157 cells /uL 15-500 normal Not Available [address], [address], 09/06/2022 03:19:47 09/05/20 22 09/06/2022 CBC (INCL UDES DIFF/ PLT) absolute basophils 41 cells /uL 0-200 normal Not Available [address], [address], 09/06/2022 03:19:47 09/05/20 22 09/06/2022 CBC (INCL UDES DIFF/ PLT) neutrophils 57.3 % normal Not Available [address], [address], 09/06/2022 03:19:47 09/05/20 22 09/06/2022 CBC (INCL UDES DIFF/ PLT) lymphocytes 30.4 % normal Not Available [address], [address], 09/06/2022 03:19:47 09/05/20 22 09/06/2022 CBC (INCL UDES DIFF/ PLT) monocytes 8.9 % normal Not Available [address], [address], 09/06/2022 03:19:47 09/05/20 22 09/06/2022 CBC (INCL UDES DIFF/ PLT) eosinophils 2.7 % normal Not Available [address], [address], 09/06/2022 03:19:47 09/05/20 22 09/06/2022 CBC (INCL UDES DIFF/ PLT) basophils 0.7 % normal Not Available [address], [address], 09/06/2022 03:19:47 09/05/20 22 09/06/2022 COMPR EHENS MIGNON METAB OLIC PANEL glucose 107 mg/dL 65-99 high Fasti ng refer ence inter luanne For someo ne witho ut known diabe ericka, a gluco se value betwe en 100 and 125 mg/dL is consi stent with predi abete s and shoul d be confi rmed with a follo w-up test. Not Available [address], [address], 09/06/2022 03:19:46 09/05/20 22 09/06/2022 COMPR EHENS MIGNON METAB OLIC PANEL urea nitrogen (BUN) 14 mg/dL 7-25 normal Not Available [address], [address], 09/06/2022 03:19:46 09/05/20 22 09/06/2022 COMPR EHENS MIGNON METAB OLIC PANEL creatinine 1.18 mg/dL 0.60-1 .29 normal Not Available [employer] [address], [address], 09/06/2022 03:19:46 09/05/20 22 09/06/2022 COMPR EHENS [...] kdoqi /gfr% 5Fcal culat or Not Available [place] [address] [place], [address], 09/06/2022 03:19:46 09/05/20 22 09/06/2022 COMPR EHENS MIGNON METAB OLIC PANEL BUN/creatini ne ratio not applic able (calc ) 6-22 Not Available [address], [address], 09/06/2022 03:19:46 09/05/20 22 09/06/2022 COMPR EHENS MIGNON METAB OLIC PANEL sodium 140 mmol/ L 135-14 6 normal Not Available [employer] [address], [address], 09/06/2022 03:19:46 09/05/20 22 09/06/2022 COMPR EHENS MIGNON METAB OLIC PANEL potassium 4.0 mmol/ L 3.5-5. 3 normal Not Available [employer] [address], [address], 09/06/2022 03:19:46 09/05/20 22 09/06/2022 COMPR EHENS MIGNON METAB OLIC PANEL chloride 105 mmol/ L 98-110 normal Not Available [address], [address], 09/06/2022 03:19:46 09/05/20 22 09/06/2022 COMPR EHENS MIGNON METAB OLIC PANEL carbon dioxide 28 mmol/ L 20-32 normal Not Available [address], [address], 09/06/2022 03:19:46 09/05/20 22 09/06/2022 COMPR EHENS MIGNON METAB OLIC PANEL calcium 9.3 mg/dL 8.6-10 .3 normal Not Available [address], [address], 09/06/2022 03:19:46 09/05/20 22 09/06/2022 COMPR EHENS MIGNON METAB OLIC PANEL protein, total 7.3 g/dL 6.1-8. 1 normal Not Available [address], [address], 09/06/2022 03:19:46 09/05/20 22 09/06/2022 COMPR EHENS MIGNON METAB OLIC PANEL albumin 4.7 g/dL 3.6-5. 1 normal Not Available [address], [address], 09/06/2022 03:19:46 09/05/20 22 09/06/2022 COMPR EHENS MIGNON METAB OLIC PANEL globulin 2.6 g/dL_ (calc ) 1.9-3. 7 normal Not Available [address], [address], 09/06/2022 03:19:46 09/05/20 22 09/06/2022 COMPR EHENS MIGNON METAB OLIC PANEL albumin/glob ulin ratio 1.8 (calc ) 1.0-2. 5 normal Not Available [address], [address], 09/06/2022 03:19:46 09/05/20 22 09/06/2022 COMPR EHENS MIGNON METAB OLIC PANEL bilirubin, total 0.8 mg/dL 0.2-1. 2 normal Not Available [address], [address], 09/06/2022 03:19:46 09/05/20 22 09/06/2022 COMPR EHENS MIGNON METAB OLIC PANEL alkaline phosphatase 50 U/L 36-130 normal Not Available [facility] [address], [address], 09/06/2022 03:19:46 09/05/20 22 09/06/2022 COMPR EHENS MIGNON METAB OLIC PANEL AST 24 U/L 10-40 normal Not Available [address], [address], 09/06/2022 03:19:46 09/05/20 22 09/06/2022 COMPR EHENS MIGNON METAB OLIC PANEL ALT 32 U/L 9-46 normal Not Available [address], [address], 09/06/2022 03:19:46 09/05/20 22 09/06/2022 LIPID PANEL , STAND JAMIE cholesterol, total 155 mg/dL <200 normal Not Available [address], [address], 09/06/2022 03:19:46 09/05/20 22 09/06/2022 LIPID PANEL , STAND JAMIE HDL cholesterol 35 mg/dL > or = 40 low Not Available [address], [address], 09/06/2022 03:19:46 09/05/20 22 09/06/2022 LIPID PANEL , STAND JAMIE triglyceride s 257 mg/dL <150 high If a non-f astin g speci men was colle cted, consi melissa repea t trigl yceri de testi ng on a fasti ng speci men if clini hitesh indic ated. Shawn mehta et al. J. of Clin. Lipid ol. 2015; 9:129 -169. Not Available [facility] [facility] [address] [place] [address], [address], 09/06/2022 03:19:46 09/05/20 22 09/06/2022 LIPID PANEL [...] 2061- 2068 (http ://ed ucati on.Qu estDi Proterro. com/f aq/FA Q164) Not Available [facility] [address] [place] [address], [address], 09/06/2022 03:19:46 09/05/20 22 09/06/2022 LIPID PANEL , STAND JAMIE chol/HDLC ratio 4.4 (calc ) <5.0 normal Not Available [facility] [address] [place], [address], 09/06/2022 03:19:46 09/05/20 22 09/06/2022 LIPID PANEL , STAND JAMIE non HDL cholesterol 120 mg/dL _(maia c) <130 normal For patie nts with diabe ericka plus 1 major ASCVD risk facto r, treat ing to a non-H DL-C goal of <100 mg/dL (LDL- C of <70 mg/dL ) is krishna sparks n. Not Available [facility] [facility] [address] [address], [place], [address], 09/06/2022 03:19:46 10/02/19 23 10/01/2022 stres s echoc ardio gram No observ ation record ed. [id number] [facility] [address], [place], [address], 11/13/2022 00:29:04 Result Notes None recorded. Problems Name Problem SNOMED Code Status Onset Date Resolution Date Notes Provider Name and Address Organization Details Recorded Time Dyslipidemia 709228793 Active Not Available [facility] 3 02:05:30 Pain in limb 98931273 Active Not Available [facility] 3 02:05:31 Non-alcoholic fatty liver 442447642 Active 2017 Not Available [facility] 3 02:05:30 Myocardial infarction 08622156 Active 2017 Not Available [facility] 3 02:05:30 Hypertensive disorder 81712019 Active 2017 Not Available [facility] 3 02:05:30 History of myocardial infarction 733132414 Active 2020 Not Available [facility] 3 02:05:30 Hypothyroidis m 82345406 Active 2020 Not Available [facility] 3 02:05:31 Hyperlipidemi a 88636888 Active 2020 Not Available [facility] 3 02:05:31 Diabetes mellitus 72111922 Active 2020 Not Available [facility] 3 02:05:31 Sleep apnea 65010926 Active 2020 Not Available [facility] 3 02:05:31 Vitamin D deficiency 84256664 Active 2020 Not Available [facility] 3 02:05:30 Type 2 diabetes mellitus without complication 290042859 Active 2021 Not Available [facility] 3 02:05:30 Ingrowing toenail 178562698 Active 2021 Not Available [facility] 3 02:05:30 Migraine 53215768 Active [address] Not [address] [facility] 3 02:05:30 Tobacco user 787448741 Active 2021 Not Available [facility] 3 02:05:30 Uncontrolled type 2 diabetes mellitus 127691706 Active 2021 Not Available [facility] 3 02:05:31 Hypertriglyce ridemia 870277538 Active 2021 Not Available [facility] 3 02:05:30 Type 2 diabetes mellitus 50897880 Active 2022 Not Available [facility] 3 02:05:31 Gastroesophag eal reflux disease 302179169 Active 2022 Not Available [facility] 3 02:05:30 Insomnia 472418625 Active 2022 Not Available [facility] 3 02:05:30 Mood swings 78267923 Active 2022 Not Available [facility] 3 02:05:30 Problem Notes None recorded. Procedures Surgical History Date Name Laterality Status Provider Name and Address Organization Details Recorded Time Neck Surgeries completed Not Available [facility] [facility] [place] 11/13/2022 00:26:05 Appendectomy completed Not Available [facility] 11/13/2022 00:26:05 Vasectomy completed Not Available [facility] 0 11/13/2022 00:26:05 fit complete upper and lower dentures completed Not Available [facility] 11/13/2022 00:26:05 Imaging Results None recorded. Procedure [...] % 99 % 69 /min 96.2 [degF] 942109. 28 g 134/86 mm[Hg] Not Available [facility] 3 00:26:51 Date Recorded Body height Body mass index (BMI) Body weight Body temperature Heart rate Respiratory rate Oxygen saturation Oxygen saturation in Arterial blood by Pulse oximetry Pain severity - 0-10 verbal numeric rating [Score] - Reported Systolic And Diastolic Provider Name and Address Organization Details Last Updated DateTime 3 177.8 cm 33.5 kg/m2 801721. 82 g 97.7 [degF] 82 /min 82 /min 96 % 96 % 4 180/100 mm[Hg] Kaela Payton RN [place] - [facility] 3 16:49:09 Date Recorded Body mass index (BMI) Body height Oxygen saturation Oxygen saturation in Arterial blood by Pulse oximetry Heart rate Body temperature Body weight Systolic And Diastolic Provider Name and Address Organization Details Last Updated DateTime 2 32.4 kg/m2 177.8 cm 97 % 97 % 69 /min 96.3 [degF] 241687. 88 g 140/84 mm[Hg] Not Available [facility] 3 00:26:51 Date Recorded Body mass index (BMI) Body height Oxygen saturation Oxygen saturation in Arterial blood by Pulse oximetry Heart rate Body temperature Body weight Systolic And Diastolic Provider Name and Address Organization Details Last Updated DateTime 2 33.7 kg/m2 177.8 cm 98 % 98 % 79 /min 97.7 [degF] 066465. 21 g 142/90 mm[Hg] Not Available [facility] 3 00:26:51 Date Recorded Body mass index (BMI) Body height Oxygen saturation Oxygen saturation in Arterial blood by Pulse oximetry Heart rate Respiratory rate Body temperature Body weight Systolic And Diastolic Provider Name and Address Organization Details Last Updated DateTime 2 34 kg/m2 177.8 cm 96 % 96 % 71 /min 16 /min 97.7 [degF] 402434. 39 g 134/86 mm[Hg] Not Available [facility] 3 00:26:51 Social History Question Answer Notes LastModified by Organizat ion Details LastModified Time Tobacco Smoking Status Current Every Day Smoker Not Available [facility] 11/13/2022 00:25:54 Do You Have An Advance Directive? No [id number] Information not available 11/13/2022 Is Blood Transfusion Acceptable In An Emergency? Yes Information not available 12/23/2022 What Is Your Level Of Caffeine Consumption? Moderate [id number] Information not available 11/13/2022 What Is Your Code Status? Full Code Information not available 12/23/2022 In The 14 Days Before Symptom Onset, Have You Had Close Contact With A Laboratory-confi rmed COVID-19 While That Case Was Ill? No [id number] Information not available 11/13/2022 In The 14 Days Before Symptom Onset, Have You Had Close Contact With A Person Who Is Under Investigation For COVID-19 While That Person Was Ill? No [id number] Information not available 11/13/2022 What Type Of Diet Are You Following? REGULAR MIGRATION.72686 [id number] Information not available 11/13/2022 What Is The Highest Grade Or Level Of School You Have Completed Or The Highest Degree You Have Received? [id number] MIGRATION.66794 87985 Information not available 11/13/2022 Have There Been Any Changes To Your Family Or Social Situation? No MIGRATION.03982 [id number] Information not available 11/13/2022 Do You Use Insect Repellent Routinely? Yes [id number].[id number] Information not available 11/13/2022 Where Do You Live? [facility] MIGRATION.90855 76956 Information not available 11/13/2022 Do You Have A Medical Power Of Charter Coach Driver? No Information not available 12/23/2022 Do You Have Any Pets? Yes Dogs MIGRATION.70298 [id number] Information not available 11/13/2022 What Is Your Relationship Status? MIGRATION.[id number] Information not available 11/13/2022 Do You Use Your Seat Belt Or Car Seat Routinely? Yes Information not available 12/23/2022 Do You Have Smoke And Carbon Monoxide Detectors In Your Home? Yes MIGRATION.51442 28076 Information not available 11/13/2022 Are You Passively Exposed To Smoke? Yes MIGRATION.58835 77739 Information not available 11/13/2022 Are There Any Smokers In Your House? Yes MIGRATION.63327 75215 Information not available 11/13/2022 How Much Tobacco Do You Smoke? 0.5 PPD MIGRATION.29876 70746 Information not available 11/13/2022 Do You Participate In Social Media? No Information not available 12/23/2022 Do You Use Sunscreen Routinely? Yes MIGRATION.84073 94488 Information not available 11/13/2022 Have You Recently Traveled Abroad? No MIGRATION.09914 18963 Information not available 11/13/2022 Sex: Male Functional Status Question Answer Note LastModified by Organizat ion Details LastModified Time Do you use any illicit or recreational drugs? No MIGRATION.[id number] 9198 Information not available 11/13/2022 What is your level of alcohol consumption? 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 [id number] Information not available 11/13/2022 Family History Relationship Description Onset Age of this Age Resolved Age Notes LastModified by Organization Details LastModified Time Unspecified Relation Diabetes mellitus [id number] Not available 11/13/2022 00:26:06 Medical History Condition Response DIABETES, TYPE Y Immunizations Vaccine Type Date Status Note Provider Nam e and Address Organization Details Recorded Time Tdap 09/03/2022 completed Not Available [facility] 12/30/2022 02:05:31 Past Encounters Encounter ID Performer Location Encounter Start Date Encounter Closed Date Diagnosis/Indication Diagnosis SNOMED-CT Code Diagnosis ICD10 Code Diagnosis Note [id number] Steven Luu MD [facility] Joanie fairchild [address] [place] [address] 09/04/2021 00:00:00 09/04/2021 13:35:35 [id number] [facility] [place] [place] [address] [place] [address] 09/26/2021 00:00:00 09/27/2021 09:31:08 [id number] Steven Luu MD [facility] Family [facility] [address] [place] [address] 10/03/2021 00:00:00 10/03/2021 16:33:21 [id number] [facility] Podiatry [place] [address] [place] [address] 11/11/2021 00:00:00 11/11/2021 13:21:23 [id number] S[facility] Family [facility] [address] [place] [address] 11/11/2021 00:00:00 11/11/2021 11:14:21 [id number] Steven Luu MD [facility] [address] [place] [address] 03/25/2022 00:00:00 03/25/2022 11:14:48 [id number] Steven Luu MD [facility] [address] [place] [address] 06/26/2022 00:00:00 06/26/2022 16:37:28 [id number] Demetrio Lindsey MD [address] [address] 09/03/2022 00:00:00 09/03/2022 18:24:15 [id number] Kaela Trinidad NP [address] [address] 12/23/2022 16:06:48 12/23/2022 17:35:42 Tobacco user [id number] Z72.0 09/15 ppd. Cessation encouraged and recommende d. Non-alcoho lic fatty liver [id number] K76.0 Trying to eat low fat options. Doesn't eat Fatty meals. Type 2 june betes mellitus without complication 172210292 E11.9 Metformin ER 500 mg po daily on hold. Having low sugars. If improved after being off the metformin, will not plan to restart. Vitamin D deficiency 347 05694 E55.9 Vit d good 03/2022 good. Pt eats dairy routinely. Hypertensive disorder 38 757154 I10 Seeing cardiology - Dr. Painter. Recent increase in losartan to 100 mg. BP 180/110, 150/100HCT Z 25 mg po daily.Losa rtan 100 mg po daily. Hypothyroidism 00076637 E03.9 TSh high, increase Levothyrox ine from 137 mcg to 150 mcg. Labs in 3 mo, February 2023.Synth roid 150 mcg po daily. Hyperlipidemia 37656993 E78.5 Rosuvastat in 40 mg po nightly. Sleep apnea 48341345 G47 .30 CPAP nightly. No fu scheduled. Will get new referral to sleep specialist per [place]. [facility]. Gastroesop hageal reflux disease 161183801 K21.9 Pantoprazo le 40 mg po daily. Diet mods. Migraine 80254859 G43.90 9 Rizatripta n 10 mg prn. Insomnia 123605906 G47.0 0 Zolpidem 10 mg po nightly. Mood swings 54618120 R45 .86 Short temper. Declines SSRI/SNRI. Referred [...] Member ID Guarantor Name 12/23/2022 1 [employer] [id number] Rosendo Ley [id number] Rosendo Ley 01/07/2024 1 [place] [id number] Rosendo Ley [id number] Rosendo Ley Notes Date Note Type Note [...] off and was told it was low. [place] shaky. Metformin started after 11/18/22 labs. States no symptoms prior to being on metformin. Fasting 120-122.Vit d def- Vit d supplement not taken, labs were good in November 2022.Sleep apnea- CPAP not sleeping well. Not sure cause. Hard time shutting down.tobacco use- 1/2 ppd same as before.NAFL-Low fat diet generally.Headach e- still getting every few days. Did see sand conditioner machine- did get injections into plantar fascia. Returns in a few weeks. Injections did help. no diabetic neuropathy. Has short temper. Kaela Trinidad, TYE [address] [facility], [facility] [address], [place], [address], [place] - [facility] [employer] 12/23/2022 17:31:44
[2025-04-07] MEDS: OXYMETAZOLINE HCL 0.05% NAS 15 ML BTL (*BKC) 2 SPRAY NASAL ×3 (06:05→06:15)
[2025-04-07] MEDS: ACETAMINOPHEN 500 MG TABLET 1000 MG PO (06:30)
[2025-04-07] MEDS: LACTATED RINGERS 1,000 ML 30 ML IV CONT ×2 (06:45→12:00)
--- NOTE | 2025-04-07 06:45 | P.HPUP_ITS ---
History and Physical Update Update Date/Time: 04/07/25 06:45 History and Physical has been reviewed, including an updated exam of the patient. There are NO changes in the patient's condition. Risks, benefits, and alternatives have been discussed and questions answered. Patient agrees to proceed with procedure. I have discussed with the patient surgical options which will include: Septoplasty-bilateral inferior turbinates reduction (submucous reduction)- bilateral maxillary antrostomy-bilateral anterior ethmoidectomy-left frontal sinustomy with balloon dilation
--- NOTE | 2025-04-07 07:11 | P.PNAN_ITS ---
Anes - Initial Pre Proc Eval Procedure: Operation Date: 04/07/25 07:30 Proposed Procedures p Image Guided Bilateral Inferior Turbinate Reduction with Submucous Resection, Bilateral Maxillary Antrostomy, Bilateral Anterior Total Ethmoidectomy, Left Frontal Sinusotomy with Balloon Dilation, - Mal Moura MD s Septoplasty - Mal Moura MD Date/Time: 04/07/25 07:11 Surgeon: Mal Moura MD Pre Op Diagnosis: chron sinusit, deviat septum, hypertrop nasal tu Patient Data Age: 44 Gender: M Height: 1.78 m Weight: 88.6 kg Allergies Allergy/AdvReac Type Severity Reaction Status Date / Time lidocaine Allergy Severe Swelling Verified 04/04/25 13:20 Home Medications ?Medication ?Instructions ?Recorded ?Confirmed ?Type losartan 100 mg tablet 100 mg PO DAILY 04/20/24 04/04/25 History nifedipine 30 mg tablet,extended 30 mg PO DAILY 04/20/24 04/04/25 History release rosuvastatin 40 mg tablet 40 mg PO DAILY 04/20/24 04/04/25 History omeprazole 20 mg capsule,delayed 20 mg PO BID #180 caps 06/02/24 04/04/25 Rx release levothyroxine 137 mcg tablet 137 mcg PO DAILY #90 tabs 01/19/25 04/04/25 Rx alprazolam 0.5 mg tablet 0.5 mg PO BID #60 tabs 03/07/25 04/04/25 Rx tirzepatide 5 mg/0.5 mL See Rx Instructions .Route 03/07/25 04/04/25 Rx subcutaneous pen injector .COMPLEX #2 mL (Joel) prednisone 20 mg tablet 20 mg PO DAILY chronic seasonal 03/08/25 04/04/25 Rx allergic rhinitis #14 tabs chlorthalidone 25 mg tablet 25 mg PO DAILY 03/22/25 04/04/25 History ubrogepant 100 mg tablet (Ubrelvy) 100 mg PO ONCE PRN migraine 03/22/25 04/04/25 History headache ezetimibe 10 mg tablet See Rx Instructions .Route 03/29/25 04/04/25 Rx .COMPLEX #90 tabs doxycycline hyclate 100 mg capsule 100 mg PO DAILY 21 days #22 caps 04/03/25 04/04/25 Rx methylprednisolone 4 mg tablets in See Rx Instructions PO PER PKG DIR 04/03/25 04/04/25 Rx a dose pack (Medrol (Jacob)) #21 ea Laboratory Tests 04/07/25 06:30 POC Capillary Glucose 130 H mg/dl (65-105) Patient hx anesthesia problems: none Family hx anesthesia problems: none Results Review: All pre-operative results and documents have been reviewed as part of the pre- operative evaluation. [facility] Past Medical History Medical History Disorder of thyroid CVA (cerebral vascular accident) HTN (hypertension) Heart disease Migraine Headache Chronic GERD Diabetes Family History Family History Father Diabetes mellitus Hypertension Heart disease Cerebrovascular accident Mother Hypertension Depression Heart disease Disorder of thyroid Grandparent Asthma Diabetes mellitus Hypertension Depression Heart disease Cerebrovascular accident Disorder of thyroid Social History Social History Years smoked: 30 Smoking status: Current every day smoker Tobacco type: cigarettes Alcohol intake: current Drinks per week: 6 Substance use: never Substance use type: does not use Do You Feel Safe in your Home?: Yes Lack of Transportation: No Lack of Food: Never True Current Housing: I Have Housing Concerned About Future Housing: No Difficulty Paying Gas/Electric Bills: No Difficulty Paying for Meds: No Currently Unemployed: No Education: Bachelor's Degree Difficulty w/ Childcare or Family Care: No Living arrangements: with family Occupation/Education: occupation Additional occupation/education comments: [employer] Gender identity (if verbalized by the patient): Male Spiritual care concerns: No Agree to blood products: Yes Anes - Eval Final PreProcedure Day of Procedure 04/07/25 07:11 Patient weight: normal Lungs: normal air movement Airway: Mallampati scale class II and special considerations (Upper and lower dentures. ) Neurological: alert and oriented Last oral intake: >/= 8 hours ASA classification: III Emergent: no Anesthetic plan: proceed Anesthesia type and monitoring: general ETT and standard monitoring Results Review: All pre-operative results and documents have been reviewed as part of the pre- operative evaluation. HTN, hyperlipidemia, hypothyroidism, DM fsbs 130, anxiety. Pt had a CVA 2017 deemed due to stress, [place] 2017. Cardiac cath 2025 nml according to pt (for surveillance only). Informed Consent: The patient's anesthetic plan and its attendant risks and benefits were discussed with the patient/family/POA. Questions were solicited and answers provided to the satisfaction of the patient/family/POA.
--- NOTE | 2025-04-07 07:36 | PHAR ---
LIDOCAINE PULLED FROM OR PYXIS. PATIENT LISTS AN ALLERGY TO LIDOCAINE. TALKED TO MARIMA ON OR, SHE WILL LET THEM KNOW.
[2025-04-07] MEDS: ceFAZolin 2 GM in SODIUM CHLORIDE 0.9% IV 50 ML 100 ML IVPB (07:52)
[2025-04-07] MEDS: COCAINE HCL (*CRX) 4% TOP SOLN 4 ML VIAL 1 APPLIC TOPICAL (08:33)
[2025-04-07] MEDS: EPINEPHrine HCL INJ 1 MG/ML AMPUL IRRIGATION (08:34)
--- NOTE | 2025-04-07 10:00 | SUR.OPER ---
Culture x2 sent with SANDEEP Sorto and received in microbiology by Deborah. In addition to aerobic and gram stain which was ordered, we also indicated to microbiology that we need anaerobic, as well
[2025-04-07] MEDS: TRIAMCINOLONE ACET INJ 40 MG/ML VIAL IM (11:37)
--- NOTE | 2025-04-07 11:56 | P.OP_ITS ---
Procedure Note - Detailed Date of Procedure 04/07/25 Pre-op Diagnosis chronic sinusitis , deviated septum, hypertrophy of nasal turbinates Post-op Diagnosis Same Procedure Performed ? Endoscopic septoplasty ? Nasal endoscopy with maxillary antrostomy bilaterally. ? Nasal endoscopy with ethmoidectomy, total (anterior and posterior) bilaterally. ? Nasal endoscopy with frontal sinusotomy with balloon dilation bilaterally. ? Bilateral inferior turbinate reduction (intramural (submucosal) ablation of the inferior turbinate.) ? Therapeutic fracture of the inferior turbinates bilaterally. Surgeon Mal Moura MD Anesthesia General Indications chronic sinusitis septal nasal deviation hypertrophy of nasal turbinates Description of Procedure DESCRIPTION OF PROCEDURE: The patient was seen in the preoperative area, informed consent was checked and confirmed. The patient was taken to the operating room, sedated and placed under general anesthesia with an endotracheal tube . Eyes were taped and were prepped and draped in the usual sterile fashion. The nose was examined, and the left anterior septum was injected with saline with 1:100,000 epinephrine. [place] Border incision was made and a mucoperichondrial flap was elevated to expose the quadrangular cartilage and bony septum. Incision was then made anteriorly on the quadrangular cartilage to elevate the contrala teral mucoperichondrial flap. The deviated quadrangular cartilage was excised with a Bennie knife. At least 1 cm of dorsal and caudal strut of quadrangular was left in place. We resected the deviated bony septum with a Birdseye-Alvarez and a pituitary forceps. After adequate resection of the posterior-inferior bony septum, the mucoperichondrial Flap was laid back in anatomic position.04 vicryl was used to close the incision ,reyes splint were sutured to the nasal septum using 04 vicryl suture .quilting sutures were placed in the nasal septum DESCRIPTION OF PROCEDURE: The patient was seen in the preoperative area, informed consent was checked and confirmed. The patient was taken to the operating room, sedated and placed under general anesthesia with an endotracheal tube . Eyes were taped and were prepped and draped in the usual sterile fashion. Findings:dehiscent left uncinate ,polyps in the ethmoid sinuses We proceeded to the endoscopic sinus procedure starting on the right side. The agger nasi area was injected with saline with 1:100,000 epinephrine. The body of the middle turbinate was injected with saline with 1:100,000 epinephrine. The middle turbinate was gently medialized and the uncinectomy was performed with a pediatric Og backbiter and the uncinectomy was completed with a shaver from the inferior-posterior attachment to the superior anterior attachment. The ethmoidectomy was performed by shaving the anterior ethmoid bulla and care was taken to protect the skull base in the lamina papyracea. Maxillary antrum was re-examined with a 30-degree scope. A ball probe was passed into the antrum and was further widened with a backbiter in the anterior- inferior aspect.right posterior ethmoidectomy was done through the inferio- medial quadrant of basal lamella ,posterior ethmoid cells were removed from anterior to posterior direction and from inferior to superior taking care to preserve skull base and lamina papyracea.then ,lateralization of the middle turbinate and shaving,opening of the posterior corridor and shaving the posterior part of the middle turbinate to widen the superior meatus Agger Nasi cells on right were opened with the shaver and 30-degree scope. Frontal sinus ostium was identified with lighted guidewire. Then the balloon was passed into the frontal sinus and the ostia was adequately dilated. Shaver was used to debride excess tissue to clear the frontal recess. Pledgets were placed in the ethmoid cavity. and we proceeded to the left side. The agger nasi area was injected with saline with 1:100,000 epinephrine, Middle turbinate was gently medialized. Uncinectomy was performed with a pediatric Og backbiter. An uncinectomy was performed by shaving the uncinate from its posterior-inferior attachment to the anterior-superior attachment. Then, ethmoidectomy was performed by shaving the ethmoid bulla with care taken to protect the skull base and the lamina papyracea. Then, a 30-degree scope was used, and the ball probe was passed into the maxillary antrum and was further widened inferiorly with pediatric Og backbiter. and i proceeded to the left side : The agger nasi area was injected with saline with 1:100,000 epinephrine. The body of the middle turbinate was injected with saline with 1:100,000 epinephrine. The middle turbinate was gently medialized and the uncinectomy was performed with a pediatric Go backbiter and the uncinectomy was completed with a shaver from the inferior-posterior attachment to the superior anterior attachment. The ethmoidectomy was performed by shaving the anterior ethmoid bulla and care was taken to protect the skull base in the lamina papyracea. Maxi llary antrum was re-examined with a 30-degree scope. A ball probe was passed into the antrum and was further widened with a backbiter in the anterior- inferior aspect.left posterior ethmoidectomy was done through the inferio- medial quadrant of basal lamella ,posterior ethmoid cells were removed from anterior to posterior direction and from inferior to superior taking care to preserve skull base and lamina papyracea.then ,lateralization of the middle turbinate and shaving,opening of the posterior corridor and shaving the posterior part of the middle turbinate to widen the superior meatus Agger Nasi cells on left were opened with the shaver and 30-degree scope. Frontal sinus ostium was identified with lighted guidewire. Then the balloon was passed into the frontal sinus and the ostia was adequately dilated. Shaver was used to debride excess tissue to clear the frontal recess. We proceeded with submucosal inferior turbinate reduction, starting on the right side, a stab incision was made anterior mucosa of inferior turbinate. Submucosal pocket was created along the length of the inferior turbinate and the microdebrider blade 2mm thick was introduced anteriorly and into the whole submucosal pocket. Microdebrider was then used to remove the hypertrophied bony parts of anterior turbinate head and soft tissue with the outer layer intact. The residual inferior turbinate was then out fractured using Boies elevator. We proceeded to the left side. A stab incision was made on the anterior mucosa of inferior turbinate. Submucosal pocket was created along the length of the inferior turbinate and the microdebrider blade 2 mm thick was introduced anteriorly and into the whole submucosal pocket. Microdebrider was then used to remove the hypertrophied bony parts of anterior turbinate head and soft tissue with the outer layer intact. The residual inferior turbinate was then out fractured using Boies elevator. Pledgets were removed from ethmoid cavities, PosiSep X BAM Hemostat Dressing sponges were placed in ethmoid cavities bilaterally and infiltrated with a mixture of kenalog and cefazolin. The nose was then suctioned clean and at this point the care of the patient was then transferred to the anesthesiologist where the patient emerged from general anesthesia without complication. Estimated Blood Loss 30 (ml) Packing Yes (absorbable packing +non absorbable packing) Complications No immediate complications Condition Stable Disposition PACU [facility] Billing Surgery - Charge Forward: Surgery Billing
[2025-04-07] MEDS: fentaNYL CITRATE INJ (*CRX) 100 MCG/2 ML VIAL 25 MCG IV PUSH ×4 (12:18→12:43)
[2025-04-07] MEDS: oxyCODONE HCL (*CRX) 5 MG TAB IR PO (13:36)
== END 2025-04-07 14:10 | disposition home or self-care (01) ==
PROVIDERS: PCP Nurse Practitioner Adult Health; Visit Provider Otolaryngology Otolaryngology/Facial Plastic Surgery
PROC: (CPT 31256; principal; 2025-04-07 07:30)
PROC: (CPT 30520; 2025-04-07 07:30)
DX: J32.9 Chronic sinusitis, unspecified (principal); J34.3 Hypertrophy of nasal turbinates; J34.2 Deviated nasal septum; E11.9 Type 2 diabetes mellitus without complications; F17.210 Nicotine dependence, cigarettes, uncomplicated
CPT/HCPCS: 31256; 31253; 61782; 30520; 30140; 82948; J0690; A9270; C1726; J0166; J1100; J2003; J2004; J2250; J2405; J2704; J2919; J3010; J3301; J7050; J7120

== ENCOUNTER 2025-04-07 19:33 | Emergency (ER) | payer BC, SELFPAY ==
--- OUTSIDE RECORDS SUMMARY | 2025-04-07 19:36 | XMS_ITS | Clinical Summary ---
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 Not on file Not on file Last Filed Vital Signs Vital Sign Reading Time Taken Comments Blood Pressure 127/93 09/03/2021 9:34 PM SPRAY APPLICATOR Pulse 92 09/03/2021 9:34 PM SPRAY APPLICATOR Temperature 36.3 C (97.4 F) 09/03/2021 5:04 PM SPRAY APPLICATOR Respiratory Rate 18 09/03/2021 9:34 PM SPRAY APPLICATOR Oxygen Saturation 98% 09/03/2021 9:34 PM SPRAY APPLICATOR Inhaled Oxygen Concentration - - Weight 99.8 kg (220 lb) 09/03/2021 5:04 PM SPRAY APPLICATOR Height 177.8 cm (5' 10) 09/03/2021 5:04 PM SPRAY APPLICATOR Body Mass Index 31.57 09/03/2021 5:04 PM SPRAY APPLICATOR Plan of Treatment Health Maintenance Due Date [...] patient's age to complete this topic Insurance [facility] Care Teams Architecture Faculty Member Relationship Specialty Start Date End Date Provider, None [place] PCP - General 09/03/21
[2025-04-07 19:39] VITALS: BP 151/101; PULSE 105; RESP 20; TEMP 37.1; O2SAT 96
--- OUTSIDE RECORDS SUMMARY | 2025-04-08 00:04 | XMS_ITS | Clinical Summary ---
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 Not on file Last Filed Vital Signs Vital Sign Reading Time Taken Comments Blood Pressure 127/93 09/03/2021 9:34 PM SMOOTH STUCCO RESURFACER Pulse 92 09/03/2021 9:34 PM SMOOTH STUCCO RESURFACER Temperature 36.3 C (97.4 F) 09/03/2021 5:04 PM SMOOTH STUCCO RESURFACER Respiratory Rate 18 09/03/2021 9:34 PM SMOOTH STUCCO RESURFACER Oxygen Saturation 98% 09/03/2021 9:34 PM SMOOTH STUCCO RESURFACER Inhaled Oxygen Concentration - - Weight 99.8 kg (220 lb) 09/03/2021 5:04 PM SMOOTH STUCCO RESURFACER Height 177.8 cm (5' 10) 09/03/2021 5:04 PM SMOOTH STUCCO RESURFACER Body Mass Index 31.57 09/03/2021 5:04 PM SMOOTH STUCCO RESURFACER Plan of Treatment Health Maintenance Due Date [...] patient's age to complete this topic Insurance [facility] Care Teams Workforce Management Manager Relationship Specialty Start Date End Date Provider, None [place] PCP - General 09/03/21
--- NOTE | 2025-04-08 00:05 | ED.EPISTAXIS ---
HPI - Epistaxis General Chief complaint: Epistaxis Stated complaint: nose bleed, post op Time Seen by Provider: 04/07/25 23:52 Source: patient Mode of arrival: ambulatory Limitations: no limitations History of Present Illness HPI Narrative: This is a 44 year old male that presents to the ER for nosebleed. Patient underwent septoplasty today. Reports he felt a blood clot go down the back of his throat and this caused him to vomit. Reports he immediately developed a nosebleed. He is not on anticoagulation. Related Data Home Medications ?Medication ?Instructions ?Recorded ?Confirmed ?Last Taken ?Type losartan 100 mg tablet 100 mg PO DAILY 04/20/24 04/04/25 03/23/25 History nifedipine 30 mg tablet,extended 30 mg PO DAILY 04/20/24 04/04/25 03/23/25 History release rosuvastatin 40 mg tablet 40 mg PO DAILY 04/20/24 04/04/25 03/23/25 History chlorthalidone 25 mg tablet 25 mg PO DAILY 03/22/25 04/04/25 03/23/25 History ubrogepant 100 mg tablet (Ubrelvy) 100 mg PO ONCE PRN migraine 03/22/25 04/04/25 Unknown History headache Allergies Allergy/AdvReac Type Severity Reaction Status Date / Time lidocaine Allergy Severe Swelling Verified 04/07/25 19:45 Review of Systems Review of Systems: All systems reviewed & are unremarkable except as noted in HPI and below PMFSH Past Medical History Medical History Disorder of thyroid CVA (cerebral vascular accident) HTN (hypertension) Heart disease Migraine Headache Chronic GERD Diabetes Family History Family History Father Diabetes mellitus Hypertension Heart disease Cerebrovascular accident Mother Hypertension Depression Heart disease Disorder of thyroid Grandparent Asthma Diabetes mellitus Hypertension Depression Heart disease Cerebrovascular accident Disorder of thyroid Social History Social History Years smoked: 30 Smoking status: Current every day smoker Tobacco type: cigarettes Alcohol intake: current Drinks per week: 6 Substance use: never Substance use type: does not use Do You Feel Safe in your Home?: Yes Lack of Transportation: No Lack of Food: Never True Current Housing: I Have Housing Concerned About Future Housing: No Difficulty Paying Gas/Electric Bills: No Difficulty Paying for Meds: No Currently Unemployed: No Education: Bachelor's Degree Difficulty w/ Childcare or Family Care: No Living arrangements: with family Occupation/Education: occupation 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 HEAD: Normocephalic, atraumatic. EYES: EOMI. ENT: Nares with very mild oozing of blood bilaterally, packing is in place bilaterally. Mucous membranes moist. No blood seen in the oropharynx NECK: Supple. No adenopathy or masses. CHEST: No respiratory distress. HEART: Regular rate EXTREMITIES: Normal range of motion. No edema. SKIN: Warm, dry, no rash. NEURO: No focal deficits. Alert and oriented x3. PSYCH: Normal mood and affect Course Course Emergency Course: Patient's bleeding has stopped. Hemoglobin is normal. Follow up with his surgeon as directed Consultations Consultation #1: Spoke with Dr. Moura about patient and workup. Will check hemoglobin, apply some Afrin, as long as bleeding in under control patient may be discharged Date: 04/07/25 Vital Signs Vital signs: Vital Signs Temperature 98.8 F 04/07/25 19:39 Pulse Rate 105 H 04/07/25 19:39 Respiratory Rate 20 04/07/25 19:39 Blood Pressure 151/101 H 04/07/25 19:39 Pulse Oximetry 96 04/07/25 19:39 Oxygen Delivery Room Air 04/07/25 19:39 Temperature 98.8 F 04/07/25 19:39 Pulse Rate 105 H 04/07/25 19:39 Respiratory Rate 20 04/07/25 19:39 Blood Pressure 151/101 H 04/07/25 19:39 Pulse Oximetry 96 04/07/25 19:39 Oxygen Delivery Room Air 04/07/25 19:39 MDM - Epistaxis Differential Diagnosis Differential diagnosis: Likely anterior epistaxis and posterior epistaxis Lab Data Attestation: I reviewed the patient's lab results. 04/08/25 00:54 Labs: Lab Results 04/08/25 Range/Units 00:54 WBC 19.1 H (4.5-10.0) K/mm3 RBC 4.76 (4.6-6.20) M/mm3 Hgb 14.7 (14.0-18.0) g/dL Hct 45.3 (42.0-52.0) % MCV 95.2 (80-100) fl MCH 30.9 (26-34) pg MCHC 32.5 (32-36) g/dl RDW 13.2 (11.5-14.5) % Plt Count 302 (150-375) k/mm3 MPV 9.6 (7.4-10.4) fl Immature Gran % (Auto) 0.4 (0-0.5) % Neut % (Auto) 81.7 H (45.5-73.1) % Lymph % (Auto) 10.8 L (18.3-44.2) % [place] % (Auto) 6.8 (2.6-8.5) % Eos % (Auto) 0.1 (0-4.4) % Baso % (Auto) 0.2 (0.2-1.2) % Lymph # (Auto) 2.06 (0.9-3.2) K/mm3 [place] # (Auto) 1.3 H (0.1-0.6) K/mm3 Eos # (Auto) 0.0 (0-0.3) K/mm3 Baso # (Auto) 0.0 (0.0-0.1) K/mm3 Abs Immat Gran (auto) 0.08 H (0.00-0.031) K/mm3 Absolute Neuts (auto) 15.6 H (1.3-6.7) K/mm3 Absolute Nucleated RBC 0.000 (0.0-0.012) K/mm3 Nucleated RBC % 0.0 (0.0-0.2) % Critical Care Time Critical Care Time Critical Care Time: No Discharge Plan Discharge Clinical Impression: Epistaxis Patient Disposition: Home Condition: Improved Instructions: Nosebleed (ED) Additional Instructions: Return to the emergency department if you experience fever, nosebleed you are unable to control, or any other symptoms that are concerning to you. Your hemoglobin was normal today. I'm hopeful you will feel more comfortable once that packing comes out tomorrow Follow up with your ENT doctor as directed Patient Language: Marshallese Prescriptions: No Action nifedipine 30 mg tablet extended release 30 mg PO DAILY rosuvastatin 40 mg tablet 40 mg PO DAILY losartan 100 mg tablet 100 mg PO DAILY prednisone 20 mg tablet 20 mg PO DAILY Qty: 14 1RF Rx Instructions: take 1 tablet daily with breakfast for 10 days and then take 1 tablet every other day for 8 days and then stop doxycycline hyclate 100 mg capsule 100 mg PO DAILY 21 Days Qty: 22 0RF Rx Instructions: to be started 10 days before surgery :take 2 pills together for the first day ,then take 1 pill once per day for 20 days methylprednisolone [Medrol (Jacob)] 4 mg tablets,dose pack See Rx Instructions PO PER PKG DIR Qty: 21 0RF Rx Instructions: to be used 6 days before surgery :PO PER PKG DIR chlorthalidone 25 mg tablet 25 mg PO DAILY Ubrelvy 100 mg tablet 100 mg PO ONCE PRN (Reason: migraine headache) Rx Instructions: as a single dose; may repeat once in >=2 hours after first dose if needed acetaminophen-codeine 300-15 mg tablet 1 tablet PO Q8H PRN (Reason: pain (scale score 7-10)) Qty: 15 0RF Rx Instructions: to be use for sever pain only for moderate to mild pain use regular Tylenol omeprazole 20 mg capsule,delayed release(DR/EC) 20 mg PO BID Qty: 180 3RF levothyroxine 137 mcg tablet 137 mcg PO DAILY Qty: 90 1RF Mounjaro 5 mg/0.5 mL pen injector See Rx Instructions .ROUTE .COMPLEX Qty: 2 6RF Dose Instruction: ADMINISTER 5 MG UNDER THE SKIN WEEKLY Patient Comments: For diabetes on Saturdays Rx Instructions: ADMINISTER 5 MG UNDER THE SKIN WEEKLY alprazolam 0.5 mg tablet 0.5 mg PO BID Qty: 60 1RF ezetimibe 10 mg tablet See Rx Instructions .ROUTE .COMPLEX Qty: 90 3RF Dose Instruction: TAKE 1 TABLET DAILY Rx Instructions: TAKE 1 TABLET DAILY Follow-up/Referrals: Mal Moura MD [Physician] - Andree Carson APRN [Primary Care Provider] -
[2025-04-08] MEDS: SODIUM CHLORIDE 0.9% IV 1,000 ML 999 ML IV CONT (00:24)
[2025-04-08] MEDS: SODIUM CHLORIDE 0.9% IV 100 ML 200 ML ×2 (00:26→00:28)
[2025-04-08] MEDS: METOCLOPRAMIDE HCL INJ 10 MG/2 ML VIAL IV PUSH (00:27)
[2025-04-08] MEDS: OXYMETAZOLINE HCL 0.05% NAS 15 ML BTL (*BKC) 1 SPRAY NASAL (00:34)
[2025-04-08 00:59] LABS: Hematocrit 45.3 % (42.0-52.0); Hemoglobin 14.7 g/dL (14.0-18.0); Immature Granulocyte Percent A 0.4 % (0-0.5); Lymphocytes Absolute Auto 2.06 K/mm3 (0.9-3.2); Mean Corpuscular HGB Conc 32.5 g/dl (32-36); Mean Corpuscular Hemoglobin 30.9 pg (26-34); Mean Corpuscular Volume 95.2 fl (80-100); Nucleated Red Blood Cells Absolute Auto 0.000 K/mm3 (0.0-0.012); Nucleated Red Blood Cells Perc 0.0 % (0.0-0.2); Platelet Count Result 302 k/mm3 (150-375); Red Blood Count 4.76 M/mm3 (4.6-6.20); White Blood Count 19.1 K/mm3 (4.5-10.0)
--- NOTE | 2025-04-08 02:03 | PC.NURSE ---
pt ambulatory with steady gait to use restroom
[2025-04-08 02:16] VITALS: BP 137/76; PULSE 76; RESP 16; TEMP 37.1; O2SAT 98
== END 2025-04-08 02:18 | disposition home or self-care (01) ==
PROVIDERS: Emergency Provider Physician Assistant; PCP Nurse Practitioner Adult Health
DX: R04.0 Epistaxis (principal); Z98.890 Other specified postprocedural states; I11.9 Hypertensive heart disease without heart failure; E07.9 Disorder of thyroid, unspecified; E11.9 Type 2 diabetes mellitus without complications; K21.9 Gastro-esophageal reflux disease without esophagitis; F17.210 Nicotine dependence, cigarettes, uncomplicated; Z86.73 Personal history of transient ischemic attack (TIA), and cerebral infarction without residual deficits; Z79.85 Long-term (current) use of injectable non-insulin antidiabetic drugs; Z79.899 Other long term (current) drug therapy
CPT/HCPCS: 36415; 85025; 96361; 96374; 96375; 99284; A9270; J1200; J2765; J7030

== ENCOUNTER 2025-07-04 13:17 | Outpatient (CLI) | payer BC, SELFPAY ==
--- OUTSIDE RECORDS SUMMARY | 2025-07-04 16:14 | XMS_ITS | Encounter Summary ---
Author Organization [facility] Address [address] [address] Care Team Providers Care Director Of Field Coordination Name Role Phone Jus Balderas MD Primary Care Provi melissa Felice Lindsey MD Primary Care Provider [phone] Jus Balderas MD Primary Care Provi melissa Felice Lindsey MD Primary Care Provider [phone] Kenneth Aviles MD Primary Care Provider [phone] Andree Carson NP Primary Care Provider Encounter Details Date Type Department Care Team (Latest Contact Info) Description 10/31/2016 Orders Only [facility] Cardiology ProviderAllen MD [address] [place] [id number] Social History Tobacco Use Types Packs/Day Years Used Date Smoking Tobacco: Never Assessed Alcohol Use Standard Drinks/Week Comments Yes 0 (1 standard drink = 0.6 oz pur e alcohol) Sex and Gender Information Value Date Recorded Sex Assigned at Not on file 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 Gender Identity Not on file Sexual Orientation [...] COVID: Suspected 10/18/2024 10/18/2024 10/18/2024 7:23 PM JUNIOR ACCOUNTANT BOOKKEEPER documented as of this encounter Care Teams Director Of Field Coordination Relationship Specialty Start Date End Date Jus Balderas MD [address] [place] [address] PCP - General 12/12/16 05/11/17 Felice Lindsey MD [address] [place] [address] PCP - General 11/14/16 12/11/16 Jus Balderas MD [address] [place] [address] PCP - General 07/09/12 11/13/16 Felice Lindsey MD [facility] [employer] [facility] [place] [address] PCP - General 05/12/17 04/28/23 Kenneth Aviles MD [address] [place] [address] [place] [address] PCP - General Family Medicine 04/29/23 10/17/24 Andree Carson NP [address] [place] [id number] PCP - General Nurse Practitioner 10/18/24 documented as of this encounter
--- OUTSIDE RECORDS SUMMARY | 2025-07-04 16:14 | XMS_ITS | Clinical Summary ---
Author Organization [facility] [employer] [facility] Address [address] [facility] [place] [address] Care Team Providers Care Contract Post Office Clerk Name Role Phone Unavailable Primary Care Provider Unavailabl e Source Comments [facility],non-owned Affiliates and Associated Physician Practices is amultiple site organization consisting of ambulatory clinics and hospital sitesin [place], [place], [place] and [place]. This disclosure is being madepursuant to the Care Everywhere program and may not contain all information available regarding this patient. 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 Not on file Not [...] Last Done Comments COLOGUARD (AGES 45-75) - COL ON CA SCREENING 1979 COLON MONITORING 1979 COLONOSCOPY - COLON CA SCREENING [address] CT COLONOGRAPHY - COLON CA SCREENING 1979 Colorectal Cancer Screening 1979 FIT - COLON CA SCREENING 1979 FLEX SIG - COLON CA SCREENING 1979 HIV SCREENING 1994 HEPATITIS C SCREENING 05/31/1997 DTAP/TDAP/TD VACCINES (1 - Tdap) 1998 HEPATITIS B VACCINE (1 of 3 - 19+ 3-dose series) 1998 SCREENING FOR DIABETES 12/13/2020 06/16/2017 DEPRESSION SCREENING 09/14/2024 COVID-19 VACCINE (1 - 2023-2 5 season) 2025 INFLUENZA VACCINE (#1) 2025 ZOSTER VACCINE (1 of 2) 2029 HIB VACCINE Aged Out No longer eligi ble based on patient's age to complete this topic HPV VACCINE Aged Out No longer eligi ble based on patient's age to complete this topic MENINGOCOCCAL (Group B) VACC INE SHARED DECISION-MAKING Aged Out No longer eligibl e based on patient's age to complete this topic MENINGOCOCCAL GROUPS A/C/Y/W VACCINE Aged Out No longer eligible b ased on patient's age to complete this topic [...] [facility] BUN/Creatinine Ratio NOT APPLICABLE 6 - 22 (calc) [facility] Sodium 144 135 - 146 mmol/L [facility] Potassium 3.8 3.5 - 5.3 mmol/L [facility] Chloride 107 98 - 110 mmol/L [facility] CO2 29 20 - 31 mmol/L [facility] Calcium 9.1 8.6 - 10.3 mg/dL [facility] Comment: Test Performed at: [facility] [place] [id number] [address] DANUTA CUBA DO,MPH 06/16/2017 9:52 AM CDT 06/16/2017 9:53 AM CDT Dandre Shahid MD LAB - CHEMISTRY ORDERABLES Final Result [facility] [id number] [place] [address] from Last 3 Months or Most Recently Relevant to Health Maintenance Insurance [employer] ANTHEM ANTHEM BCBS/BLUE BLUE CROSS BLUE SHIELD [place] SELF PAY NO INSURANCE Member Subscriber Plan / Payer (Ef fective for All Dates) Name:Rosendo Ley Member ID:Not on file Relation to Subscriber:Not on file Name:ROSENDO LEY Subscriber ID:Not on file (Home) Address: [address] [place] [address] [place] [address] Payer ID:Not on file Group ID:Not on file Type:Self Pay Address: [facility]
--- OUTSIDE RECORDS SUMMARY | 2025-07-04 16:14 | XMS_ITS | Clinical Summary ---
Author Organization [facility] Address [address] [place] [address] Care Team Providers Care Document Advisor Name Role Phone Shazialupis Andree GAMBLE Primary Care Provider [phone] Allergies No known active allergies Medications rizatriptan DIRECT MARKETING REPRESENTATIVE (MAXALT-DIRECT MARKETING REPRESENTATIVE) 10 mg disintegrating tablet Take 1 tablet (10 mg total) by mouth as needed 01/28/20 23 Active hydroCHLOROthiazid e (HYDRODIURIL) 25 mg tablet Take 1 tablet (25 mg total) by mouth daily 90 tablet 3 05/26/20 23 Active levothyroxine (SYNTHROID) 150 mcg tablet Take 1 tablet (150 mcg total) by mouth early interventionist before breakfast 90 tablet 3 05/26/20 23 [...] complication Assessment & Plan (08/27/2023 5:55 PM GANG INVESTIGATOR): Stable, well controlled; hemoglobin A1c at goal; [...] 09/04/2021 Assessment & Plan (08/27/2023 5:55 PM GANG INVESTIGATOR): Stable, well controlled; TSH at goal Continue levothyroxine 150 mcg daily Assessment & Plan (04/29/2023 4:45 PM CDT): Stable, well controlled; no major weight changes; energy levels are okay, at baseline Continue Synthroid 150 mcg daily History of myocardial infarction 09/04/2021 Hyperlipidemia 09/04/2021 Assessment & Plan (08/27/2023 5:56 PM GANG INVESTIGATOR): Stable, well controlled; lipids at goal today Continue rosuvastatin 40 mg daily Assessment & Plan (04/29/2023 4:46 PM CDT): Stable, well controlled; history of CVA and HI Follows with Cardiology Continue Vascepa 1 g q.i.d., rosuvastatin 40 mg daily Nonalcoholic fatty liver 02/05/2018 Myocardial infarction 02/05/2018 Hypertension 02/05/2018 Assessment & Plan (11/24/2023 1:52 PM CDT): BP at visit 134/96 Follows with cardiology Call to make an appt this week Continue Nifedipine 30 mg daily, Losartan 100 mg daily and HCTZ 25 mg daily Assessment & Plan (08/27/2023 5:55 PM GANG INVESTIGATOR): Not well controlled, blood pressure elevated in [...] Anxiety Hypertension Hyperlipidemia Type 2 diabetes mellitus patient has been on and off metformin. 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 Gender Identity Not on file Sexual Orientation Not on file Obstetrics History Last Filed Vital Signs Vital Sign Reading Time Taken Comments Blood Pressure 120/91 10/18/2024 5:53 PM GANG INVESTIGATOR Pulse 86 10/18/2024 10:48 PM GANG INVESTIGATOR Temperature 36.9 C (98.4 F) 10/18/2024 5:53 PM GANG INVESTIGATOR Respiratory Rate 18 10/18/2024 10:48 PM GANG INVESTIGATOR Oxygen Saturation 99% 10/18/2024 10:48 PM GANG INVESTIGATOR Inhaled Oxygen Concentration - - Weight 86.2 kg (190 lb) 10/18/2024 5:53 PM GANG INVESTIGATOR Height 177.8 cm (5' 10) 11/24/2023 1:26 [...] Panel 11/23/2024 11/24/2023, 0802/2023, 11/14/2016 Influenza Vaccine (#1) 2025 eGFR 10/18/2025 10/18/2024, 11/12, 11/23/2023, Additional history exists DTaP/Tdap/Td Vaccine (2 - Td or Tdap) 09/03/2032 09/03/2022 HPV Vaccines Aged Out No longer eligi ble based on patient's age to complete this topic Procedures Procedure Name Priority Date/Time Associated Diagnosis Comments EGFR STAT 10/18/2024 6:27 PM GANG INVESTIGATOR HEMOGLOBIN A1C Routine 11/24/2023 1:51 PM CDT [...] Maintenance Results * eGFR (10/18/2024 6:27 PM GANG INVESTIGATOR) eGFR 87 >=60 mL/min/1. 73 m2 Comment: [...] last reviewed 2021. Blood 10/18/2024 6:27 PM GANG INVESTIGATOR 10/18/2024 6:34 PM GANG INVESTIGATOR us Jace Steen MD LAB BLOOD ORDERABLES Final R esult Performing Organization Address City/[facility] Co de Phone Number [facility] ([place]) 1 [facility] [place] [address] * (ABNORMAL) Hemoglobin A1c (11/24/2023 1:51 PM CDT) Hgb A1C 7.0(H) 4.0 - 5.6 % Comment:Testing performed by : [facility], [address] [place] [address]., [address] Estimated Average Glucose 154 mg/dL [facility] ([place] Comment: The ADA recommends reporting an estimated Average Glucose (eAG) with all Hemoglobin A1c results using the equation derived from a study of 507 normal and diabetic adults. Minority populations were underrepresented and children were not included. (Diabetes Care 31:6828-1623, 2008). The eAG is not equivalent to a fasting glucose. Testing performed by: [facility], [address] [place] [address], [place]., [address] Blood 11/24/2023 1:51 PM CDT 11/24/2023 7:49 PM CDT us Kenneth Aviles MD LAB BLOOD ORDERABLES Elizabeth l Result Performing Organization Address City/[facility]/ZIP Co de Phone Number [facility] VALENZUEL[facility] ([place]) 1 [facility] [place] [address] * (ABNORMAL) Lipid panel (11/24/2023 1:51 PM [...] last revised on 2018. Testing performed by: [facility], [address] [place] [address]., [address] Triglycerides 195(H) <=149 mg/dL [facility] ([place]) [...] last revised on 2018. Testing performed by: [facility], [address] [place] [address]., [address] HDL 36(L) >=40 mg/dL [facility] ([place]) [...] last revised on 2018. Testing performed by: [address] [address] LDL, calculated 66 <=129 mg/dL [facility] [...] last revised on 2018. Testing performed by: [address] [address] Non-HDL Cholesterol 105 mg/dL [facility] ([place]) [...] last revised on 2018. Testing performed by: [facility], [address] [place] [address]., [address] Chol/HDL ratio 4 [facility] ([place]) Comment:Testing performed by : [address] [address] Blood 11/24/2023 1:51 PM CDT 11/24/2023 7:49 PM CDT us Kenneth Aviles MD LAB BLOOD ORDERABLES Elizabeth l Result [facility] ([place]) 1 [facility] Department [place] [address] * Albumin Creatinine Ratio, Urine (04/29/2023 3:10 PM CDT) Albumin Ur <12.0 mg/L [facility] ([place]) Comment: Interpretive Data No reference range established. Current interpretive data was last revised 2019. Testing performed by: [address] [address] Creatinine Ur 93.5 mg/dL [facility] ([place]) Comment: Interpretive Data No reference range established. Current interpretive data was last revised 2019. Testing performed by: [facility], [address] [place] [address]., [address] Albumin Creatinine Ratio, Ur <13 1 - 29 mg/g [facility] ([place]) Comment:Testing performed by : [facility], [address] [place] [address]., [address] Urine 04/29/2023 3:10 PM CDT 04/29/2023 8:32 PM CDT us Kenneth Aviles MD LAB URINE ORDERABLES Elizabeth lópez Result [facility] ([place]) 1 [facility] Department [place] [address] from Last 3 Months or Most Recently Relevant to Health Maintenance Insurance Advance Directives For more information, please contact: [phone] Documents on File Type Date Recorded Patient Research And Development Director Expl anation ADVANCE DIRECTIVE 08/24/2015 12:00 AM [facility] [employer] HELPER FINANCIAL/MEDICAL Care Teams Document Advisor Relationship Specialty Start Date End Date Andree Carson NP [address] [place] [address] PCP - General Nurse Practitioner 10/18/24
--- OUTSIDE RECORDS SUMMARY | 2025-07-04 16:14 | XMS_ITS | Clinical Summary ---
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 Not on file Last Filed Vital Signs Vital Sign Reading Time Taken Comments Blood Pressure 127/93 09/03/2021 9:34 PM [employer] Pulse 92 09/03/2021 9:34 PM [employer] PROF[employer] Temperature 36.3 C (97.4 F) 09/03/2021 5:04 PM [employer] PROF[employer] Respiratory Rate 18 09/03/2021 9:34 PM [employer] PROFESSIONAL Oxygen Saturation 98% 09/03/2021 9:34 PM [employer]UM[employer] SERVICES PROFESSIONAL Inhaled Oxygen Concentration - - Weight 99.8 kg (220 lb) 09/03/2021 5:04 PM [employer] SERVICES PROFESSIONAL Height 177.8 cm (5' 10) 09/03/2021 5:04 PM HUMAN SERVICES PROFESSIONAL Body Mass Index 31.57 09/03/2021 5:04 PM HUM[employer] SERVICES PROFESSIONAL Plan of Treatment Health Maintenance Due Date Last Done Comments Hepatitis C Virus (HCV) Screening 1980 Hepatitis B Immunization (1 of 3 - 19+ 3-dose series) 1998 Cologuard 2024 Colonoscopy 2024 Colorectal Cancer Screening 2024 Immunochemical Fecal Occult Blood 2024 Influenza Immunization (#1) 2025 SARS-COV-2 Immunization ( season) 2025 12/22/2020, 12/01/2020 Respiratory Syncytial Virus (RSV) Immunization (Adult) (1 - 1-dose 75+ series) 2054 DTaP/Tdap/Td Immunization Discontinued 09/14/2005 TdaP Immunization Completed 09/14/2005 Human Papillomavirus (HPV) Immunization Aged Out No longer eligible based on patient's age to complete this topic Meningococcal Immunization (ACWY) Aged Out No longer eligible based on patient's age to complete this topic Pneumococcal Immunization Combined Aged Out No longer eligible based on patient's age to complete this topic Rotavirus Immunization Aged Out No lo nger eligible based on patient's age to complete this topic Insurance [facility] Care Teams Materials Analyst Relationship Specialty Start Date End Date Provider, None [place] PCP - General 09/03/21
--- OUTSIDE RECORDS SUMMARY | 2025-07-04 16:14 | XMS_ITS | Encounter Summary ---
Author Organization [facility] Address [address] [address] Care Team Providers Care Funeral Home Director Name Role Phone Jus Balderas MD Primary Care Provi melissa Felice Lindsey MD Primary Care Provider [phone] Jus Balderas MD Primary Care Provi melissa Felice Lindsey MD Primary Care Provider [phone] Kenneth Aviles MD Primary Care Provider [phone] Andree Carson NP Primary Care Provider [phone] Encounter Details Date Type Department Care Team (Latest Contact Info) Description 10/30/2016 Orders Only [facility] [place] Cardiology ProviderAllen MD [address] [place] [id number] Social History Tobacco Use Types Packs/Day Years Used Date Smoking Tobacco: Never Assessed Alcohol Use Standard Drinks/Week Comments Yes 0 (1 standard drink = 0.6 oz pur e alcohol) Sex and Gender Information Value Date Recorded Sex Assigned at Not on file 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 Gender Identity Not on file Sexual Orientation [...] COVID: Suspected 10/18/2024 10/18/2024 10/18/2024 7:23 PM SWING TYPE LATHE OPERATOR documented as of this encounter Care Teams Funeral Home Director Relationship Specialty Start Date End Date Jus Balderas MD [address] [place] [address] PCP - General 12/12/16 05/11/17 Felice Lindsey MD [address] [place] [address] PCP - General 11/14/16 12/11/16 Jus Balderas MD [address] [place] [address] PCP - General 07/09/12 11/13/16 Felice Lindsey MD [facility] [address] [place] [id number] PCP - General 05/12/17 04/28/23 Kenneth Aviles MD [address] [place] [address] PCP - General Family Medicine 04/29/23 10/17/24 Andree Carson NP [address] [place] [address] [place] [address] PCP - General Nurse Practitioner 10/18/24 documented as of this encounter
[2025-07-04 19:21] LABS: Hematocrit 48.3 % (42.0-52.0); Hemoglobin 15.5 g/dL (14.0-18.0); Mean Corpuscular HGB Conc 32.1 g/dl (32-36); Mean Corpuscular Hemoglobin 31.0 pg (26-34); Mean Corpuscular Volume 96.6 fl (80-100); Platelet Count Result 263 k/mm3 (150-375); Red Blood Count 5.00 M/mm3 (4.6-6.20); White Blood Count 7.0 K/mm3 (4.5-10.0)
[2025-07-04 19:33] LABS: Alanine Aminotransferase 41 U/L (6-50); Albumin Level 4.9 g/dL (3.5-5.1); Alkaline Phosphatase 53 U/L (38-126); Anion Gap 9 mmol/L (4-12); Aspartate Amino Transferase 80 U/L (17-59); Bilirubin,Total 0.7 mg/dL (0.2-1.3); Blood Urea Nitrogen 17 mg/dL (9-20); Calcium 9.4 mg/dL (8.4-10.2); Carbon Dioxide 32 mmol/L (22-30); Chloride 98 mmol/L (98-107); Cholesterol 117 mg/dL (0-200); Estimated Glomerular Filt Rate > 60; Glucose 80 mg/dL (65-110); HDL Direct 45 mg/dL; Potassium 3.7 mmol/L (3.4-5.0); Sodium 139 mmol/L (137-145); Total Protein 8.2 g/dL (6.3-8.2); Triglycerides 148 mg/dL (<150)
[2025-07-04 20:07] LABS: MALB Creatinine Ratio 33.4 mg/g (0-30)
[2025-07-04 20:09] LABS: Thyroid Stimulating Hormone 1.230 uIU/mL (0.465-4.680)
[2025-07-04 21:47] LABS: Hemoglobin A1C 5.2 % (<5.7)
== END 2025-07-04 13:18 | disposition home or self-care (01) ==
LOC: ANHBWCLAB 13:18
PROVIDERS: PCP Nurse Practitioner Adult Health; Visit Provider Nurse Practitioner Adult Health
DX: Z00.00 Encounter for general adult medical examination without abnormal findings (principal); E11.9 Type 2 diabetes mellitus without complications
CPT/HCPCS: 36415; 80053; 80061; 82043; 82565; 83036; 84443; 85027